=== PATIENT | female | born 1940 | race African-American/Black ===

== ENCOUNTER → 2019-02-26 | Outpatient (CLI) | payer MEDICARE, MEDICAID ==
[~2019-02-26] MED LIST: ACET250T3 PO; ADENOSINE 67 MG in GIVE UN-DILUTED 0 ML IV ONE; ADENOSINE 90 MG/30 ML INJ IV ONE; AMLO5TAB13 PO; ASP81EC PO; ATEN50TA PO; BENA20TA14 PO; DICL1GEL26 TD; ERGO2000 PO; ESOM40CA39 PO; FLUO0.05 EX; GLIM1TAB2 PO; IBUP600T27 PO; LOSA-49 PO; METF-370 PO; NATE60TA5 PO; TRIA75TA55 PO
[2019-02-26 16:28] LABS: Potassium 5.2 mmol/L (3.5-5.1); Urine Blood Negative /uL (Negative); Urine Specific Gravity 1.011 (1.001-1.035)
[2019-02-26 16:30] LABS: Basophils # (auto) 0.1 uL; Basophils % (auto) 0.7 % (0.0-2.0); Eosinophils # (auto) 0.2 uL; Eosinophils % (auto) 3.1 % (0.0-7.0); Hematocrit 36.7 % (36.0-46.0); Lymphocytes # (auto) 1.6 uL; Mean Corpuscular Hemoglobin 30.9 pg (28.0-32.0); Mean Corpuscular Hgb Conc. 32.7 g/dL (32.0-36.0); Mean Corpuscular Volume 94.6 fL (80.0-100.0); Monocytes # (auto) 0.6 uL; Monocytes % (auto) 8.6 % (0.0-12.0); Neutrophils # (auto) 4.6 uL; Neutrophils % (auto) 65.6 % (37.0-80.0); Nucleated Red Blood Cells % 0.5 %; Platelet Count (auto) 302 10^3/uL (140-450); Red Blood Cells 3.87 10^6/uL (4.0-5.20); Red Cell Distribution Width 13.9 % (11.8-14.3); White Blood Cell 7.1 10^3/uL (4.4-10.8)
[2019-02-26 16:39] LABS: Albumin 3.9 g/dL (3.4-5.0); BUN/Creatinine Ratio 31.5; Bilirubin, Total 0.2 mg/dL (0.2-1.0); Calcium 9.1 mg/dL (8.5-10.1); Total Protein 8.2 g/dL (6.4-8.2)
== END | disposition home or self-care (01) ==
LOC: Rad HDHVI 09:37
PROVIDERS: ATTEND Internal Medicine Cardiovascular Disease
DX: I99.8 Other disorder of circulatory system (principal); E11.21 Type 2 diabetes mellitus with diabetic nephropathy; E11.40 Type 2 diabetes mellitus with diabetic neuropathy, unspecified; D64.9 Anemia, unspecified; N39.0 Urinary tract infection, site not specified; E11.65 Type 2 diabetes mellitus with hyperglycemia; E11.59 Type 2 diabetes mellitus with other circulatory complications; I11.0 Hypertensive heart disease with heart failure; I50.9 Heart failure, unspecified
CPT/HCPCS: 36415; 78452; 80053; 81003; 85025; 87086; 87088; 87186; 93005; 96374; 96375; A9500; J0153

== ENCOUNTER → 2019-03-05 | Outpatient (CLI) | payer MEDICARE, MEDICAID ==
[~2019-03-05] VITALS: Ht 30.5 cm; Wt 0.5 kg
[~2019-03-05] MED LIST changes: -ADENOSINE 67 MG in GIVE UN-DILUTED 0 ML IV ONE; -ADENOSINE 90 MG/30 ML INJ IV ONE; +cefTRIAXone 1GM/50ML D5W 50 ML IV SCH; +cefTRIAXone SOD 1,000 MG VL ONE
[2019-03-05 10:10] VITALS: BP 169/59
[2019-03-05 10:45] VITALS: BP 166/59
--- NOTE | 2019-03-05 10:50 | NUR ---
IN TO CLINIC FOR IV ANTIBIOTICS. FIRST DAY OF 3 DAYS. PT REPORTS MANY SENSITIVITIES, BUT NO ALLERGIES. ADMINISTERED IV ROCEPHIN BY BUTTERFLY OVER 3 MINUTES SLOW IVP. TOLERATED WELL. MONITORED FOR 15 MINUTES POST IV PUSH. NO ADVERSE REACTION. PT REPORTS FEELING 'FINE" . Discharge Instructions See e-MAR for any mediations given with this visit. Patient education given on disease process. Patient verbalized understanding. Previous labs reviewed. Patient discharged in stable condition with after care instructions and follow up appointment. FOR 03/06/19. MEDICATION ADMINISTRATION ROCEPHIN 1 GRAM IVP AT 1033
== END | disposition home or self-care (01) ==
LOC: CHF HDHVI 10:06
PROVIDERS: ATTEND Internal Medicine Cardiovascular Disease
DX: N39.0 Urinary tract infection, site not specified (principal); I11.0 Hypertensive heart disease with heart failure; I50.9 Heart failure, unspecified; E11.21 Type 2 diabetes mellitus with diabetic nephropathy; E11.40 Type 2 diabetes mellitus with diabetic neuropathy, unspecified; E11.59 Type 2 diabetes mellitus with other circulatory complications; I99.8 Other disorder of circulatory system
CPT/HCPCS: 96374; G0463; J0696; 96375

== ENCOUNTER → 2019-03-06 | Outpatient (CLI) | payer MEDICARE, MEDICAID ==
[~2019-03-06] MED LIST changes: +LIDOCAINE 1% (LOCAL ANESTH.) PF 5ml SDV ONE; -cefTRIAXone 1GM/50ML D5W 50 ML IV SCH; +cefTRIAXone W LIDOCAINE 1 GM IM IM ONE
[2019-03-06 13:08] VITALS: BP 177/67
[2019-03-06 14:08] VITALS: BP 182/65
--- NOTE | 2019-03-06 14:11 | NUR ---
MULTIPLE ATTEMPTS WITH BUTTERFLY FOR IVP ROCEPHIN. 3 SUCCESSFUL ATTEMPTS WITH UNABLE TO ADMINISTER MEDICATION DUE TO IV BLOWING WITH VERY SLOW ADMINISTRATION. TOTAL 6 ATTEMPTS BY 3 RNS FOR BUTTERFLY INSERTION, UNSUCCESSFUL. CLINIC PROVIDER CONSULTED AND NEW ORDER FOR IM ADMINISTRATION RECIEVED. MEDICATED PER ORDER
--- NOTE | 2019-03-06 14:17 | NUR ---
CHF MEDICATION ADMINISTRATION ROCEPHIN WITH LIDOCAINE 1 GRAM IM TO RIGHT GLUT AT 1410
== END | disposition home or self-care (01) ==
LOC: CHF HDHVI 13:08
PROVIDERS: ATTEND Internal Medicine Cardiovascular Disease
DX: N39.0 Urinary tract infection, site not specified (principal); I11.0 Hypertensive heart disease with heart failure; I50.9 Heart failure, unspecified; E11.21 Type 2 diabetes mellitus with diabetic nephropathy; E11.40 Type 2 diabetes mellitus with diabetic neuropathy, unspecified; E11.59 Type 2 diabetes mellitus with other circulatory complications; I99.8 Other disorder of circulatory system
CPT/HCPCS: 96372; G0463; J0696

== ENCOUNTER → 2019-03-07 | Outpatient (CLI) | payer MEDICARE, MEDICAID ==
[~2019-03-07] MED LIST changes: -LIDOCAINE 1% (LOCAL ANESTH.) PF 5ml SDV ONE; +cefTRIAXone 1GM/50ML D5W 50 ML IV SCH; -cefTRIAXone W LIDOCAINE 1 GM IM IM ONE
[2019-03-07 13:20] VITALS: BP 161/74
--- NOTE | 2019-03-07 13:20 | NUR ---
CHF PT ARRIVED AT CHF CLINIC ALERT ORIENTED AND IN 0 DISTRESS. VITAL SIGNS OBTAINED. PT HERE FOR ANTIBIOTICS FOR CURRENT UTI
--- NOTE | 2019-03-07 13:30 | NUR ---
IV removal IV DC'd with sterile technique, catheter fully intact. Pressure dressing applied to site. Patient tolerated procedure well. Discharged with aftercare instructions per MD. NOTE:
[2019-03-07 13:40] VITALS: BP 166/76
--- NOTE | 2019-03-07 13:40 | NUR ---
Discharge Instructions See e-MAR for any mediations given with this visit. Patient education given on disease process. Patient verbalized understanding. Previous labs reviewed. Patient discharged in stable condition with after care instructions and follow up appointment. MEDICATIONS 1325 ROCEPHIN 1 GRAM IVPB X 1 Addendum: 03/07/19 at 1412 by RUTH CINTRON RN RN NC 1325 ROCEPHIN 1 GRAM IVP
--- NOTE | 2019-03-07 14:07 | NUR ---
IV insertion IV access obtained, via clean sterile technique by inserting A BUTTERFLY CATHETER after [1] attempt(s). IV secured properly. No trauma to site. Patient tolerated procedure well. Addendum: 03/07/19 at 1408 by RUTH CINTRON RN RN MT TIME ACTUALLY 1325
== END | disposition home or self-care (01) ==
LOC: CHF HDHVI 13:11
PROVIDERS: ATTEND Internal Medicine Cardiovascular Disease
DX: N81.10 Cystocele, unspecified (principal); N39.0 Urinary tract infection, site not specified; E11.40 Type 2 diabetes mellitus with diabetic neuropathy, unspecified; I11.0 Hypertensive heart disease with heart failure; I50.9 Heart failure, unspecified; E11.59 Type 2 diabetes mellitus with other circulatory complications; E11.21 Type 2 diabetes mellitus with diabetic nephropathy; I99.9 Unspecified disorder of circulatory system
CPT/HCPCS: 96374; G0463; J0696

== ENCOUNTER → 2019-04-11 | Outpatient (CLI) | payer MEDICARE, MEDICAID ==
[~2019-04-11] MED LIST changes: +GENTAMICIN SULF 80 MG/2 ML VIAL ONE; +GENTAMICIN SULFATE 160 MG in D5W 5% 100 ML IV ONE; -cefTRIAXone 1GM/50ML D5W 50 ML IV SCH; -cefTRIAXone SOD 1,000 MG VL ONE
[2019-04-11 15:43] VITALS: BP 187/77
--- NOTE | 2019-04-11 17:03 | NUR ---
CHF PT ARRIVED TO CHF CLINIC FROM [facility] OFFICE TREATMENT OF UTI. A/O X 3 0 DISTRESS V/S OBTAINED.
--- NOTE | 2019-04-11 17:09 | NUR ---
IV insertion IV access obtained, via clean sterile technique by inserting 24 gauge catheter at after attempt(s). IV secured properly. No trauma to site. Patient tolerated procedure well.
[2019-04-11 17:30] VITALS: BP 188/78
--- NOTE | 2019-04-11 17:30 | NUR ---
CHF CLINIC Discharge Instructions See e-MAR for any mediations given with this visit. Patient education given on disease process. Patient verbalized understanding. Previous labs reviewed. Patient discharged in stable condition with after care instructions and follow up appointment. NOTE GENT IV [id number] ADMIN BY SUSANNE INIGUEZ
--- NOTE | 2019-04-11 17:30 | NUR ---
IV removal IV DC'd with sterile technique, catheter fully intact. Pressure dressing applied to site. Patient tolerated procedure well.
[2019-04-12 11:58] LABS: Urine Blood Negative /uL (Negative); Urine Specific Gravity 1.012 (1.001-1.035)
== END | disposition home or self-care (01) ==
LOC: LAB 15:39
PROVIDERS: ATTEND Internal Medicine Cardiovascular Disease
DX: N39.0 Urinary tract infection, site not specified (principal)
CPT/HCPCS: 81003; 87086; 87088; 87186; 96365; G0463; J1580; J7060

== ENCOUNTER → 2019-04-23 | Outpatient (CLI) | payer MEDICARE, MEDICAID ==
[~2019-04-23] VITALS: Ht 30.5 cm; Wt 0.5 kg
[~2019-04-23] MED LIST changes: -GENTAMICIN SULF 80 MG/2 ML VIAL ONE; -GENTAMICIN SULFATE 160 MG in D5W 5% 100 ML IV ONE; +LIDOCAINE 1% (LOCAL ANESTH.) PF 5ml SDV ONE; +LIDOCAINE 1% HCL (LOCAL ANESTH.) INJ 20ML MDV ID ONE; +cefTRIAXone SOD 1,000 MG VL ONE; +cefTRIAXone W LIDOCAINE 1 GM IM IM ONE
[2019-04-23 12:00] VITALS: BP 184/67
[2019-04-23 12:30] VITALS: BP 175/66
--- NOTE | 2019-04-23 12:30 | NUR ---
IN TO CLINIC FOR FOLLOW UP REGARDING CHRONIC UTI. ORDERS IN PLACE FOR IM INJECTION. ORDERS CARRIED OUT AND TOLERATED WELL. Discharge Instructions See e-MAR for any mediations given with this visit. Patient education given on disease process. Patient verbalized understanding. Previous labs reviewed. Patient discharged in stable condition with after care instructions and follow up appointment FOR 04/24/19 MEDICATION ADMINIATRATION ROCEPHIN 1 GRAM IM WITH LIDOCAINE TO LEFT GLUT AT 1224
== END | disposition home or self-care (01) ==
LOC: CHF HDHVI 11:57
PROVIDERS: ATTEND Internal Medicine Cardiovascular Disease
DX: N39.0 Urinary tract infection, site not specified (principal)
CPT/HCPCS: 96372; G0463; J0696; J2001

== ENCOUNTER → 2019-04-24 | Outpatient (CLI) | payer MEDICARE, MEDICAID ==
[~2019-04-24] MED LIST changes: -AMLO5TAB13 PO; +AMLO5TAB15 PO; -LIDOCAINE 1% HCL (LOCAL ANESTH.) INJ 20ML MDV ID ONE; +LOSA-39 PO; -LOSA-49 PO
[2019-04-24 12:05] VITALS: BP 179/73
[2019-04-24 12:48] VITALS: BP 176/68
--- NOTE | 2019-04-24 12:50 | NUR ---
IN TO CLINIC FOR SECOND DOSE OF IM MEDICATION FOR SECOND UTI. MEDICATED PER ORDER. WITHOUT DISTRESS OR DISCOMFORT. Discharge Instructions See e-MAR for any mediations given with this visit. Patient education given on disease process. Patient verbalized understanding. Previous labs reviewed. Patient discharged in stable condition with after care instructions and follow up appointment FOR TOMORROW. MEDICATION ADMINISTRATION ROCEPHIN 1 GRAM IM WITH LIDOCAINE TO LEFT GLUT AT 1248
== END | disposition home or self-care (01) ==
LOC: CHF HDHVI 12:05
PROVIDERS: ATTEND Internal Medicine Cardiovascular Disease
DX: N39.0 Urinary tract infection, site not specified (principal)
CPT/HCPCS: 96372; G0463; J0696

== ENCOUNTER → 2019-04-25 | Outpatient (CLI) | payer MEDICARE, MEDICAID ==
[~2019-04-25] VITALS: Ht 30.5 cm; Wt 0.5 kg
[2019-04-25 12:00] VITALS: BP 180/82
[2019-04-25 12:20] VITALS: BP 176/69
--- NOTE | 2019-04-25 12:20 | NUR ---
CHF Clinic Discharge Instructions See e-MAR for any mediations given with this visit. Patient education given on disease process. Patient verbalized understanding. Previous labs reviewed. Patient discharged in stable condition with after care instructions and follow up appointment. Note Kely Guzman admin by Josefa CHONG.
== END | disposition home or self-care (01) ==
LOC: CHF HDHVI 12:00
PROVIDERS: ATTEND Internal Medicine Cardiovascular Disease
DX: N39.0 Urinary tract infection, site not specified (principal)
CPT/HCPCS: 96372; G0463; J0696

== ENCOUNTER → 2019-05-02 | Outpatient (CLI) | payer MEDICARE, MEDICAID ==
[~2019-05-02] MED LIST changes: +AMLO5TAB13 PO; -AMLO5TAB15 PO; -LIDOCAINE 1% (LOCAL ANESTH.) PF 5ml SDV ONE; -LOSA-39 PO; +LOSA-49 PO; -cefTRIAXone SOD 1,000 MG VL ONE; -cefTRIAXone W LIDOCAINE 1 GM IM IM ONE
[2019-05-03 12:35] LABS: Urine Blood Negative /uL (Negative); Urine Specific Gravity 1.014 (1.001-1.035)
== END | disposition home or self-care (01) ==
LOC: LAB 16:21
PROVIDERS: ATTEND Internal Medicine Cardiovascular Disease
DX: N39.0 Urinary tract infection, site not specified (principal)
CPT/HCPCS: 81003

== ENCOUNTER → 2019-06-20 | Outpatient (CLI) | payer MEDICARE, MEDICAID ==
[~2019-06-20] MED LIST changes: -AMLO5TAB13 PO; +AMLO5TAB15 PO; +LOSA-39 PO; -LOSA-49 PO
[2019-06-21 12:02] LABS: Urine Blood Negative /uL (Negative); Urine Specific Gravity 1.015 (1.001-1.035)
== END | disposition home or self-care (01) ==
LOC: LAB 15:37
PROVIDERS: ATTEND Internal Medicine Cardiovascular Disease
DX: N39.0 Urinary tract infection, site not specified (principal)
CPT/HCPCS: 81003; 87086

== ENCOUNTER → 2019-06-27 | Outpatient (CLI) | payer MEDICARE, MEDICAID ==
[2019-06-27 16:14] LABS: Urine Blood Negative /uL (Negative); Urine Specific Gravity 1.017 (1.001-1.035)
== END | disposition home or self-care (01) ==
LOC: LAB 13:15
PROVIDERS: ATTEND Internal Medicine Cardiovascular Disease
DX: N39.0 Urinary tract infection, site not specified (principal)
CPT/HCPCS: 81003; 87086

== ENCOUNTER → 2019-10-22 | Outpatient (CLI) | payer MEDICARE, MEDICAID ==
[2019-10-22 16:31] LABS: Urine Blood Negative /uL (Negative); Urine Specific Gravity 1.016 (1.001-1.035)
== END | disposition home or self-care (01) ==
LOC: LAB 12:23
PROVIDERS: ATTEND Internal Medicine Cardiovascular Disease
DX: N39.0 Urinary tract infection, site not specified (principal)
CPT/HCPCS: 81003; 87086

== ENCOUNTER → 2019-10-31 | Outpatient (CLI) | payer MEDICARE, MEDICAID ==
[~2019-10-31] MED LIST changes: -GLIM1TAB2 PO; +GLIM1TAB3 PO; +IOHEXOL 350 MG/ML 100ML IJ ONE; +READI-CAT 2 (BARIUM SULF)(VANILLA SMOOTHIE) 450ML ONE; +SODIUM CHLORIDE 0.9% 250 ML IV ONE
[2019-10-31 13:30] VITALS: BP 168/54
[2019-10-31 15:29] LABS: BUN/Creatinine Ratio 25.2; Calcium 8.4 mg/dL (8.5-10.1); Magnesium 1.7 mg/dL (1.6-2.6); Potassium 4.4 mmol/L (3.5-5.1)
[2019-10-31 16:30] VITALS: BP 166/64
== END | disposition home or self-care (01) ==
LOC: Rad HDHVI 13:04
PROVIDERS: ATTEND Internal Medicine Cardiovascular Disease
DX: R42 Dizziness and giddiness (principal); R06.02 Shortness of breath; R94.4 Abnormal results of kidney function studies; E83.40 Disorders of magnesium metabolism, unspecified; E11.22 Type 2 diabetes mellitus with diabetic chronic kidney disease; N18.9 Chronic kidney disease, unspecified; I10 Essential (primary) hypertension; N39.0 Urinary tract infection, site not specified
CPT/HCPCS: 36415; 74176; 80048; 83735; 96360; G0463; J7050; Q9967; 96365

== ENCOUNTER → 2020-01-02 | Outpatient (CLI) | payer MEDICARE, MEDICAID ==
[~2020-01-02] MED LIST changes: -IOHEXOL 350 MG/ML 100ML IJ ONE; -READI-CAT 2 (BARIUM SULF)(VANILLA SMOOTHIE) 450ML ONE; -SODIUM CHLORIDE 0.9% 250 ML IV ONE
[2020-01-02 16:04] LABS: Urine Blood Negative /uL (Negative); Urine Specific Gravity 1.014 (1.001-1.035)
== END | disposition home or self-care (01) ==
LOC: LAB 14:22
PROVIDERS: ATTEND Internal Medicine Cardiovascular Disease
DX: N39.0 Urinary tract infection, site not specified (principal)
CPT/HCPCS: 81003; 87086; 87088; 87186

== ENCOUNTER → 2020-01-11 | Outpatient (CLI) | payer MEDICARE, MEDICAID ==
[2020-01-11 15:31] LABS: Urine Blood Negative /uL (Negative); Urine Specific Gravity 1.016 (1.001-1.035)
== END | disposition home or self-care (01) ==
LOC: LAB 11:06
PROVIDERS: ATTEND Internal Medicine Cardiovascular Disease
DX: N39.0 Urinary tract infection, site not specified (principal)
CPT/HCPCS: 81003

== ENCOUNTER → 2020-01-31 | Outpatient (CLI) | payer MEDICARE, MEDICAID ==
[~2020-01-31] MED LIST changes: +DOXA2TAB PO
[2020-01-31 15:51] LABS: Urine Blood Negative /uL (Negative); Urine Specific Gravity 1.015 (1.001-1.035)
== END | disposition home or self-care (01) ==
LOC: LAB 13:29
PROVIDERS: ATTEND Internal Medicine Cardiovascular Disease
DX: N39.0 Urinary tract infection, site not specified (principal)
CPT/HCPCS: 81003; 87086

== ENCOUNTER 2020-02-03 17:40 | Inpatient (IN) | payer MEDICARE, MEDICAID ==
[~2020-02-03] VITALS: Ht 170.2 cm; Wt 86.3 kg
[~2020-02-03 17:40] MED LIST changes: -DOXA2TAB PO
[2020-02-03 18:52] LABS: Basophils # (auto) 0.1 10 ^3/uL (0-0.2); Basophils % (auto) 0.6 % (0.0-2.0); Eosinophils # (auto) 0.1 10 ^3/uL (0-0.8); Eosinophils % (auto) 1.3 % (0.0-7.0); Hematocrit 35.7 % (36.0-46.0); Hemoglobin 11.9 g/dL (12.2-16.2); Lymphocytes # (auto) 0.9 10 ^3/uL (0.4-5.4); Lymphocytes % (auto) 9.5 % (10.0-50.0); Mean Corpuscular Hemoglobin 32.3 pg (28.0-32.0); Mean Corpuscular Hgb Conc. 33.4 g/dL (32.0-36.0); Mean Corpuscular Volume 96.8 fL (80.0-100.0); Monocytes # (auto) 0.5 10 ^3/uL (0-1.3); Monocytes % (auto) 5.4 % (0.0-12.0); Neutrophils % (auto) 83.2 % (37.0-80.0); Platelet Count (auto) 220 10^3/uL (140-450); Red Blood Cells 3.69 10^6/uL (4.0-5.20); Red Cell Distribution Width 14.5 % (11.8-14.3); White Blood Cell 9.6 10^3/uL (4.4-10.8)
[2020-02-03 19:31] LABS: Albumin 3.9 g/dL (3.4-5.0); Calcium 8.5 mg/dL (8.5-10.1)
[2020-02-03 19:36] LABS: Bilirubin, Total 0.2 mg/dL (0.2-1.0)
[2020-02-03 19:47] LABS: INR 0.98 (0.9-1.15); Partial Thromboplastin Time 29.8 sec (23.64-32.05)
[2020-02-03 19:58] LABS: Potassium 6.1 mmol/L (3.5-5.1)
[2020-02-03] MEDS ORDERED: ASPirin-EC 81 mg tab PO ONE (20:15)
[2020-02-03] MEDS ORDERED: InsuLIN REG 1unit/0.01ml Soln (100units/ml) IV ONE (20:30)
[2020-02-03] MEDS ORDERED: SODIUM BICARBONATE 8.4% INJ 50ML SYRINGE IV ONE (20:30)
[2020-02-03] MEDS ORDERED: DEXTROSE (50%) 50ML SYRG IV ONE (20:30)
[2020-02-03] MEDS ORDERED: CALCIUM GLUC 4.65meq/50ml D5AE 50 ML IV ONE (20:30)
[2020-02-03] MEDS ORDERED: SODIUM CHLORIDE 0.9% 500 ML IV ONE (21:15)
[2020-02-03] MEDS ORDERED: SODIUM ZIRCONIUM CYCL 10 GM PAK PO ONE ×2 (21:15)
[2020-02-03] MEDS ORDERED: FUROSEMIDE 40 MG/4 ML VIAL IV ONE (21:15)
[2020-02-04 00:35] LABS: Calcium 7.8 mg/dL (8.5-10.1); Potassium 5.3 mmol/L (3.5-5.1)
[2020-02-04] MEDS ORDERED: MORPHINE SULF INJ 2 MG/ML SYRINGE 1ML IV PRN (01:30)
[2020-02-04] MEDS ORDERED: NITROGLYCERIN 0.4 MG SL TAB SL PRN (01:30)
[2020-02-04] MEDS ORDERED: DEXTROSE (50%) 50ML SYRG IV PRN (01:30)
[2020-02-04 02:38] LABS: Calcium 8.2 mg/dL (8.5-10.1); Potassium 5.3 mmol/L (3.5-5.1)
[2020-02-04 02:40] LABS: BUN/Creatinine Ratio 33.3
[2020-02-04] MEDS ORDERED: cloNIDine HCL 0.1 MG TAB PO ONE (02:45)
[2020-02-04 03:26] VITALS: BP 157/73
--- NOTE | 2020-02-04 03:26 | NUR ---
Telemetry admit from ER DASHA MENDOSARIA admitted to Telemetry unit after SBAR received. Patient oriented to AUDELIA JAMES RN primary RN, unit, room, bed, and unit policies regarding patient care and visiting hours. Patient now on continuous telemetry monitoring, tele box # 67 and telemetry reading on arrival to unit is sinus rhythm at 68bpm. Patient placed on bedside oxygen, weighed by bedscale and encouraged to call if they need something. All questions and concerns addressed, patient verbalized understanding. Note: Patient is alert and oriented, no distress noted and patient denies pain. Assisted patient to the toilet with limited assistance. Patient has mild weakness to bilateral lower extremities.
--- NOTE | 2020-02-04 04:26 | NUR ---
MED RECONCILIATION UNABLE TO OBTAIN MEDS. PATIENT STATES THAT SHE DOES NOT HAVE A LIST AND SHE DOES NOT REMEMBER DOSES.
[2020-02-04 05:14] VITALS: BP 157/73
[2020-02-04] MEDS: InsuLIN REG 1unit/0.01ml Soln (100units/ml) SC SCH ×4 (06:00→23:34)
[2020-02-04] MEDS: ACCU-CHEK COMFORT CURVE STRIP VI SCH ×4 (06:21→23:34)
--- NOTE | 2020-02-04 06:22 | NUR ---
PATIENT REFUSED INSULIN COVERAGE FOR BLOOD SUGAR OF 146. PATIENT STATES, "IF MY SUGAR GOES LOWER THAT THAT, IT DOES NOT FEEL GOOD".
[2020-02-04 08:00] VITALS: BP 157/67
[2020-02-04] MEDS: ASPirin-EC 81 mg tab PO SCH (09:45)
[2020-02-04] MEDS: amLODIPine BESYLATE 5 MG TAB PO SCH (09:45)
[2020-02-04] MEDS: ATENOLOL 25 MG TAB PO SCH (09:46)
[2020-02-04 12:00] VITALS: BP 151/79
[2020-02-04] MEDS: SODIUM CHLORIDE 0.9% 1,000 ML IV SCH ×2 (15:35→23:34)
[2020-02-04 17:00] VITALS: BP 153/60
--- NOTE | 2020-02-04 19:20 | NUR ---
Opening Shift Note Assumed care of patient, awake, alert and oriented x4, even and unlabored respirations, no S/S of distress/SOB or pain. Patient able to turn independently, bed in lowest locked position, side rails up x2, call light within reach. Instructed on POC and to call for assist PRN, will continue to monitor for changes Q1hr and PRN.
[2020-02-04 22:00] VITALS: BP 147/96
[2020-02-05] MEDS: cloNIDine HCL 0.1 MG TAB PO PRN ×4 (00:17→22:15)
[2020-02-05 05:00] VITALS: BP 147/69
[2020-02-05] MEDS: ACCU-CHEK COMFORT CURVE STRIP VI SCH ×3 (05:32→18:43)
[2020-02-05] MEDS: InsuLIN REG 1unit/0.01ml Soln (100units/ml) SC SCH ×3 (05:32→18:00)
[2020-02-05 06:37] LABS: Calcium 8.3 mg/dL (8.5-10.1); Potassium 4.8 mmol/L (3.5-5.1)
[2020-02-05 06:40] LABS: BUN/Creatinine Ratio 37.7
[2020-02-05 08:00] VITALS: BP 157/74
[2020-02-05] MEDS: SODIUM CHLORIDE 0.9% 1,000 ML IV SCH ×2 (09:08→19:30)
[2020-02-05] MEDS: ASPirin-EC 81 mg tab PO SCH (09:09)
[2020-02-05] MEDS: ATENOLOL 25 MG TAB PO SCH (09:09)
[2020-02-05] MEDS: amLODIPine BESYLATE 5 MG TAB PO SCH (09:09)
[2020-02-05 13:00] VITALS: BP 159/69
[2020-02-05] MEDS ORDERED: OMNIPAQUE ORAL SOLN 500ml 12mg/ml PO ONE (15:04)
[2020-02-05 17:00] VITALS: BP 145/70
--- NOTE | 2020-02-05 17:13 | NUR ---
IV INSERTION TO LFA#20, IV FLUSHES WELL, NO COMPLICATIONS. PT TOLERATED PROCEDURE WELL. PT TAKEN TO CT SCAN, TRANSPORTED VIA WHEELCHAIR. NO S/S OF DISTRESS.
[2020-02-05 17:46] LABS: Urine Bacteria FEW /hpf (None Seen); Urine Blood Negative /uL (Negative); Urine Specific Gravity 1.003 (1.001-1.035); Urine WBC 3 /hpf (0 - 5)
--- NOTE | 2020-02-05 19:20 | NUR ---
opening shift note Assumed care of patient who is A&O x4. Currently on RA with no s/s of distress. Denies pain at this time. PIV in right forearm leaking. Discontinued using clean technique. Catheter tip is fully intact. Pressure dressing applied. Patient tolerated well. Patient is ambulatory with the use of a walker at baseline. Walker is not present at the bedside. Observed patietn ambulate to the restroom without the use of an assistive device. Gait is steady. PIV in left forearm is intact and patent; IVF infusing as ordered. Bed is in low locked position with side rails up x2. Call light is within reach and patient encouraged to call for assistance when needed. Will continue to monitor for changes PRN.
[2020-02-05 20:00] VITALS: BP 151/78
[2020-02-05 22:00] VITALS: BP 151/78
[2020-02-06] MEDS: ACCU-CHEK COMFORT CURVE STRIP VI SCH ×4 (00:06→17:50)
--- NOTE | 2020-02-06 03:43 | NUR ---
Paged Paged Dr. Lopes to notify of UA results. Awaiting call back.
--- NOTE | 2020-02-06 04:19 | NUR ---
ORDERS RECEIVED Received call back from Dr. Lopes. New orders received; read back and verified. Will follow through.
[2020-02-06] MEDS ORDERED: levoFLOXacin 500MG 100 ML IV ONE (04:45)
[2020-02-06 05:00] VITALS: BP 153/71
[2020-02-06] MEDS: SODIUM CHLORIDE 0.9% 1,000 ML IV SCH ×2 (05:34→12:40)
[2020-02-06] MEDS: InsuLIN REG 1unit/0.01ml Soln (100units/ml) SC SCH ×4 (06:18→17:52)
[2020-02-06] MEDS: cloNIDine HCL 0.1 MG TAB PO PRN ×3 (06:21→18:48)
[2020-02-06 08:00] VITALS: BP 187/77
[2020-02-06 09:00] VITALS: BP 187/77
[2020-02-06] MEDS: ASPirin-EC 81 mg tab PO SCH (09:47)
[2020-02-06] MEDS: amLODIPine BESYLATE 5 MG TAB PO SCH (09:47)
[2020-02-06] MEDS: ATENOLOL 25 MG TAB PO SCH (09:48)
[2020-02-06 13:00] VITALS: BP 167/76
[2020-02-06] MEDS ORDERED: DOXA2TAB PO (15:36)
--- NOTE | 2020-02-06 16:45 | NUR ---
SPOKE TO PATIENTS DAUGHTER, SAHRA, AND RECONCILED MEDICATIONS
[2020-02-06 17:25] VITALS: BP 186/75
--- NOTE | 2020-02-06 19:30 | NUR ---
OPENING SHIFT NOTE Assumed care of patient who is A&Ox4. Currently on RA with no s/s of SOB or distress. Denies pain at this time. Patient is ambulatory with the use of a walker at baseline, no walker is present at the bedside. Patient is ambulating to the restroom independently without the use of assistive devices and gait is steady. PIV in left forearm is intact and patent. Currently infusing IVF as ordered. POC discussed with patient who verbalizes understanding. Bed is in low locked position with side rails up x2. Call light is within reach and patient encouraged to call for assistance when needed. Will continue to monitor for changes PRN.
[2020-02-06 22:00] VITALS: BP 151/71
--- NOTE | 2020-02-06 22:00 | NUR ---
ELEVATED BLOOD PRESSURE Blood pressure is 151/71. PRN Catapres 0.1mg not administered due to heart rate of 52. Will continue to monitor for changes in vital signs.
[2020-02-07] VITALS (7 sets, daily range): BP systolic 107–189; BP diastolic 56–82
[2020-02-07] MEDS: ACCU-CHEK COMFORT CURVE STRIP VI SCH ×4 (00:20→17:33)
[2020-02-07] MEDS: SODIUM CHLORIDE 0.9% 1,000 ML IV SCH ×3 (00:21→21:30)
--- NOTE | 2020-02-07 01:00 | NUR ---
Elevated Blood pressure Blood pressure is 157/59. PRN Catapres not administered due to heart rate of 47. Patient is asymptomatic. Will continue to monitor V/S for changes.
--- NOTE | 2020-02-07 05:00 | NUR ---
Blood pressure Blood pressure is 154/57. Catapres 0.1mg not administered due to heart rate of 53 and side effect of bradycardia. Will continue to monitor vital signs.
[2020-02-07] MEDS: InsuLIN REG 1unit/0.01ml Soln (100units/ml) SC SCH ×5 (05:35→22:39)
--- NOTE | 2020-02-07 09:01 | NUR ---
LEFT MESSAGE FOR DR DAVIDSON THAT PATIENTS BP IS 189/70, WITH HEART RATE IN THE LOW 50'S. PATIENT HAS SCHEDULED ATENOLOL AND PRN CATAPRES, BUT OF WHICH AFFECT HEART RATE. AWAITING ORDER FOR DIFFERENT BP MED
--- NOTE | 2020-02-07 09:27 | NUR ---
RECEIVED ORDER FROM DR DAVIDSON TO GIVE CATAPRES. CARRIED OUT ORDER
[2020-02-07] MEDS: levoFLOXacin 250MG 50 ML IV SCH (09:36)
[2020-02-07] MEDS: ASPirin-EC 81 mg tab PO SCH (09:36)
[2020-02-07] MEDS: ATENOLOL 25 MG TAB PO SCH (09:37)
[2020-02-07] MEDS: amLODIPine BESYLATE 5 MG TAB PO SCH (09:37)
[2020-02-07] MEDS: cloNIDine HCL 0.1 MG TAB PO PRN ×2 (09:38→18:08)
--- NOTE | 2020-02-07 12:09 | NUR ---
DR ADVIDSON BEDSIDE WITH PATIENT DISCUSSING PLAN OF CARE. ORDERS RECEIVED AND CARRIED OUT
[2020-02-07] MEDS ORDERED: cloNIDine 0.2 mg/24hr 7DAY PATCH TD SCH (12:15)
--- NOTE | 2020-02-07 13:56 | NUR ---
RECEIVED ORDERS FROM DR DAVIDSON. ORDERS CARRIED OUT.
[2020-02-07] MEDS: hydrALAZINE HCL 25 MG TAB PO SCH (22:26)
--- NOTE | 2020-02-07 22:41 | NUR ---
PT STATES SHE IS GOING TO BED SOON AND WANTS HER BLOOD SUGAR CHECKED.NOW. BLOOD SUGAR IS 202. PT STATES SHE DOES NOT WANT 6 UNITS OF INSULIN BECAUSE HER SUGAR DROPPED TO THIRTY ONE NIGHT.6 UNITS OF INSULIN IS WHAT HER SLIDING SCALE CALLS FOR.DENISE EWING PRIVY TO CONVERSATION.
[2020-02-08] VITALS (7 sets, daily range): BP systolic 153–189; BP diastolic 70–90
[2020-02-08] MEDS: ACCU-CHEK COMFORT CURVE STRIP VI SCH ×4 (06:00→18:11)
[2020-02-08] MEDS: InsuLIN REG 1unit/0.01ml Soln (100units/ml) SC SCH ×3 (06:00→18:12)
--- NOTE | 2020-02-08 06:37 | NUR ---
B/P TAKEN MANUALLY IS 140/72 WITH HEART RATE OF 57. NO DISTRESS;WILL CONTINUE TO MONITOR.
--- NOTE | 2020-02-08 07:00 | NUR ---
Opening Shift Note Received report on the patient. Awake lying in bed. Discussed the plan of care with the patient. Patient does not show any signs of distress at this time. Bed in lowest position, side rails up x2, and the call light is within reach. Will continue to monitor.
[2020-02-08] MEDS: SODIUM CHLORIDE 0.9% 1,000 ML IV SCH ×2 (10:40→18:11)
[2020-02-08] MEDS: levoFLOXacin 250MG 50 ML IV SCH (10:41)
[2020-02-08] MEDS: hydrALAZINE HCL 25 MG TAB PO SCH (10:41)
[2020-02-08] MEDS: ASPirin-EC 81 mg tab PO SCH (10:41)
[2020-02-08] MEDS: cloNIDine HCL 0.1 MG TAB PO PRN ×2 (12:15→18:15)
--- NOTE | 2020-02-08 15:56 | NUR ---
Nutrition Assessment Notes Please refer to link for full assessment notes. Est energy needs: 9251-7830 kcals (23-25 kcal/kgBW) Est protein needs: 68-74 gms/day (1.0-1.1 gm/kgBW) Will continue to monitor and reassess prn. Addendum: 02/08/20 at [address] Amended: Links added.
--- NOTE | 2020-02-08 19:12 | NUR ---
Home Health Faxed the order, face sheet, and H&P to [facility] for home health. Per Carina "she will call them in the morning and set up home health".
--- NOTE | 2020-02-08 19:15 | NUR ---
Opening Shift Note Assumed care of patient, awake and alert. No S/S of distress/SOB or pain. Safety measures in place bed in lowest position, call light within reach, side rails up x2. Instructed on POC and to call for assist PRN, will continue to monitor for changes Q1hr and PRN.
--- NOTE | 2020-02-08 19:58 | NUR ---
Patient discharged from unit. Patient provided discharge instruction pertaining to medication, follow up appointments, and health education. Patient verbalized understanding. IV discontinued, patient tolerated well. vehicle monitor technician removed and returned. Patient left unit via wheelchair escorted by staff.
== END 2020-02-08 19:58 | disposition home or self-care (01) | DRG 682 ==
LOC: EDBD 17:40 → ER 17:40 → TELE 17:41 → TELE-WESTW 02-04 03:26
PROVIDERS: ADMIT Internal Medicine Cardiovascular Disease; ATTEND Internal Medicine Cardiovascular Disease
DX: N17.9 Acute kidney failure, unspecified (principal); A41.9 Sepsis, unspecified organism; I47.2 Ventricular tachycardia; M31.8 Other specified necrotizing vasculopathies; N39.0 Urinary tract infection, site not specified; E87.1 Hypo-osmolality and hyponatremia; E87.5 Hyperkalemia; I10 Essential (primary) hypertension; R55 Syncope and collapse; D64.9 Anemia, unspecified; E11.40 Type 2 diabetes mellitus with diabetic neuropathy, unspecified; L80 Vitiligo; E03.9 Hypothyroidism, unspecified; E78.00 Pure hypercholesterolemia, unspecified; M19.90 Unspecified osteoarthritis, unspecified site; Z79.899 Other long term (current) drug therapy; Z83.3 Family history of diabetes mellitus; Z80.9 Family history of malignant neoplasm, unspecified; Z82.49 Family history of ischemic heart disease and other diseases of the circulatory system
CPT/HCPCS: 36415; 70450; 71045; 71260; 74177; 80048; 80053; 81001; 82962; 83735; 83880; 84484; 85025; 85610; 85730; 86141; 86225; 86235; 87205; 93005; 96361; 96374; G0378; J1815; J1956

== ENCOUNTER → 2020-02-18 | Outpatient (CLI) | payer MEDICARE, MEDICAID ==
[~2020-02-18] MED LIST changes: -ACET250T3 PO; -AMLO5TAB15 PO; +DOXA2TAB PO; -LOSA-39 PO
[2020-02-18 15:48] LABS: Basophils # (auto) 0 10 ^3/uL (0-0.2); Basophils % (auto) 0.6 % (0.0-2.0); Eosinophils # (auto) 0.2 10 ^3/uL (0-0.8); Eosinophils % (auto) 2.5 % (0.0-7.0); Hemoglobin 12.3 g/dL (12.2-16.2); Lymphocytes # (auto) 1.4 10 ^3/uL (0.4-5.4); Mean Corpuscular Hemoglobin 30.8 pg (28.0-32.0); Mean Corpuscular Hgb Conc. 31.7 g/dL (32.0-36.0); Mean Corpuscular Volume 97.3 fL (80.0-100.0); Monocytes # (auto) 0.6 10 ^3/uL (0-1.3); Monocytes % (auto) 8.9 % (0.0-12.0); Nucleated Red Blood Cells % 0.1 %; Platelet Count (auto) 285 10^3/uL (140-450); Red Cell Distribution Width 14.7 % (11.8-14.3); White Blood Cell 7.2 10^3/uL (4.4-10.8)
[2020-02-18 16:02] LABS: Urine Blood Negative /uL (Negative); Urine Specific Gravity 1.015 (1.001-1.035)
== END | disposition home or self-care (01) ==
LOC: LAB 11:56
PROVIDERS: ATTEND Internal Medicine Cardiovascular Disease
DX: N39.0 Urinary tract infection, site not specified (principal); D64.9 Anemia, unspecified
CPT/HCPCS: 36415; 81003; 85025

== ENCOUNTER → 2020-02-28 | Outpatient (CLI) | payer MEDICARE, MEDICAID ==
[~2020-02-28] VITALS: Ht 170.2 cm; Wt 81.2 kg
[~2020-02-28] MED LIST changes: +ADENOSINE 68 MG in GIVE UN-DILUTED 0 ML IV ONE; +ADENOSINE 90 MG/30 ML INJ IV ONE; +CYANOCOBALAMIN (B-12) 1000 MCG/1 ML VIAL IM ONE; +CYANOCOBALAMIN (B-12) 1000 MCG/1 ML VIAL ONE; +ONDANSETRON HCL 4 MG/2 ML VIAL IV ONE; +ONDANSETRON HCL 4 MG/2 ML VIAL ONE; +cloNIDine HCL 0.1 MG TAB ONE; +cloNIDine HCL 0.1 MG TAB PO ONE
[2020-02-28 15:52] LABS: Basophils # (auto) 0 10 ^3/uL (0-0.2); Basophils % (auto) 0.6 % (0.0-2.0); Eosinophils # (auto) 0.1 10 ^3/uL (0-0.8); Eosinophils % (auto) 2.1 % (0.0-7.0); Hematocrit 35.2 % (36.0-46.0); Hemoglobin 11.5 g/dL (12.2-16.2); Lymphocytes # (auto) 1.3 10 ^3/uL (0.4-5.4); Lymphocytes % (auto) 18.6 % (10.0-50.0); Mean Corpuscular Hemoglobin 31.7 pg (28.0-32.0); Mean Corpuscular Hgb Conc. 32.7 g/dL (32.0-36.0); Mean Corpuscular Volume 97.1 fL (80.0-100.0); Monocytes # (auto) 0.7 10 ^3/uL (0-1.3); Monocytes % (auto) 10.7 % (0.0-12.0); Neutrophils # (auto) 4.7 10 ^3/uL (1.6-8.6); Platelet Count (auto) 295 10^3/uL (140-450); Red Blood Cells 3.63 10^6/uL (4.0-5.20); Red Cell Distribution Width 14.9 % (11.8-14.3); White Blood Cell 6.9 10^3/uL (4.4-10.8)
[2020-02-28 16:10] LABS: BUN/Creatinine Ratio 21.1; Calcium 8.5 mg/dL (8.5-10.1); Magnesium 1.9 mg/dL (1.6-2.6)
[2020-02-28 16:16] VITALS: BP 151/58
[2020-02-28 16:26] LABS: Potassium 6.6 mmol/L (3.5-5.1)
[2020-02-28 17:04] VITALS: BP 126/40
[2020-02-29 11:42] LABS: Urine Blood Negative /uL (Negative); Urine Specific Gravity 1.014 (1.001-1.035)
== END | disposition home or self-care (01) ==
LOC: Rad HDHVI 12:53
PROVIDERS: ATTEND Internal Medicine Cardiovascular Disease
DX: R07.89 Other chest pain (principal); R53.83 Other fatigue; R06.02 Shortness of breath; D64.9 Anemia, unspecified; R00.2 Palpitations; N39.0 Urinary tract infection, site not specified; E87.5 Hyperkalemia; I10 Essential (primary) hypertension; E03.9 Hypothyroidism, unspecified; E78.00 Pure hypercholesterolemia, unspecified; E11.40 Type 2 diabetes mellitus with diabetic neuropathy, unspecified; M19.90 Unspecified osteoarthritis, unspecified site; Z79.899 Other long term (current) drug therapy
CPT/HCPCS: 36415; 78452; 80048; 81003; 83735; 85025; 87086; 93005; 96372; 96374; 96375; A9500; G0463; J0153; J2405; J3420

== ENCOUNTER → 2020-03-03 | Outpatient (CLI) | payer MEDICARE, MEDICAID ==
[~2020-03-03] VITALS: Ht 33 cm; Wt 81.6 kg
[~2020-03-03] MED LIST changes: -ADENOSINE 68 MG in GIVE UN-DILUTED 0 ML IV ONE; -ADENOSINE 90 MG/30 ML INJ IV ONE; -CYANOCOBALAMIN (B-12) 1000 MCG/1 ML VIAL IM ONE; -CYANOCOBALAMIN (B-12) 1000 MCG/1 ML VIAL ONE; +FUROSEMIDE 40 MG/4 ML VIAL IV ONE; +FUROSEMIDE 40 MG/4 ML VIAL ONE; -ONDANSETRON HCL 4 MG/2 ML VIAL IV ONE; -ONDANSETRON HCL 4 MG/2 ML VIAL ONE; +SODIUM CHLORIDE 0.9% 250 ML IV ONE; -cloNIDine HCL 0.1 MG TAB ONE; -cloNIDine HCL 0.1 MG TAB PO ONE
[2020-03-03 11:30] VITALS: BP 203/87
--- NOTE | 2020-03-03 11:30 | NUR ---
Patient came in for lab redraw sent stat, and IV hydration. Patient AAOx4, breathing even and unlabored, wearing face mask, ambulatory with walker. Patient has hypertension and has anxiety, will continue to monitor BP.
--- NOTE | 2020-03-03 11:31 | NUR ---
IV insertion IV access obtained, via clean sterile technique by inserting 24 gauge catheter at after 1 attempt(s). IV secured properly. No trauma to site. Patient tolerated procedure well.
--- NOTE | 2020-03-03 11:45 | NUR ---
Patient BP down to 182/80. IV fluid started, blood sent to lab.
[2020-03-03 12:17] LABS: Calcium 8.9 mg/dL (8.5-10.1)
[2020-03-03 12:20] LABS: BUN/Creatinine Ratio 21.3
--- NOTE | 2020-03-03 14:25 | NUR ---
Critical lab results called to clinic by [facility] lab, Dr Lopes notified of critical potassium, new orders received as entered. Patient given Veltassa 8.4GM and samples with instructions to take every other day, patient verbalized understanding.
[2020-03-03 15:45] VITALS: BP 189/72
--- NOTE | 2020-03-03 15:45 | NUR ---
CHF Clinic Discharge Instructions See e-MAR for any mediations given with this visit. Patient education given on disease process. Patient verbalized understanding. Previous labs reviewed. Patient discharged in stable condition with after care instructions and follow up appointment on 03/12/20. Note NS [id number] admin by Emilee INIGUEZ. NS bolus [id number] admin by Emilee INIGUEZ. Lasix IVP admin by Xavier INIGUEZ. Veltassa admin by Emilee INIGUEZ.
== END | disposition home or self-care (01) ==
LOC: CHF HDHVI 11:03
PROVIDERS: ATTEND Internal Medicine Cardiovascular Disease
DX: E87.6 Hypokalemia (principal)
CPT/HCPCS: 36415; 80048; 96361; 96374; G0463; J1940

== ENCOUNTER → 2020-03-07 | Outpatient (CLI) | payer MEDICARE, MEDICAID ==
[~2020-03-07] MED LIST changes: -FUROSEMIDE 40 MG/4 ML VIAL IV ONE; -FUROSEMIDE 40 MG/4 ML VIAL ONE; -SODIUM CHLORIDE 0.9% 250 ML IV ONE
[2020-03-07 16:09] LABS: BUN/Creatinine Ratio 25.9; Calcium 9.3 mg/dL (8.5-10.1); Potassium 5.1 mmol/L (3.5-5.1)
== END | disposition home or self-care (01) ==
LOC: CHF HDHVI 11:29
PROVIDERS: ATTEND Internal Medicine Cardiovascular Disease
DX: I10 Essential (primary) hypertension (principal)
CPT/HCPCS: 36415; 80048

== ENCOUNTER → 2020-03-12 | Outpatient (CLI) | payer MEDICARE, MEDICAID | END | disposition home or self-care (01) | LOC: Rad HDHVI 14:03 | PROVIDERS: ATTEND Internal Medicine Cardiovascular Disease | DX: I10 Essential (primary) hypertension (principal); R06.02 Shortness of breath; E78.5 Hyperlipidemia, unspecified | CPT/HCPCS: 93306 ==

== ENCOUNTER → 2020-04-01 | Outpatient (CLI) | payer MEDICARE, MEDICAID ==
[2020-04-01 15:55] LABS: Urine Blood Negative /uL (Negative); Urine Specific Gravity 1.015 (1.001-1.035)
[2020-04-01 16:09] LABS: BUN/Creatinine Ratio 27.2; Calcium 8.9 mg/dL (8.5-10.1)
== END | disposition home or self-care (01) ==
LOC: LAB 13:29
PROVIDERS: ATTEND Internal Medicine Cardiovascular Disease
DX: E87.5 Hyperkalemia (principal); N39.0 Urinary tract infection, site not specified
CPT/HCPCS: 36415; 80048; 81003; 87086; 87088; 87186

== ENCOUNTER → 2020-04-07 | Outpatient (CLI) | payer MEDICARE, MEDICAID ==
[~2020-04-07] MED LIST changes: +NIFEdipine ER 30 MG TAB PO ONE; +cefTRIAXone 1GM/50ML D5W 50 ML IV ONE; +cloNIDine HCL 0.1 MG TAB ONE; +cloNIDine HCL 0.1 MG TAB PO ONE
[2020-04-07 13:00] VITALS: BP 202/74
[2020-04-07 17:25] VITALS: BP 168/78
== END | disposition home or self-care (01) ==
LOC: CHF HDHVI 12:54
PROVIDERS: ATTEND Internal Medicine Cardiovascular Disease
DX: N39.0 Urinary tract infection, site not specified (principal); E78.5 Hyperlipidemia, unspecified; E03.9 Hypothyroidism, unspecified; E78.00 Pure hypercholesterolemia, unspecified; E11.40 Type 2 diabetes mellitus with diabetic neuropathy, unspecified; M19.90 Unspecified osteoarthritis, unspecified site; Z79.899 Other long term (current) drug therapy
CPT/HCPCS: 96365; G0463; J0696

== ENCOUNTER → 2020-04-08 | Outpatient (CLI) | payer MEDICARE, MEDICAID ==
[~2020-04-08] MED LIST changes: -NIFEdipine ER 30 MG TAB PO ONE; +cefTRIAXone 1GM/50ML D5W 100 ML IV ONE; -cefTRIAXone 1GM/50ML D5W 50 ML IV ONE; +cefTRIAXone SOD 1,000 MG VL ONE
[2020-04-08 13:14] VITALS: BP 201/75
--- NOTE | 2020-04-08 13:14 | NUR ---
CHF PT ARRIVED TO THE CHF CLINIC FOR IV ANTIBIOTIC TREATMENT DAY 2 OF 3 PER MD ORDERS. PT ARRIVED WITH A 24 G IV IN THE R HAND SECURED IN PLACE. IV WAS DIFFICULT TO FLUSH POSSIBLE DUE TO KINK. IV WAS REMOVED CATHETER TIP IN PLACE.
--- NOTE | 2020-04-08 13:30 | NUR ---
IV insertion IV access obtained, via clean sterile technique by inserting 22 gauge catheter at after 1 attempt(s). IV secured properly. No trauma to site. Patient tolerated procedure well. LABS DRAWN AND SENT NOTE INSERTED BY DEL INIGUEZ
--- NOTE | 2020-04-08 13:40 | NUR ---
ROCEPHIN IV STARTED @ 100ML/HR PER MD ORDERS.
--- NOTE | 2020-04-08 14:10 | NUR ---
NOTIFIED PT PB 194/64. NEW ORDERS RECEIVED AND CARRIED OUT SEE EMAR FOR ORDERS.
[2020-04-08 15:26] VITALS: BP 180/79
--- NOTE | 2020-04-08 15:26 | NUR ---
Discharge Instructions See e-MAR for any mediations given with this visit. Patient education given on disease process. Patient verbalized understanding. Previous labs reviewed. Patient discharged in stable condition with after care instructions and follow up appointment. PT WILL RETURN TO CLINIC TOMORROW FOR F/U AND EVAL WITH MD DAVIDSON. MED REC DONE BY GELA INIGUEZ. PUT WAS ADVISED TO HOLD METFORMIN DUE TO CREAT 1.69 ON 04/01. PT ALSO ADVISED TO TAKE HER CLONIDINE PO 0.1MG PRESCRIBED TONIGHT AND TO TAKE HER CARDURA 40MG IN AM PRESCRIBED. IV IS SECURED IN PLACE IN THE 22G WITH CURO CAP COVERING PORT. LABS ARE PENDING AND WILL REVIEW LABS WITH PT TOMORROW AT MD APPOINTMENT. PT VERBALIZED UNDERSTANDING AND DEPARTED IN STABLE CONDITION USING WALKER. NOTE ROCEPHIN IV [id number] ADMIN BY DEL INIGUEZ CLONIDINE PO ADMIN BY LACEY INIGUEZ
[2020-04-08 15:53] LABS: Basophils # (auto) 0 10 ^3/uL (0-0.2); Basophils % (auto) 0.5 % (0.0-2.0); Eosinophils # (auto) 0.2 10 ^3/uL (0-0.8); Eosinophils % (auto) 2.9 % (0.0-7.0); Hematocrit 38.4 % (36.0-46.0); Hemoglobin 12.6 g/dL (12.2-16.2); Lymphocytes # (auto) 1.2 10 ^3/uL (0.4-5.4); Lymphocytes % (auto) 16.2 % (10.0-50.0); Mean Corpuscular Hemoglobin 31.4 pg (28.0-32.0); Mean Corpuscular Hgb Conc. 32.8 g/dL (32.0-36.0); Mean Corpuscular Volume 95.7 fL (80.0-100.0); Monocytes # (auto) 0.5 10 ^3/uL (0-1.3); Monocytes % (auto) 6.9 % (0.0-12.0); Neutrophils # (auto) 5.5 10 ^3/uL (1.6-8.6); Neutrophils % (auto) 73.5 % (37.0-80.0); Platelet Count (auto) 272 10^3/uL (140-450); Red Blood Cells 4.01 10^6/uL (4.0-5.20); Red Cell Distribution Width 13.9 % (11.8-14.3); White Blood Cell 7.5 10^3/uL (4.4-10.8)
[2020-04-08 16:09] LABS: Potassium 3.9 mmol/L (3.5-5.1)
== END | disposition home or self-care (01) ==
LOC: CHF HDHVI 13:22
PROVIDERS: ATTEND Internal Medicine Cardiovascular Disease
DX: N39.0 Urinary tract infection, site not specified (principal); I10 Essential (primary) hypertension; K90.9 Intestinal malabsorption, unspecified; E87.6 Hypokalemia; E78.5 Hyperlipidemia, unspecified; E03.9 Hypothyroidism, unspecified; E78.00 Pure hypercholesterolemia, unspecified; E11.40 Type 2 diabetes mellitus with diabetic neuropathy, unspecified; M19.90 Unspecified osteoarthritis, unspecified site; Z79.899 Other long term (current) drug therapy
CPT/HCPCS: 36415; 82306; 82565; 83036; 84132; 84520; 85025; 96365; G0463; J0696

== ENCOUNTER → 2020-04-09 | Outpatient (CLI) | payer MEDICARE, MEDICAID ==
[~2020-04-09] VITALS: Ht 30.5 cm; Wt 0.5 kg
[~2020-04-09] MED LIST changes: -cloNIDine HCL 0.1 MG TAB ONE; -cloNIDine HCL 0.1 MG TAB PO ONE
[2020-04-09 12:57] VITALS: BP 187/76
--- NOTE | 2020-04-09 12:57 | NUR ---
CHF PT ARRIVED TO THE CHF CLINIC FOR DAY 3 OF 3 ROCEPHIN ANTIBIOTICS IV PER MD ORDERS. A/OX4. PT AMBULATORY WITH WALKER. 22 G IV SECURE AND IN PLACE DATED 04/08/20 FLUSHES EASILY, NO SIGNS ON INFILTRATION.
--- NOTE | 2020-04-09 13:09 | NUR ---
ROCEPHIN IV STARTED @ 100ML/HR PER MD ORDERS.
[2020-04-09 15:24] VITALS: BP 192/74
--- NOTE | 2020-04-09 15:24 | NUR ---
Discharge Instructions See e-MAR for any mediations given with this visit. Patient education given on disease process. Patient verbalized understanding. Previous labs reviewed. Patient discharged in stable condition with after care instructions. REPORT GIVEN TO DEL RN AND PT ESCORTED TO BACK OFFICE FOR MED REC F/U AND EVAL WITH MD DAVIDSON. NOTE ROCEPHIN IV [id number]
== END | disposition home or self-care (01) ==
LOC: CHF HDHVI 12:59
PROVIDERS: ATTEND Internal Medicine Cardiovascular Disease
DX: N39.0 Urinary tract infection, site not specified (principal); R53.83 Other fatigue; I10 Essential (primary) hypertension; E78.5 Hyperlipidemia, unspecified; E78.00 Pure hypercholesterolemia, unspecified; E03.9 Hypothyroidism, unspecified; E11.40 Type 2 diabetes mellitus with diabetic neuropathy, unspecified; M19.90 Unspecified osteoarthritis, unspecified site; Z79.899 Other long term (current) drug therapy
CPT/HCPCS: 96365; G0463; J0696

== ENCOUNTER → 2020-04-16 | Outpatient (CLI) | payer MEDICARE, MEDICAID ==
[~2020-04-16] MED LIST changes: -cefTRIAXone 1GM/50ML D5W 100 ML IV ONE; -cefTRIAXone SOD 1,000 MG VL ONE
[2020-04-16 16:02] LABS: Urine Blood Negative /uL (Negative); Urine Specific Gravity 1.012 (1.001-1.035)
== END | disposition home or self-care (01) ==
LOC: LAB 12:57
PROVIDERS: ATTEND Internal Medicine Cardiovascular Disease
DX: N39.0 Urinary tract infection, site not specified (principal)
CPT/HCPCS: 81003; 87086

== ENCOUNTER → 2020-04-18 | Outpatient (CLI) | payer MEDICARE, MEDICAID ==
[~2020-04-18] MED LIST changes: -ASP81EC PO; +ASPI-394 PO; +GLIM-5 PO; -GLIM1TAB3 PO
--- NOTE | 2020-04-18 11:20 | NUR ---
PATIENT IN CLINIC FOR MED REC, PATIENT STOPPED TAKING PROCARDIA XL 60MG DAILY BECAUSE SHE SAID SHE FELT FUZZY IN HER HEAD. PATIENT DIRECTED TO STOP CLONIDINE BY GEETHA MAGANA PATIENT WAS HAVING A TOPICAL REACTION TO THE MEDICATION. DR DAVIDSON INFORMED OF PATIENT MEDICATION ISSUES AND PATIENT DIRECTED TO TAKE 1/2 PROCARDIA TAB DAILY AND CONTINUE TO DISCONTINUE CLONIDINE PATCH. PATIENT EDUCATED ON MED CHANGES, PT VERBALIZED UNDERSTANDING.
== END | disposition home or self-care (01) ==
LOC: CHF HDHVI 11:09
PROVIDERS: ATTEND Internal Medicine Cardiovascular Disease
DX: I10 Essential (primary) hypertension (principal)
CPT/HCPCS: G0463

== ENCOUNTER → 2020-05-08 | Outpatient (CLI) | payer MEDICARE, MEDICAID ==
[~2020-05-08] MED LIST changes: +ASP81EC PO; -ASPI-394 PO; -GLIM-5 PO; +GLIM1TAB3 PO
[2020-05-08 15:09] LABS: Urine Bacteria FEW /hpf (None Seen); Urine Blood Negative /uL (Negative); Urine Hyaline Cast FEW /lpf (0 - 2); Urine Specific Gravity 1.013 (1.001-1.035); Urine WBC 1 /hpf (0 - 5)
== END | disposition home or self-care (01) ==
LOC: LAB 14:20
PROVIDERS: ATTEND Internal Medicine
DX: N39.0 Urinary tract infection, site not specified (principal)
CPT/HCPCS: 81001; 87086

== ENCOUNTER → 2020-06-16 | Outpatient (CLI) | payer MEDICARE ==
[~2020-06-16] MED LIST changes: -ASP81EC PO; +ASPI-394 PO
[2020-06-16 13:35] LABS: Urine Blood Negative /uL (Negative); Urine Specific Gravity 1.014 (1.001-1.035)
== END | disposition home or self-care (01) ==
LOC: LAB 13:11
PROVIDERS: ATTEND Internal Medicine Cardiovascular Disease
DX: N39.0 Urinary tract infection, site not specified (principal)
CPT/HCPCS: 81003

== ENCOUNTER → 2020-08-11 | Outpatient (CLI) | payer MEDICARE ==
[~2020-08-11] MED LIST changes: +GLIM-5 PO; -GLIM1TAB3 PO
[2020-08-11 16:33] LABS: Urine Blood Negative /uL (Negative); Urine Specific Gravity 1.012 (1.001-1.035)
== END | disposition home or self-care (01) ==
LOC: LAB 15:45
PROVIDERS: ATTEND Internal Medicine Cardiovascular Disease
DX: N39.0 Urinary tract infection, site not specified (principal)
CPT/HCPCS: 81003; 87086

== ENCOUNTER → 2020-10-24 | Outpatient (CLI) | payer MEDICARE, MEDICAID ==
[2020-10-24 12:07] LABS: Basophils # (auto) 0 10 ^3/uL (0-0.2); Basophils % (auto) 0.5 % (0.0-2.0); Eosinophils # (auto) 0.2 10 ^3/uL (0-0.8); Eosinophils % (auto) 3.2 % (0.0-7.0); Hematocrit 38.6 % (36.0-46.0); Hemoglobin 12.6 g/dL (12.2-16.2); Lymphocytes # (auto) 1.8 10 ^3/uL (0.4-5.4); Lymphocytes % (auto) 24.2 % (10.0-50.0); Mean Corpuscular Hemoglobin 31.4 pg (28.0-32.0); Mean Corpuscular Hgb Conc. 32.8 g/dL (32.0-36.0); Mean Corpuscular Volume 95.8 fL (80.0-100.0); Monocytes # (auto) 0.6 10 ^3/uL (0-1.3); Monocytes % (auto) 7.7 % (0.0-12.0); Neutrophils # (auto) 4.8 10 ^3/uL (1.6-8.6); Neutrophils % (auto) 64.4 % (37.0-80.0); Platelet Count (auto) 298 10^3/uL (140-450); Red Blood Cells 4.02 10^6/uL (4.0-5.20); Red Cell Distribution Width 14.3 % (11.8-14.3); White Blood Cell 7.4 10^3/uL (4.4-10.8)
[2020-10-24 12:10] LABS: Urine Blood TRACE /uL (Negative); Urine Specific Gravity 1.014 (1.001-1.035)
[2020-10-24 12:28] LABS: Chloride 111 mmol/L (98-107); Potassium 4.6 mmol/L (3.5-5.1); Sodium 139 mmol/L (136-145)
[2020-10-24 12:38] LABS: Free T4 (Free Thyroxine) 0.97 ng/dL (0.89-1.76)
[2020-10-24 12:51] LABS: Alanine Aminotransferase 27 U/L (13-56); Albumin 3.8 g/dL (3.4-5.0); Alkaline Phosphatase 77 U/L (45-117); Anion Gap 6 (5-15); Aspartate Aminotransferase 19 U/L (15-37); BUN/Creatinine Ratio 25.5; Bilirubin, Direct < 0.1 mg/dL (0-0.2); Bilirubin, Total 0.4 mg/dL (0.2-1.0); Blood Urea Nitrogen 41 mg/dL (7-18); Calcium 9.1 mg/dL (8.5-10.1); Carbon Dioxide 22 mmol/L (21-32); Cholesterol 213 mg/dL (< 200); GFR African American 40 mL/min; GFR Non-African American 33 mL/min; Glucose 142 mg/dL (74-106); HDL Cholesterol 84 mg/dL (40-59); LDL Cholesterol 110 mg/dL (< 100); Total Protein 8.1 g/dL (6.4-8.2); Triglycerides 119 mg/dL (< 150)
== END | disposition home or self-care (01) ==
LOC: LAB 10:12
PROVIDERS: ATTEND Internal Medicine Cardiovascular Disease
DX: D51.3 Other dietary vitamin B12 deficiency anemia (principal); D64.9 Anemia, unspecified; E55.9 Vitamin D deficiency, unspecified; I10 Essential (primary) hypertension; R30.0 Dysuria; R00.2 Palpitations; R53.1 Weakness; E11.9 Type 2 diabetes mellitus without complications
CPT/HCPCS: 36415; 80048; 80061; 80076; 81003; 82306; 82607; 83036; 84439; 84443; 85025; 87086; 87088; 87186

== ENCOUNTER → 2020-10-28 | Outpatient (CLI) | payer MEDICARE, MEDICAID ==
[~2020-10-28] MED LIST changes: +cefTRIAXone 1GM/50ML D5W 50 ML IV ONE; +cefTRIAXone SOD 1,000 MG VL ONE
[2020-10-28 11:26] VITALS: BP 236/92
[2020-10-28 12:15] VITALS: BP 231/87
== END | disposition home or self-care (01) ==
LOC: CHF HDHVI 11:36
PROVIDERS: ATTEND Internal Medicine Cardiovascular Disease
DX: N39.0 Urinary tract infection, site not specified (principal); R30.0 Dysuria; I10 Essential (primary) hypertension; E11.9 Type 2 diabetes mellitus without complications
CPT/HCPCS: 96374; G0463; J0696

== ENCOUNTER → 2020-10-29 | Outpatient (CLI) | payer MEDICARE, MEDICAID ==
[2020-10-29 11:28] VITALS: BP 193/93
--- NOTE | 2020-10-29 11:28 | NUR ---
CLINIC PT ARRIVED TO THE CHF CLINIC FOR DAY 2 OF 3 IV ANTIBIOTICS PER MD ORDERS, A/OX4, AMBULATORY, BREATHING IS EVEN AND UNLABORED.
[2020-10-29 11:50] VITALS: BP 215/97
--- NOTE | 2020-10-29 11:50 | NUR ---
Discharge Instructions See e-MAR for any mediations given with this visit. Patient education given on disease process. Patient verbalized understanding. Previous labs reviewed. Patient discharged in stable condition with after care instructions and follow up appointment TOMORROW. NOTE MELISSA MATTHEWS ADMIN BY LACEY INIGUEZ
== END | disposition home or self-care (01) ==
LOC: CHF HDHVI 11:36
PROVIDERS: ATTEND Internal Medicine Cardiovascular Disease
DX: N39.0 Urinary tract infection, site not specified (principal); R30.0 Dysuria; I10 Essential (primary) hypertension; E11.9 Type 2 diabetes mellitus without complications
CPT/HCPCS: 96374; G0463; J0696

== ENCOUNTER → 2020-10-30 | Outpatient (CLI) | payer MEDICARE, MEDICAID ==
[2020-10-30 11:30] VITALS: BP 224/96
--- NOTE | 2020-10-30 11:30 | NUR ---
CLINIC PT ARRIVED TO THE CLINIC FOR DAY 3 OF 3 IV ANTIBIOTICS PER MD ORDERS, A/OX4, AMBULATORY, BREATHING IS EVEN AND UNLABORED.
[2020-10-30 11:53] VITALS: BP 221/84
--- NOTE | 2020-10-30 11:53 | NUR ---
Discharge Instructions See e-MAR for any mediations given with this visit. Patient education given on disease process. Patient verbalized understanding. Previous labs reviewed. Patient discharged in stable condition with after care instructions and follow up appointment. NOTE MELISSA MATTHEWS ADMIN BY LACEY INIGUEZ
== END | disposition home or self-care (01) ==
LOC: CHF HDHVI 11:27
PROVIDERS: ATTEND Internal Medicine Cardiovascular Disease
DX: N39.0 Urinary tract infection, site not specified (principal); R30.0 Dysuria; I10 Essential (primary) hypertension; E11.9 Type 2 diabetes mellitus without complications
CPT/HCPCS: 96374; G0463; J0696

== ENCOUNTER → 2020-12-12 | Outpatient (CLI) | payer MEDICARE, MEDICAID ==
[~2020-12-12] MED LIST changes: -cefTRIAXone 1GM/50ML D5W 50 ML IV ONE; -cefTRIAXone SOD 1,000 MG VL ONE
== END | disposition home or self-care (01) ==
LOC: LAB 11:38
PROVIDERS: ATTEND Internal Medicine Cardiovascular Disease
DX: R94.4 Abnormal results of kidney function studies (principal)
CPT/HCPCS: 36415; 82565

== ENCOUNTER → 2020-12-15 | Outpatient (CLI) | payer MEDICARE, MEDICAID ==
[~2020-12-15] VITALS: Ht 30.5 cm; Wt 0.5 kg
[~2020-12-15] MED LIST changes: +IOHEXOL 350 MG/ML 100ML IJ ONE; +SODIUM CHLORIDE 0.9% 500 ML IV ONE; +SODIUM CHLORIDE 0.9% 500 ML IV SCH; +cloNIDine HCL 0.1 MG TAB ONE; +cloNIDine HCL 0.1 MG TAB PO ONE
[2020-12-15 10:05] VITALS: BP 229/108
[2020-12-15 11:39] LABS: Urine Blood TRACE /uL (Negative); Urine Specific Gravity 1.009 (1.001-1.035)
[2020-12-15 13:00] VITALS: BP 210/76
== END | disposition home or self-care (01) ==
LOC: Rad HDHVI 09:44
PROVIDERS: ATTEND Internal Medicine Cardiovascular Disease
DX: N39.0 Urinary tract infection, site not specified (principal); R53.83 Other fatigue; R06.02 Shortness of breath; I10 Essential (primary) hypertension; E11.9 Type 2 diabetes mellitus without complications
CPT/HCPCS: 81003; 87086; 96360; 96361; G0463; J7040; Q9967; 96366

== ENCOUNTER → 2020-12-22 | Outpatient (CLI) | payer MEDICARE, MEDICAID ==
[~2020-12-22] VITALS: Ht 30.5 cm; Wt 0.5 kg
[~2020-12-22] MED LIST changes: -IOHEXOL 350 MG/ML 100ML IJ ONE; -SODIUM CHLORIDE 0.9% 500 ML IV ONE; -SODIUM CHLORIDE 0.9% 500 ML IV SCH
[2020-12-22 14:40] VITALS: BP 239/106
[2020-12-22 15:23] VITALS: BP 236/106
[2020-12-22 15:30] VITALS: BP 233/94
[2020-12-22 15:41] LABS: Magnesium 1.7 mg/dL (1.6-2.6); Potassium 4.8 mmol/L (3.5-5.1)
[2020-12-22 15:55] VITALS: BP 217/79
[2020-12-22 16:00] VITALS: BP 217/79
== END | disposition home or self-care (01) ==
LOC: CHF HDHVI 15:03
PROVIDERS: ATTEND Internal Medicine Cardiovascular Disease
DX: I10 Essential (primary) hypertension (principal); E83.40 Disorders of magnesium metabolism, unspecified
CPT/HCPCS: 36415; 80048; 83735; G0463

== ENCOUNTER → 2020-12-26 | Outpatient (CLI) | payer MEDICARE, MEDICAID ==
[~2020-12-26] MED LIST changes: -cloNIDine HCL 0.1 MG TAB ONE; -cloNIDine HCL 0.1 MG TAB PO ONE
== END | disposition home or self-care (01) ==
LOC: CHF HDHVI 11:15
PROVIDERS: ATTEND Internal Medicine Cardiovascular Disease
DX: J98.11 Atelectasis (principal); I70.0 Atherosclerosis of aorta; M41.86 Other forms of scoliosis, lumbar region; R06.02 Shortness of breath
CPT/HCPCS: 71046

== ENCOUNTER → 2021-12-28 | Outpatient (CLI) | payer MEDICARE, MEDICAID ==
[2021-12-28 11:30] LABS: Basophils # (auto) 0 10 ^3/uL (0-0.2); Basophils % (auto) 0.6 % (0.0-2.0); Eosinophils # (auto) 0.2 10 ^3/uL (0-0.8); Eosinophils % (auto) 2.4 % (0.0-7.0); Hematocrit 35.1 % (36.0-46.0); Hemoglobin 11.6 g/dL (12.2-16.2); Lymphocytes # (auto) 1.2 10 ^3/uL (0.4-5.4); Lymphocytes % (auto) 16.6 % (10.0-50.0); Mean Corpuscular Hemoglobin 30.6 pg (28.0-32.0); Mean Corpuscular Hgb Conc. 33.2 g/dL (32.0-36.0); Mean Corpuscular Volume 92.2 fL (80.0-100.0); Monocytes # (auto) 0.5 10 ^3/uL (0-1.3); Monocytes % (auto) 6.8 % (0.0-12.0); Neutrophils # (auto) 5.5 10 ^3/uL (1.6-8.6); Neutrophils % (auto) 73.6 % (37.0-80.0); Nucleated Red Blood Cells % 0.1 %; Red Cell Distribution Width 14.1 % (11.8-14.3); White Blood Cell 7.5 10^3/uL (4.4-10.8)
[2021-12-28 11:45] LABS: Urine Blood Negative /uL (Negative); Urine Specific Gravity 1.012 (1.001-1.035)
[2021-12-28 12:18] LABS: Albumin 3.6 g/dL (3.4-5.0); Anion Gap 5 (5-15); Calcium 9.5 mg/dL (8.5-10.1); Carbon Dioxide 19 mmol/L (21-32); Chloride 114 mmol/L (98-107); Potassium 4.9 mmol/L (3.5-5.1); Sodium 138 mmol/L (136-145)
[2021-12-28 12:25] LABS: Alanine Aminotransferase 21 U/L (13-56); Alkaline Phosphatase 78 U/L (45-117); Aspartate Aminotransferase 14 U/L (15-37); BUN/Creatinine Ratio 29.3; Bilirubin, Direct < 0.1 mg/dL (0-0.2); Bilirubin, Total 0.2 mg/dL (0.2-1.0); Blood Urea Nitrogen 60 mg/dL (7-18); Cholesterol 200 mg/dL (< 200); GFR African American 30 mL/min; GFR Non-African American 25 mL/min; Glucose 144 mg/dL (74-106); HDL Cholesterol 90 mg/dL (40-59); LDL Cholesterol 88 mg/dL (< 100); Triglycerides 105 mg/dL (< 150)
== END | disposition home or self-care (01) ==
LOC: LAB 10:01
PROVIDERS: ATTEND Internal Medicine Cardiovascular Disease
DX: E11.9 Type 2 diabetes mellitus without complications (principal); D51.3 Other dietary vitamin B12 deficiency anemia; D64.9 Anemia, unspecified; E55.9 Vitamin D deficiency, unspecified; R00.2 Palpitations; R53.1 Weakness; R30.0 Dysuria; I10 Essential (primary) hypertension
CPT/HCPCS: 36415; 80048; 80061; 80076; 81003; 82306; 83036; 84443; 85025

== ENCOUNTER → 2022-06-07 | Outpatient (CLI) | payer MEDICARE, MEDICAID ==
[2022-06-07 10:21] VITALS: BP 171/77
[2022-06-07 10:58] VITALS: BP 165/74
[2022-06-07 12:16] LABS: Basophils # (auto) 0 10 ^3/uL (0-0.2); Basophils % (auto) 0.6 % (0.0-2.0); Eosinophils # (auto) 0.2 10 ^3/uL (0-0.8); Eosinophils % (auto) 2.6 % (0.0-7.0); Lymphocytes # (auto) 1.2 10 ^3/uL (0.4-5.4); Lymphocytes % (auto) 17.4 % (10.0-50.0); Mean Corpuscular Hgb Conc. 32.5 g/dL (32.0-36.0); Mean Corpuscular Volume 92.4 fL (80.0-100.0); Monocytes # (auto) 0.5 10 ^3/uL (0-1.3); Monocytes % (auto) 7.2 % (0.0-12.0); Neutrophils # (auto) 5.1 10 ^3/uL (1.6-8.6); Neutrophils % (auto) 72.2 % (37.0-80.0); Red Blood Cells 3.68 10^6/uL (4.0-5.20)
[2022-06-07 12:21] LABS: Potassium 4.2 mmol/L (3.5-5.1)
[2022-06-07 12:27] LABS: BUN/Creatinine Ratio 22.3; Calcium 8.9 mg/dL (8.5-10.1)
[2022-06-07 12:50] LABS: INR 0.97 (0.9-1.15); Partial Thromboplastin Time 34.4 sec (24.6-33.4)
== END | disposition home or self-care (01) ==
LOC: Rad HDHVI 10:07
PROVIDERS: ATTEND Internal Medicine Cardiovascular Disease
DX: Z01.818 Encounter for other preprocedural examination (principal); I10 Essential (primary) hypertension; R42 Dizziness and giddiness; R06.02 Shortness of breath
CPT/HCPCS: 36415; 71046; 80048; 85025; 85610; 85730; 93005; G0463

== ENCOUNTER → 2022-09-27 | Outpatient (CLI) | payer MEDICARE, MEDICAID ==
[2022-09-27 16:18] LABS: Urine Blood TRACE /uL (Negative); Urine Specific Gravity 1.011 (1.001-1.035)
== END | disposition home or self-care (01) ==
LOC: CHF HDHVI 12:29
PROVIDERS: ATTEND Internal Medicine Cardiovascular Disease
DX: N39.0 Urinary tract infection, site not specified (principal)
CPT/HCPCS: 81003; 87086

== ENCOUNTER → 2022-11-03 | Outpatient (CLI) | payer MEDICARE, MEDICAID | END | disposition home or self-care (01) | LOC: Rad HDHVI 08:13 | PROVIDERS: ATTEND Internal Medicine Cardiovascular Disease | DX: I65.23 Occlusion and stenosis of bilateral carotid arteries (principal); I10 Essential (primary) hypertension; E78.00 Pure hypercholesterolemia, unspecified | CPT/HCPCS: 93880 ==

== ENCOUNTER → 2022-11-09 | Outpatient (CLI) | payer MEDICARE, MEDICAID | END | disposition home or self-care (01) | LOC: Rad HDHVI 14:00 | PROVIDERS: ATTEND Internal Medicine Cardiovascular Disease | DX: I08.0 Rheumatic disorders of both mitral and aortic valves (principal); I10 Essential (primary) hypertension; R06.02 Shortness of breath | CPT/HCPCS: 93306 ==

== ENCOUNTER → 2022-12-06 | Outpatient (CLI) | payer MEDICARE, MEDICAID ==
[~2022-12-06] MED LIST changes: +ATOR20TA50 PO; +CHOL20007 PO; +CLON0.1T PO; +CLOP75TA28 PO; +LEVO50TA7 PO; +NATE120T5 PO; +NIFE90TA49 PO; +PATI1POW PO; +SACU1TAB4 PO
[2022-12-06 10:46] VITALS: BP 180/79
[2022-12-06 11:09] VITALS: BP 188/82
[2022-12-06 11:41] LABS: Basophils # (auto) 0 10 ^3/uL (0-0.2); Basophils % (auto) 0.2 % (0.0-2.0); Eosinophils # (auto) 0.2 10 ^3/uL (0-0.8); Eosinophils % (auto) 1.5 % (0.0-7.0); Hematocrit 35.1 % (36.0-46.0); Hemoglobin 11.5 g/dL (12.2-16.2); Lymphocytes # (auto) 0.9 10 ^3/uL (0.4-5.4); Lymphocytes % (auto) 8.8 % (10.0-50.0); Mean Corpuscular Hemoglobin 29.7 pg (28.0-32.0); Mean Corpuscular Hgb Conc. 32.8 g/dL (32.0-36.0); Mean Corpuscular Volume 90.6 fL (80.0-100.0); Monocytes # (auto) 0.5 10 ^3/uL (0-1.3); Monocytes % (auto) 4.6 % (0.0-12.0); Neutrophils # (auto) 8.6 10 ^3/uL (1.6-8.6); Neutrophils % (auto) 84.9 % (37.0-80.0); Nucleated Red Blood Cells % 0.1 %; Red Blood Cells 3.87 10^6/uL (4.0-5.20); Red Cell Distribution Width 14.1 % (11.8-14.3); White Blood Cell 10.1 10^3/uL (4.4-10.8)
[2022-12-06 11:46] LABS: Calcium 7.8 mg/dL (8.5-10.1); Potassium 3.4 mmol/L (3.5-5.1)
[2022-12-06 12:00] LABS: BUN/Creatinine Ratio 14.5
[2022-12-06 12:02] LABS: INR 1.01 (0.9-1.15); Partial Thromboplastin Time 32.3 sec (24.6-33.4)
== END | disposition home or self-care (01) ==
LOC: Rad HDHVI 10:21
PROVIDERS: ATTEND Internal Medicine Cardiovascular Disease
DX: R06.02 Shortness of breath (principal)
CPT/HCPCS: 36415; 71046; 80048; 85025; 85610; 85730; 93005; G0463

== ENCOUNTER → 2022-12-08 | Outpatient (CLI) | payer MEDICARE, MEDICAID ==
[~2022-12-08] VITALS: Ht 170.2 cm; Wt 70.8 kg
[~2022-12-08] MED LIST changes: +ASPI-543 PO; -ATEN50TA PO; -BENA20TA14 PO; -DOXA2TAB PO; -ERGO2000 PO; -METF-370 PO; -NATE60TA5 PO
== END | disposition home or self-care (01) ==
LOC: Rad HDHVI 13:37
PROVIDERS: ATTEND Internal Medicine Cardiovascular Disease
DX: I25.10 Atherosclerotic heart disease of native coronary artery without angina pectoris (principal); I10 Essential (primary) hypertension; E78.5 Hyperlipidemia, unspecified; E11.9 Type 2 diabetes mellitus without complications; I63.9 Cerebral infarction, unspecified; R06.02 Shortness of breath; R00.2 Palpitations; Z86.73 Personal history of transient ischemic attack (TIA), and cerebral infarction without residual deficits
CPT/HCPCS: 78472; 96374; 96375; A9505

== ENCOUNTER 2022-12-09 06:54 | Day surgery (SDC) | payer MEDICARE, MEDICAID ==
[~2022-12-09] VITALS: Ht 170.2 cm; Wt 70.8 kg
[~2022-12-09 06:54] MED LIST changes: -ASPI-543 PO
[2022-12-09] MEDS ORDERED: cloNIDine HCL 0.1 MG TAB PO ONE ×2 (08:45→11:00)
[2022-12-09] MEDS ORDERED: CLOP75TA28 PO (09:27)
[2022-12-09] MEDS ORDERED: ASPI-543 PO (09:27)
[2022-12-09] MEDS ORDERED: LIDOCAINE 2%HCL (LOCAL ANESTH.) INJ 20ML MDV ONE (10:25)
[2022-12-09] MEDS ORDERED: IODIXANOL 320MG/ML 100ML BTL IV ONE (10:25)
[2022-12-09] MEDS ORDERED: fentaNYL CITRATE 100 MCG/2 ML VL ONE (10:26)
[2022-12-09] MEDS ORDERED: MIDAZOLAM HCL 2MG/2ML 2ml VIAL (1mg/ml) ONE (10:27)
[2022-12-09] MEDS ORDERED: GLYCOPYRROLATE 0.2 MG/ML 1ML VIAL ONE ×2 (10:30→11:01)
[2022-12-09] MEDS ORDERED: ANGIOMAX 250 MG VIAL IV ONE (10:31)
[2022-12-09] MEDS ORDERED: SODIUM CHL 0.9% 0 ML ONE (10:32)
[2022-12-09] MEDS ORDERED: IOHEXOL 350 MG/ML 100ML IJ ONE (10:50)
[2022-12-09] MEDS ORDERED: ENALAPRILAT 1.25 MG/ML-1ML VIAL IV ONE (10:58)
== END 2022-12-09 13:40 | disposition home or self-care (01) ==
LOC: CATH 06:54
PROVIDERS: ATTEND Internal Medicine Cardiovascular Disease
DX: I70.1 Atherosclerosis of renal artery (principal); I65.23 Occlusion and stenosis of bilateral carotid arteries; I10 Essential (primary) hypertension; Z79.899 Other long term (current) drug therapy; Z20.822 Contact with and (suspected) exposure to COVID-19; E78.5 Hyperlipidemia, unspecified
CPT/HCPCS: 36223; 36224; 36252; C1760; C1894; C9803; J1644; J7030; Q9967; U0003; 99152; 99153; J2250

== ENCOUNTER 2022-12-18 11:42 | Inpatient (IN) | payer MEDICARE, MEDICAID ==
[~2022-12-18] VITALS: Ht 162.6 cm; Wt 74.6 kg
[2022-12-18 13:41] LABS: Basophils # (auto) 0 10 ^3/uL (0-0.2); Basophils % (auto) 0.5 % (0.0-2.0); Eosinophils # (auto) 0.1 10 ^3/uL (0-0.8); Eosinophils % (auto) 1.4 % (0.0-7.0); Hematocrit 33.3 % (36.0-46.0); Lymphocytes # (auto) 0.8 10 ^3/uL (0.4-5.4); Lymphocytes % (auto) 9.8 % (10.0-50.0); Mean Corpuscular Hemoglobin 30.1 pg (28.0-32.0); Mean Corpuscular Hgb Conc. 33.1 g/dL (32.0-36.0); Monocytes # (auto) 0.5 10 ^3/uL (0-1.3); Neutrophils # (auto) 6.3 10 ^3/uL (1.6-8.6); Neutrophils % (auto) 82.3 % (37.0-80.0); Nucleated Red Blood Cells % 0.1 %; Red Blood Cells 3.66 10^6/uL (4.0-5.20); Red Cell Distribution Width 14.3 % (11.8-14.3); White Blood Cell 7.6 10^3/uL (4.4-10.8)
[2022-12-18 13:56] LABS: Albumin 3.2 g/dL (3.4-5.0); BUN/Creatinine Ratio 12.4; Calcium 7.1 mg/dL (8.5-10.1); Magnesium 1.2 mg/dL (1.6-2.6); Potassium 3.2 mmol/L (3.5-5.1)
[2022-12-18 14:00] LABS: Bilirubin, Total 0.2 mg/dL (0.2-1.0); Total Protein 7.4 g/dL (6.4-8.2)
[2022-12-18] MEDS ORDERED: CALCIUM W/VIT D (600MG/400IU) TAB PO ONE (14:15)
[2022-12-18] MEDS ORDERED: MAGNESIUM SULFATE 1GM/100ML 100 ML IV ONE (14:15)
[2022-12-18] MEDS ORDERED: ASPirin 325 MG TAB PO ONE (14:15)
[2022-12-18] MEDS ORDERED: POTASSIUM EFFERVESENT TAB 25 MEQ PO ONE (14:15)
[2022-12-18] MEDS ORDERED: DOCUSATE SOD 100 MG CAP PO PRN (17:15)
[2022-12-18] MEDS ORDERED: HYDROcodone-ACET 5/325MG TAB PO PRN (17:15)
[2022-12-18] MEDS ORDERED: NITROGLYCERIN 0.4 MG SL TAB SL PRN (17:15)
[2022-12-18] MEDS ORDERED: MORPHINE SULFATE INJ 2 MG/ml SYRG IV PRN (17:15)
[2022-12-18 17:19] LABS: Urine Bacteria MANY /hpf (None Seen); Urine Blood TRACE /uL (Negative); Urine Hyaline Cast FEW /lpf (0 - 2); Urine Mucus FEW (None Seen); Urine Specific Gravity 1.009 (1.001-1.035); Urine WBC 9 /hpf (0 - 5)
[2022-12-18] MEDS ORDERED: DEXTROSE (50%) 50ML SYRG IV PRN (17:30)
[2022-12-18] MEDS: SODIUM CHLORIDE 0.9% 1,000 ML IV SCH (18:16)
[2022-12-18 21:16] LABS: BUN/Creatinine Ratio 12.5; Calcium 7.1 mg/dL (8.5-10.1); Potassium 3.7 mmol/L (3.5-5.1)
[2022-12-18] MEDS ORDERED: ACCU-CHEK COMFORT CURVE STRIP VI SCH (22:00)
[2022-12-18] MEDS ORDERED: InsuLIN REG 1unit/0.01ml Soln (100units/ml) SC SCH (22:00)
[2022-12-18] MEDS ORDERED: HEPARIN SODIUM (PORCINE) 5000 UNITS/ML 1ML VIAL SC ONE (22:45)
[2022-12-18] MEDS ORDERED: amLODIPine BESYLATE 5 MG TAB PO ONE (22:45)
[2022-12-18] MEDS: MAGNESIUM SULFATE 1GM/100ML 100 ML IV SCH (22:50)
[2022-12-18] MEDS: GLIMEPIRIDE 2 MG TAB PO SCH (22:51)
[2022-12-18] MEDS: ENTRESTO PO SCH (22:51)
[2022-12-18] MEDS: NIFEDIPINE 90 MG PO SCH (22:51)
[2022-12-19] MEDS: MAGNESIUM SULFATE 1GM/100ML 100 ML IV SCH ×3 (01:44→03:00)
[2022-12-19] MEDS: hydrALAZINE HCL 20 MG/ML VL IV PRN ×2 (01:53→19:53)
[2022-12-19] MEDS ORDERED: DEXTROSE (50%) 50ML SYRG IV PRN ×2 (04:00→04:15)
[2022-12-19] MEDS ORDERED: SODIUM BICARBONATE 8.4 % INJ 50ML VIAL IV ONE (04:00)
[2022-12-19] MEDS ORDERED: INSULIN LANTUS (GLARGINE) 1 /0.01ml (100units/ml) SC ONE (04:00)
[2022-12-19] MEDS ORDERED: InsuLIN R (HUMAN) 100 UNITS in SODIUM CHL 0.9% 99 ML IV SCH (04:00)
[2022-12-19] MEDS ORDERED: InsuLIN REG 1unit/0.01ml Soln (100units/ml) IV ONE (04:00)
[2022-12-19] MEDS ORDERED: ACCU-CHEK COMFORT CURVE STRIP VI SCH (04:30)
[2022-12-19 06:36] LABS: Basophils # (auto) 0.1 10 ^3/uL (0-0.2); Basophils % (auto) 0.8 % (0.0-2.0); Eosinophils # (auto) 0.2 10 ^3/uL (0-0.8); Eosinophils % (auto) 2.1 % (0.0-7.0); Hematocrit 32.5 % (36.0-46.0); Hemoglobin 10.9 g/dL (12.2-16.2); Lymphocytes % (auto) 13.7 % (10.0-50.0); Mean Corpuscular Hemoglobin 30.2 pg (28.0-32.0); Mean Corpuscular Hgb Conc. 33.4 g/dL (32.0-36.0); Mean Corpuscular Volume 90.3 fL (80.0-100.0); Monocytes # (auto) 0.5 10 ^3/uL (0-1.3); Monocytes % (auto) 6.7 % (0.0-12.0); Neutrophils # (auto) 5.9 10 ^3/uL (1.6-8.6); Neutrophils % (auto) 76.7 % (37.0-80.0); Red Cell Distribution Width 14.6 % (11.8-14.3); White Blood Cell 7.6 10^3/uL (4.4-10.8)
[2022-12-19] MEDS: ACCU-CHEK COMFORT CURVE STRIP VI SCH ×4 (06:43→21:44)
[2022-12-19] MEDS: LEVOTHYROXINE SODIUM 50 MCG TAB PO SCH (06:52)
[2022-12-19 06:54] LABS: Potassium 3.5 mmol/L (3.5-5.1)
[2022-12-19] MEDS: cloNIDine HCL 0.1 MG TAB PO PRN ×2 (06:54→22:04)
[2022-12-19] MEDS: InsuLIN REG 1unit/0.01ml Soln (100units/ml) SC SCH ×4 (06:55→21:53)
[2022-12-19 07:00] LABS: Albumin 3.2 g/dL (3.4-5.0); BUN/Creatinine Ratio 13.1; Bilirubin, Total 0.3 mg/dL (0.2-1.0); Calcium 7.5 mg/dL (8.5-10.1); Total Protein 6.7 g/dL (6.4-8.2)
[2022-12-19] MEDS ORDERED: InsuLIN REG 1unit/0.01ml Soln (100units/ml) SC SCH (07:00)
[2022-12-19] MEDS: GLIMEPIRIDE 2 MG TAB PO SCH ×3 (10:00→21:37)
[2022-12-19] MEDS: CLOPIDOGREL BISULFATE 75 MG TAB PO SCH (10:00)
[2022-12-19] MEDS: ENTRESTO PO SCH ×3 (10:00→21:35)
[2022-12-19] MEDS: NIFEDIPINE 90 MG PO SCH ×3 (10:00→21:35)
[2022-12-19] MEDS: PANTOPRAZOLE 40 MG/10 ML VIAL INJ IV SCH (10:04)
[2022-12-19] MEDS: SODIUM CHLORIDE 0.9% 1,000 ML IV SCH ×3 (10:05→22:35)
[2022-12-19] MEDS: ATORVASTATIN 20 MG TAB PO SCH (10:05)
[2022-12-19] MEDS: HEPARIN SODIUM (PORCINE) 5000 UNITS/ML 1ML VIAL SC SCH ×2 (10:05→21:58)
[2022-12-19] MEDS: amLODIPine BESYLATE 5 MG TAB PO SCH (10:06)
[2022-12-19] MEDS: ASPirin-EC 81 mg tab PO SCH (10:08)
[2022-12-19 17:59] LABS: Creatinine, Urine 56.2 mg/dL (30.0-125.0)
[2022-12-19 18:00] LABS: Protein, Urine 405.8 mg/dL (0.0-11.9)
[2022-12-19] MEDS: ONDANSETRON HCL 4 MG/2 ML VIAL IV PRN (19:52)
[2022-12-20] MEDS: SODIUM CHLORIDE 0.9% 1,000 ML IV SCH ×3 (03:42→21:15)
[2022-12-20] MEDS: hydrALAZINE HCL 20 MG/ML VL IV PRN (03:43)
[2022-12-20] MEDS: ACCU-CHEK COMFORT CURVE STRIP VI SCH ×4 (06:36→22:00)
[2022-12-20] MEDS: LEVOTHYROXINE SODIUM 50 MCG TAB PO SCH (06:41)
[2022-12-20] MEDS: InsuLIN REG 1unit/0.01ml Soln (100units/ml) SC SCH ×4 (06:47→22:00)
[2022-12-20 06:57] LABS: BUN/Creatinine Ratio 11.8; Calcium 8.2 mg/dL (8.5-10.1); Potassium 3.8 mmol/L (3.5-5.1)
[2022-12-20] MEDS: cloNIDine HCL 0.1 MG TAB PO PRN (07:10)
[2022-12-20] MEDS ORDERED: LACTULOSE 20Gm/30ML SOLN PO PRN (07:30)
[2022-12-20] MEDS: ASPirin-EC 81 mg tab PO SCH (07:57)
[2022-12-20] MEDS: CLOPIDOGREL BISULFATE 75 MG TAB PO SCH (07:58)
[2022-12-20] MEDS: amLODIPine BESYLATE 5 MG TAB PO SCH (07:58)
[2022-12-20] MEDS: PANTOPRAZOLE 40 MG/10 ML VIAL INJ IV SCH (07:59)
[2022-12-20] MEDS: HEPARIN SODIUM (PORCINE) 5000 UNITS/ML 1ML VIAL SC SCH ×2 (07:59→22:27)
[2022-12-20] MEDS: ATORVASTATIN 20 MG TAB PO SCH (08:01)
[2022-12-20] MEDS: ENTRESTO PO SCH (08:43)
[2022-12-20] MEDS: NIFEDIPINE 90 MG PO SCH ×2 (08:44→22:00)
[2022-12-20] MEDS: GLIMEPIRIDE 2 MG TAB PO SCH ×2 (08:46→22:00)
[2022-12-20] MEDS ORDERED: cefTRIAXone 1GM/50ML D5W 50 ML IV ONE (09:15)
[2022-12-20] MEDS ORDERED: INSULIN LANTUS (GLARGINE) 1 /0.01ml (100units/ml) SC SCH (10:00)
[2022-12-20] MEDS ORDERED: LACTULOSE 20Gm/30ML SOLN PO ONE (10:30)
[2022-12-20] MEDS ORDERED: FLEET ENEMA(ADULT) 135 ML PR ONE (18:15)
[2022-12-20] MEDS: DOXAZOSIN MESYL 2 MG TAB PO SCH (22:00)
[2022-12-21] MEDS: SODIUM CHLORIDE 0.9% 1,000 ML IV SCH ×3 (04:26→21:15)
[2022-12-21 06:10] LABS: BUN/Creatinine Ratio 11.4; Calcium 8.6 mg/dL (8.5-10.1); Potassium 3.6 mmol/L (3.5-5.1)
[2022-12-21] MEDS: LEVOTHYROXINE SODIUM 50 MCG TAB PO SCH (06:40)
[2022-12-21] MEDS: InsuLIN REG 1unit/0.01ml Soln (100units/ml) SC SCH ×4 (06:40→22:14)
[2022-12-21] MEDS: ACCU-CHEK COMFORT CURVE STRIP VI SCH ×4 (06:41→22:15)
[2022-12-21 08:00] VITALS: BP_SYST 163; BP_SYST 168; BP_DIAS 70; BP_DIAS 72
[2022-12-21] MEDS: PANTOPRAZOLE 40 MG/10 ML VIAL INJ IV SCH (09:39)
[2022-12-21] MEDS: ASPirin-EC 81 mg tab PO SCH (09:39)
[2022-12-21] MEDS: DOXAZOSIN MESYL 2 MG TAB PO SCH ×2 (09:40→22:12)
[2022-12-21] MEDS: amLODIPine BESYLATE 5 MG TAB PO SCH (09:41)
[2022-12-21] MEDS: CLOPIDOGREL BISULFATE 75 MG TAB PO SCH (09:41)
[2022-12-21] MEDS: ATORVASTATIN 20 MG TAB PO SCH (09:42)
[2022-12-21] MEDS: HEPARIN SODIUM (PORCINE) 5000 UNITS/ML 1ML VIAL SC SCH ×2 (09:44→22:13)
[2022-12-21] MEDS: GLIMEPIRIDE 2 MG TAB PO SCH ×2 (09:47→22:11)
[2022-12-21] MEDS: cefTRIAXone 1GM/50ML D5W 50 ML IV SCH (09:55)
[2022-12-21] MEDS: NIFEDIPINE 90 MG PO SCH ×2 (10:00→22:11)
[2022-12-21] MEDS: cloNIDine HCL 0.1 MG TAB PO PRN (12:11)
[2022-12-21 13:00] VITALS: BP 169/62
[2022-12-21 17:00] VITALS: BP 150/88
[2022-12-21 20:00] VITALS: BP 168/70
[2022-12-21 22:00] VITALS: BP 168/68
[2022-12-21] MEDS: LACTULOSE 20Gm/30ML SOLN PO SCH (22:11)
[2022-12-22] VITALS (7 sets, daily range): BP systolic 148–163; BP diastolic 54–73
[2022-12-22] MEDS: SODIUM CHLORIDE 0.9% 1,000 ML IV SCH (06:20)
[2022-12-22] MEDS: LEVOTHYROXINE SODIUM 50 MCG TAB PO SCH (06:25)
[2022-12-22] MEDS: InsuLIN REG 1unit/0.01ml Soln (100units/ml) SC SCH ×4 (06:25→22:28)
[2022-12-22] MEDS: ACCU-CHEK COMFORT CURVE STRIP VI SCH ×4 (06:26→22:29)
[2022-12-22 06:48] LABS: Basophils # (auto) 0 10 ^3/uL (0-0.2); Basophils % (auto) 0.5 % (0.0-2.0); Eosinophils # (auto) 0.2 10 ^3/uL (0-0.8); Eosinophils % (auto) 2.3 % (0.0-7.0); Hematocrit 25.6 % (36.0-46.0); Hemoglobin 8.6 g/dL (12.2-16.2); Lymphocytes # (auto) 0.8 10 ^3/uL (0.4-5.4); Mean Corpuscular Hemoglobin 30.8 pg (28.0-32.0); Mean Corpuscular Hgb Conc. 33.4 g/dL (32.0-36.0); Mean Corpuscular Volume 92.2 fL (80.0-100.0); Monocytes # (auto) 0.6 10 ^3/uL (0-1.3); Monocytes % (auto) 6.3 % (0.0-12.0); Neutrophils % (auto) 82.9 % (37.0-80.0); Red Blood Cells 2.78 10^6/uL (4.0-5.20); Red Cell Distribution Width 14.6 % (11.8-14.3); White Blood Cell 9.6 10^3/uL (4.4-10.8)
[2022-12-22 06:50] LABS: Albumin 2.6 g/dL (3.4-5.0); BUN/Creatinine Ratio 11.7; Bilirubin, Total 0.4 mg/dL (0.2-1.0); Calcium 7.5 mg/dL (8.5-10.1); Total Protein 5.6 g/dL (6.4-8.2)
[2022-12-22] MEDS: ATORVASTATIN 20 MG TAB PO SCH (08:56)
[2022-12-22] MEDS: amLODIPine BESYLATE 5 MG TAB PO SCH (08:57)
[2022-12-22] MEDS: CLOPIDOGREL BISULFATE 75 MG TAB PO SCH (08:57)
[2022-12-22] MEDS: ASPirin-EC 81 mg tab PO SCH (08:58)
[2022-12-22] MEDS: DOXAZOSIN MESYL 2 MG TAB PO SCH ×2 (08:58→21:51)
[2022-12-22] MEDS: PANTOPRAZOLE 40 MG/10 ML VIAL INJ IV SCH (08:58)
[2022-12-22] MEDS: LACTULOSE 20Gm/30ML SOLN PO SCH ×2 (08:58→21:49)
[2022-12-22] MEDS: HEPARIN SODIUM (PORCINE) 5000 UNITS/ML 1ML VIAL SC SCH ×2 (09:02→22:15)
[2022-12-22] MEDS: GLIMEPIRIDE 2 MG TAB PO SCH ×2 (09:03→21:50)
[2022-12-22] MEDS: cefTRIAXone 1GM/50ML D5W 50 ML IV SCH (09:11)
[2022-12-22] MEDS: NIFEDIPINE 90 MG PO SCH (12:13)
[2022-12-22] MEDS: NIFEdipine ER 30 MG TAB PO SCH (13:22)
[2022-12-22] MEDS: hydrALAZINE HCL 25 MG TAB PO SCH ×2 (15:34→21:50)
[2022-12-22] MEDS: hydrALAZINE HCL 20 MG/ML VL IV PRN (16:48)
[2022-12-22] MEDS: cloNIDine HCL 0.1 MG TAB PO PRN (21:49)
[2022-12-22] MEDS: ACETAMINOPHEN 325 MG TAB PO PRN (21:50)
[2022-12-23 05:00] VITALS: BP 113/51
[2022-12-23] MEDS: hydrALAZINE HCL 25 MG TAB PO SCH ×3 (05:24→22:00)
[2022-12-23] MEDS: LEVOTHYROXINE SODIUM 50 MCG TAB PO SCH (05:47)
[2022-12-23] MEDS: InsuLIN REG 1unit/0.01ml Soln (100units/ml) SC SCH ×3 (05:48→22:08)
[2022-12-23] MEDS: ACCU-CHEK COMFORT CURVE STRIP VI SCH ×3 (05:48→22:01)
[2022-12-23 06:33] LABS: Calcium 7.8 mg/dL (8.5-10.1); Potassium 3.8 mmol/L (3.5-5.1)
[2022-12-23 06:35] LABS: BUN/Creatinine Ratio 11.4
[2022-12-23] MEDS: cefTRIAXone 1GM/50ML D5W 50 ML IV SCH (08:44)
[2022-12-23 09:00] VITALS: BP 129/45
[2022-12-23] MEDS: PANTOPRAZOLE 40 MG/10 ML VIAL INJ IV SCH (10:51)
[2022-12-23] MEDS: LACTULOSE 20Gm/30ML SOLN PO SCH ×2 (10:51→21:59)
[2022-12-23] MEDS: GLIMEPIRIDE 2 MG TAB PO SCH ×2 (10:52→21:59)
[2022-12-23] MEDS: DOXAZOSIN MESYL 2 MG TAB PO SCH ×2 (10:52→22:01)
[2022-12-23] MEDS: ATORVASTATIN 20 MG TAB PO SCH (10:53)
[2022-12-23] MEDS: amLODIPine BESYLATE 5 MG TAB PO SCH (10:53)
[2022-12-23] MEDS: CLOPIDOGREL BISULFATE 75 MG TAB PO SCH (10:53)
[2022-12-23] MEDS: ASPirin-EC 81 mg tab PO SCH (10:53)
[2022-12-23] MEDS: HEPARIN SODIUM (PORCINE) 5000 UNITS/ML 1ML VIAL SC SCH ×2 (10:54→22:04)
[2022-12-23 13:00] VITALS: BP 160/52
[2022-12-23] MEDS ORDERED: PATIENTS OWN MEDICATION (EPOGEN 10,000 UNITS) SUBCUT ONE (13:00)
[2022-12-23] MEDS ORDERED: ENALAPRIL MALEATE 2.5 MG TAB PO ONE (13:45)
[2022-12-23] MEDS ORDERED: EPOETIN ALFA-EPBX 10,000 UNIT/1ML VIAL SC ONE ×2 (13:45→15:15)
[2022-12-23 17:00] VITALS: BP 147/64
[2022-12-23] MEDS: NIFEdipine ER 30 MG TAB PO SCH (18:12)
[2022-12-23 22:00] VITALS: BP 158/60
[2022-12-23] MEDS: ACETAMINOPHEN 325 MG TAB PO PRN (22:23)
[2022-12-24 05:00] VITALS: BP 112/58
[2022-12-24] MEDS: LEVOTHYROXINE SODIUM 50 MCG TAB PO SCH (05:23)
[2022-12-24] MEDS: hydrALAZINE HCL 25 MG TAB PO SCH ×3 (05:23→22:05)
[2022-12-24] MEDS: InsuLIN REG 1unit/0.01ml Soln (100units/ml) SC SCH ×4 (05:23→22:20)
[2022-12-24] MEDS: ACCU-CHEK COMFORT CURVE STRIP VI SCH ×4 (05:24→22:07)
[2022-12-24 05:41] LABS: Calcium 7.9 mg/dL (8.5-10.1)
[2022-12-24] MEDS: cefTRIAXone 1GM/50ML D5W 50 ML IV SCH (08:09)
[2022-12-24 09:00] VITALS: BP 158/48
[2022-12-24] MEDS: LACTULOSE 20Gm/30ML SOLN PO SCH ×2 (10:10→22:02)
[2022-12-24] MEDS: DOXAZOSIN MESYL 2 MG TAB PO SCH ×2 (10:10→22:07)
[2022-12-24] MEDS: PANTOPRAZOLE 40 MG/10 ML VIAL INJ IV SCH (10:10)
[2022-12-24] MEDS: GLIMEPIRIDE 2 MG TAB PO SCH ×2 (10:10→22:04)
[2022-12-24] MEDS: ATORVASTATIN 20 MG TAB PO SCH (10:11)
[2022-12-24] MEDS: amLODIPine BESYLATE 5 MG TAB PO SCH (10:11)
[2022-12-24] MEDS: ASPirin-EC 81 mg tab PO SCH (10:11)
[2022-12-24] MEDS: ENALAPRIL MALEATE 2.5 MG TAB PO SCH (10:11)
[2022-12-24] MEDS: HEPARIN SODIUM (PORCINE) 5000 UNITS/ML 1ML VIAL SC SCH ×2 (10:12→22:19)
[2022-12-24 13:00] VITALS: BP 113/56
[2022-12-24] MEDS: SODIUM FERR GLUC 62.5MG/5ML 125 MG in SODIUM CHL 0.9% 100 ML IV SCH (13:00)
[2022-12-24] MEDS ORDERED: FLEET ENEMA(ADULT) 135 ML PR ONE (15:45)
[2022-12-24 16:41] VITALS: BP 153/57
[2022-12-24] MEDS ORDERED: EPOETIN ALFA-EPBX 10,000 UNIT/1ML VIAL SC ONE (17:00)
[2022-12-24 17:16] LABS: Basophils # (auto) 0 10 ^3/uL (0-0.2); Basophils % (auto) 0.2 % (0.0-2.0); Eosinophils # (auto) 0 10 ^3/uL (0-0.8); Hemoglobin 8.2 g/dL (12.2-16.2); Lymphocytes # (auto) 0.5 10 ^3/uL (0.4-5.4); Lymphocytes % (auto) 5.4 % (10.0-50.0); Monocytes # (auto) 0.5 10 ^3/uL (0-1.3); Neutrophils # (auto) 7.9 10 ^3/uL (1.6-8.6); White Blood Cell 8.9 10^3/uL (4.4-10.8)
[2022-12-24 17:17] LABS: Eosinophils % (auto) 0.4 % (0.0-7.0); Hematocrit 25.3 % (36.0-46.0); Mean Corpuscular Hemoglobin 30.4 pg (28.0-32.0); Mean Corpuscular Hgb Conc. 32.5 g/dL (32.0-36.0); Mean Corpuscular Volume 93.7 fL (80.0-100.0); Monocytes % (auto) 5.1 % (0.0-12.0); Neutrophils % (auto) 88.9 % (37.0-80.0); Nucleated Red Blood Cells % 0.1 %
[2022-12-24] MEDS: NIFEdipine ER 30 MG TAB PO SCH (18:41)
[2022-12-24 22:00] VITALS: BP 159/60
[2022-12-24] MEDS: ACETAMINOPHEN 325 MG TAB PO PRN (22:04)
[2022-12-25 05:00] VITALS: BP 159/50
[2022-12-25] MEDS: hydrALAZINE HCL 25 MG TAB PO SCH ×3 (05:33→22:40)
[2022-12-25] MEDS: LEVOTHYROXINE SODIUM 50 MCG TAB PO SCH (05:33)
[2022-12-25] MEDS: cloNIDine HCL 0.1 MG TAB PO PRN (05:34)
[2022-12-25 06:32] LABS: Potassium 4.1 mmol/L (3.5-5.1)
[2022-12-25] MEDS: InsuLIN REG 1unit/0.01ml Soln (100units/ml) SC SCH ×4 (06:35→22:00)
[2022-12-25] MEDS: ACCU-CHEK COMFORT CURVE STRIP VI SCH ×4 (06:36→22:42)
[2022-12-25 06:37] LABS: BUN/Creatinine Ratio 14.1
[2022-12-25 09:15] VITALS: BP 129/43
[2022-12-25] MEDS: LACTULOSE 20Gm/30ML SOLN PO SCH ×2 (09:29→22:34)
[2022-12-25] MEDS: cefTRIAXone 1GM/50ML D5W 50 ML IV SCH (09:29)
[2022-12-25] MEDS: GLIMEPIRIDE 2 MG TAB PO SCH ×2 (09:30→22:39)
[2022-12-25] MEDS: ATORVASTATIN 20 MG TAB PO SCH (09:31)
[2022-12-25] MEDS: ASPirin-EC 81 mg tab PO SCH (09:31)
[2022-12-25] MEDS: DOXAZOSIN MESYL 2 MG TAB PO SCH ×2 (09:31→22:40)
[2022-12-25] MEDS: ENALAPRIL MALEATE 2.5 MG TAB PO SCH (09:31)
[2022-12-25] MEDS: PANTOPRAZOLE 40 MG/10 ML VIAL INJ IV SCH (09:32)
[2022-12-25 09:42] VITALS: BP 134/46
[2022-12-25] MEDS: HEPARIN SODIUM (PORCINE) 5000 UNITS/ML 1ML VIAL SC SCH ×2 (10:47→22:42)
[2022-12-25] MEDS: amLODIPine BESYLATE 5 MG TAB PO SCH (10:49)
[2022-12-25] MEDS: ONDANSETRON HCL 4 MG/2 ML VIAL IV PRN ×2 (10:55→10:57)
[2022-12-25 13:00] VITALS: BP 146/49
[2022-12-25] MEDS: SODIUM FERR GLUC 62.5MG/5ML 125 MG in SODIUM CHL 0.9% 100 ML IV SCH (13:00)
[2022-12-25 17:00] VITALS: BP 132/47
[2022-12-25] MEDS: NIFEdipine ER 30 MG TAB PO SCH (17:38)
[2022-12-25 22:00] VITALS: BP 138/47
[2022-12-25] MEDS: OSELTAMIVIR 30 MG CAP PO SCH (23:29)
[2022-12-26 05:00] VITALS: BP 156/53
[2022-12-26] MEDS: LEVOTHYROXINE SODIUM 50 MCG TAB PO SCH (06:01)
[2022-12-26] MEDS: hydrALAZINE HCL 25 MG TAB PO SCH ×3 (06:01→22:18)
[2022-12-26] MEDS: ACCU-CHEK COMFORT CURVE STRIP VI SCH ×4 (06:01→22:08)
[2022-12-26] MEDS: InsuLIN REG 1unit/0.01ml Soln (100units/ml) SC SCH ×4 (06:16→22:00)
[2022-12-26 06:36] LABS: BUN/Creatinine Ratio 13.3; Calcium 8.2 mg/dL (8.5-10.1); Potassium 4.5 mmol/L (3.5-5.1)
[2022-12-26] MEDS: cefTRIAXone 1GM/50ML D5W 50 ML IV SCH (08:14)
[2022-12-26] MEDS: ASPirin-EC 81 mg tab PO SCH (08:15)
[2022-12-26] MEDS: ENALAPRIL MALEATE 2.5 MG TAB PO SCH (08:15)
[2022-12-26] MEDS: PANTOPRAZOLE 40 MG/10 ML VIAL INJ IV SCH (08:15)
[2022-12-26] MEDS: DOXAZOSIN MESYL 2 MG TAB PO SCH ×2 (08:16→22:18)
[2022-12-26] MEDS: LACTULOSE 20Gm/30ML SOLN PO SCH ×2 (08:16→22:18)
[2022-12-26] MEDS: ATORVASTATIN 20 MG TAB PO SCH (08:16)
[2022-12-26] MEDS: amLODIPine BESYLATE 5 MG TAB PO SCH (08:16)
[2022-12-26] MEDS: GLIMEPIRIDE 2 MG TAB PO SCH ×2 (08:17→22:00)
[2022-12-26] MEDS: HEPARIN SODIUM (PORCINE) 5000 UNITS/ML 1ML VIAL SC SCH ×2 (08:27→22:20)
[2022-12-26 09:00] VITALS: BP 141/47
[2022-12-26] MEDS: SODIUM FERR GLUC 62.5MG/5ML 125 MG in SODIUM CHL 0.9% 100 ML IV SCH (12:19)
[2022-12-26] MEDS ORDERED: LACTULOSE 20Gm/30ML SOLN PO ONE (12:30)
[2022-12-26 13:00] VITALS: BP 163/56
[2022-12-26 17:00] VITALS: BP 150/54
[2022-12-26] MEDS: NIFEdipine ER 30 MG TAB PO SCH (17:31)
[2022-12-26 21:49] VITALS: BP 147/59
[2022-12-26] MEDS: OSELTAMIVIR 30 MG CAP PO SCH (22:58)
[2022-12-27 04:49] VITALS: BP 161/59
[2022-12-27] MEDS: hydrALAZINE HCL 25 MG TAB PO SCH ×3 (06:01→22:43)
[2022-12-27] MEDS: InsuLIN REG 1unit/0.01ml Soln (100units/ml) SC SCH ×4 (06:17→22:00)
[2022-12-27] MEDS: ACCU-CHEK COMFORT CURVE STRIP VI SCH ×4 (06:17→22:51)
[2022-12-27] MEDS: LEVOTHYROXINE SODIUM 50 MCG TAB PO SCH (06:17)
[2022-12-27 09:00] VITALS: BP 158/48
[2022-12-27] MEDS: GLIMEPIRIDE 2 MG TAB PO SCH ×2 (09:47→22:00)
[2022-12-27] MEDS: amLODIPine BESYLATE 5 MG TAB PO SCH (09:49)
[2022-12-27] MEDS: ATORVASTATIN 20 MG TAB PO SCH (09:49)
[2022-12-27] MEDS: PANTOPRAZOLE 40 MG/10 ML VIAL INJ IV SCH (09:50)
[2022-12-27] MEDS: ASPirin-EC 81 mg tab PO SCH (09:50)
[2022-12-27] MEDS: cefTRIAXone 1GM/50ML D5W 50 ML IV SCH (09:50)
[2022-12-27] MEDS: DOXAZOSIN MESYL 2 MG TAB PO SCH ×2 (09:50→22:43)
[2022-12-27] MEDS: LACTULOSE 20Gm/30ML SOLN PO SCH ×2 (09:51→22:43)
[2022-12-27] MEDS: HEPARIN SODIUM (PORCINE) 5000 UNITS/ML 1ML VIAL SC SCH ×2 (10:07→22:50)
[2022-12-27] MEDS: SODIUM FERR GLUC 62.5MG/5ML 125 MG in SODIUM CHL 0.9% 100 ML IV SCH (12:32)
[2022-12-27 13:00] VITALS: BP 127/61
[2022-12-27 16:52] VITALS: BP 165/62
[2022-12-27] MEDS: NIFEdipine ER 30 MG TAB PO SCH (17:36)
[2022-12-27 18:36] LABS: Basophils # (auto) 0.1 10 ^3/uL (0-0.2); Basophils % (auto) 0.8 % (0.0-2.0); Calcium 8.3 mg/dL (8.5-10.1); Eosinophils # (auto) 0.2 10 ^3/uL (0-0.8); Eosinophils % (auto) 1.6 % (0.0-7.0); Hematocrit 26.3 % (36.0-46.0); Hemoglobin 8.3 g/dL (12.2-16.2); Lymphocytes # (auto) 1.1 10 ^3/uL (0.4-5.4); Lymphocytes % (auto) 10.5 % (10.0-50.0); Mean Corpuscular Hemoglobin 30.8 pg (28.0-32.0); Mean Corpuscular Hgb Conc. 31.6 g/dL (32.0-36.0); Mean Corpuscular Volume 97.6 fL (80.0-100.0); Monocytes # (auto) 0.8 10 ^3/uL (0-1.3); Monocytes % (auto) 8.2 % (0.0-12.0); Neutrophils # (auto) 7.9 10 ^3/uL (1.6-8.6); Neutrophils % (auto) 78.9 % (37.0-80.0); Nucleated Red Blood Cells % 0.4 %; Potassium 4.4 mmol/L (3.5-5.1); Red Cell Distribution Width 15.5 % (11.8-14.3); White Blood Cell 10.1 10^3/uL (4.4-10.8)
[2022-12-27 18:39] LABS: BUN/Creatinine Ratio 14.1
[2022-12-27 22:00] VITALS: BP 165/66
[2022-12-27] MEDS: OSELTAMIVIR 30 MG CAP PO SCH (22:00)
[2022-12-28 05:00] VITALS: BP 120/60
[2022-12-28] MEDS: hydrALAZINE HCL 25 MG TAB PO SCH ×3 (05:39→22:56)
[2022-12-28] MEDS: LEVOTHYROXINE SODIUM 50 MCG TAB PO SCH (05:39)
[2022-12-28] MEDS: InsuLIN REG 1unit/0.01ml Soln (100units/ml) SC SCH ×4 (05:40→22:00)
[2022-12-28] MEDS: ACCU-CHEK COMFORT CURVE STRIP VI SCH ×4 (05:40→22:57)
[2022-12-28 08:54] LABS: INR 0.98 (0.9-1.15); Partial Thromboplastin Time 34.5 sec (24.6-33.4)
[2022-12-28 09:06] VITALS: BP 146/61
[2022-12-28] MEDS: GLIMEPIRIDE 2 MG TAB PO SCH ×2 (09:40→22:00)
[2022-12-28] MEDS: cefTRIAXone 1GM/50ML D5W 50 ML IV SCH (09:41)
[2022-12-28] MEDS: PANTOPRAZOLE 40 MG/10 ML VIAL INJ IV SCH (09:41)
[2022-12-28] MEDS: LACTULOSE 20Gm/30ML SOLN PO SCH ×2 (09:41→22:54)
[2022-12-28] MEDS: ATORVASTATIN 20 MG TAB PO SCH (09:42)
[2022-12-28] MEDS: amLODIPine BESYLATE 5 MG TAB PO SCH (09:42)
[2022-12-28] MEDS: ASPirin-EC 81 mg tab PO SCH (09:42)
[2022-12-28] MEDS: DOXAZOSIN MESYL 2 MG TAB PO SCH ×2 (09:43→22:55)
[2022-12-28] MEDS: HEPARIN SODIUM (PORCINE) 5000 UNITS/ML 1ML VIAL SC SCH ×2 (10:16→23:06)
[2022-12-28] MEDS: SODIUM FERR GLUC 62.5MG/5ML 125 MG in SODIUM CHL 0.9% 100 ML IV SCH (12:35)
[2022-12-28 12:51] VITALS: BP 152/65
[2022-12-28 16:59] VITALS: BP 153/52
[2022-12-28] MEDS: NIFEdipine ER 30 MG TAB PO SCH (18:25)
[2022-12-28 22:00] VITALS: BP 173/60
[2022-12-28] MEDS: OSELTAMIVIR 30 MG CAP PO SCH (22:00)
[2022-12-29] VITALS (10 sets, daily range): BP systolic 141–160; BP diastolic 51–65
[2022-12-29] MEDS: ACCU-CHEK COMFORT CURVE STRIP VI SCH ×4 (05:37→22:23)
[2022-12-29] MEDS: InsuLIN REG 1unit/0.01ml Soln (100units/ml) SC SCH ×4 (05:38→22:00)
[2022-12-29] MEDS: hydrALAZINE HCL 25 MG TAB PO SCH ×3 (05:38→22:22)
[2022-12-29] MEDS: LEVOTHYROXINE SODIUM 50 MCG TAB PO SCH (05:39)
[2022-12-29 06:41] LABS: Basophils # (auto) 0 10 ^3/uL (0-0.2); Basophils % (auto) 0.4 % (0.0-2.0); Eosinophils # (auto) 0.2 10 ^3/uL (0-0.8); Hemoglobin 7.9 g/dL (12.2-16.2); Monocytes # (auto) 0.9 10 ^3/uL (0-1.3); White Blood Cell 9.2 10^3/uL (4.4-10.8)
[2022-12-29 06:45] LABS: Eosinophils % (auto) 2.2 % (0.0-7.0); Hematocrit 23.7 % (36.0-46.0); Lymphocytes # (auto) 0.9 10 ^3/uL (0.4-5.4); Lymphocytes % (auto) 9.3 % (10.0-50.0); Mean Corpuscular Hgb Conc. 33.4 g/dL (32.0-36.0); Mean Corpuscular Volume 92.9 fL (80.0-100.0); Monocytes % (auto) 10.2 % (0.0-12.0); Neutrophils # (auto) 7.2 10 ^3/uL (1.6-8.6); Neutrophils % (auto) 77.9 % (37.0-80.0); Nucleated Red Blood Cells % 0.3 %; Red Blood Cells 2.55 10^6/uL (4.0-5.20); Red Cell Distribution Width 14.6 % (11.8-14.3)
[2022-12-29 06:58] LABS: BUN/Creatinine Ratio 14.9; Calcium 8.3 mg/dL (8.5-10.1); Potassium 4.4 mmol/L (3.5-5.1)
[2022-12-29] MEDS: Glucerna Carbsteady SHAKE Vanilla 8oz PO SCH ×3 (08:00→18:00)
[2022-12-29] MEDS: GLIMEPIRIDE 2 MG TAB PO SCH ×2 (08:48→22:00)
[2022-12-29] MEDS: ATORVASTATIN 20 MG TAB PO SCH (08:49)
[2022-12-29] MEDS: DOXAZOSIN MESYL 2 MG TAB PO SCH ×2 (08:49→22:22)
[2022-12-29] MEDS: ASPirin-EC 81 mg tab PO SCH (08:49)
[2022-12-29] MEDS: LACTULOSE 20Gm/30ML SOLN PO SCH ×2 (08:50→22:21)
[2022-12-29] MEDS: PANTOPRAZOLE 40 MG/10 ML VIAL INJ IV SCH (08:50)
[2022-12-29] MEDS: amLODIPine BESYLATE 5 MG TAB PO SCH (08:50)
[2022-12-29] MEDS: HEPARIN SODIUM (PORCINE) 5000 UNITS/ML 1ML VIAL SC SCH ×2 (09:45→22:23)
[2022-12-29] MEDS: SODIUM FERR GLUC 62.5MG/5ML 125 MG in SODIUM CHL 0.9% 100 ML IV SCH (12:40)
[2022-12-29] MEDS ORDERED: LACT10PA2 PO ×3 (13:32→13:36)
[2022-12-29] MEDS ORDERED: PANT40T PO ×3 (13:32→13:36)
[2022-12-29] MEDS ORDERED: FERR-7 PO ×3 (13:32→13:36)
[2022-12-29] MEDS ORDERED: ONDA-144 PO ×3 (13:32→13:36)
[2022-12-29] MEDS: NIFEdipine ER 30 MG TAB PO SCH (18:00)
[2022-12-29] MEDS: OSELTAMIVIR 30 MG CAP PO SCH (22:23)
[2022-12-30 05:00] VITALS: BP 171/59
[2022-12-30] MEDS: InsuLIN REG 1unit/0.01ml Soln (100units/ml) SC SCH ×2 (06:09→12:07)
[2022-12-30] MEDS: hydrALAZINE HCL 25 MG TAB PO SCH ×2 (06:09→14:00)
[2022-12-30] MEDS: ACCU-CHEK COMFORT CURVE STRIP VI SCH ×2 (06:09→12:07)
[2022-12-30] MEDS: LEVOTHYROXINE SODIUM 50 MCG TAB PO SCH (06:10)
[2022-12-30] MEDS: Glucerna Carbsteady SHAKE Vanilla 8oz PO SCH ×2 (08:00→12:08)
[2022-12-30] MEDS: GLIMEPIRIDE 2 MG TAB PO SCH (10:00)
[2022-12-30] MEDS: PANTOPRAZOLE 40 MG/10 ML VIAL INJ IV SCH (10:21)
[2022-12-30] MEDS: LACTULOSE 20Gm/30ML SOLN PO SCH (10:21)
[2022-12-30] MEDS: ATORVASTATIN 20 MG TAB PO SCH (10:22)
[2022-12-30] MEDS: ASPirin-EC 81 mg tab PO SCH (10:22)
[2022-12-30] MEDS: DOXAZOSIN MESYL 2 MG TAB PO SCH (10:22)
[2022-12-30] MEDS: amLODIPine BESYLATE 5 MG TAB PO SCH (10:23)
[2022-12-30] MEDS: HEPARIN SODIUM (PORCINE) 5000 UNITS/ML 1ML VIAL SC SCH (10:24)
[2022-12-30] MEDS: SODIUM FERR GLUC 62.5MG/5ML 125 MG in SODIUM CHL 0.9% 100 ML IV SCH (12:00)
[2022-12-30 13:03] LABS: Hematocrit 29.1 % (36.0-46.0); Hemoglobin 9.8 g/dL (12.2-16.2); Mean Corpuscular Hemoglobin 31.2 pg (28.0-32.0); Mean Corpuscular Hgb Conc. 33.5 g/dL (32.0-36.0); Red Blood Cells 3.13 10^6/uL (4.0-5.20); Red Cell Distribution Width 14.5 % (11.8-14.3); White Blood Cell 9.6 10^3/uL (4.4-10.8)
[2022-12-30 13:08] LABS: Basophils % (manual) 0 (0.0-2.0); Blast Cells 0; Metamyelocytes % 0; Promyelocytes % 0; Reactive Lymphocytes 0
[2022-12-30 16:57] LABS: Band Neutrophils % (manual) 2; Eosinophils % (manual) 3 (0-7); Lymphocytes % (manual) 12 (10.0-50.0); Monocytes % (manual) 7 (0-12)
[2022-12-30 16:58] LABS: Myelocytes % 1
== END 2022-12-30 14:20 | disposition home health service (06) | DRG 682 ==
LOC: EDBD 11:42 → ER 11:42 → TELE 17:11 → TELE-WESTW 12-20 21:47
PROVIDERS: ADMIT Nurse Practitioner Family; ATTEND Family Medicine
PROC: 30233N1 Transfusion of Nonautologous Red Blood Cells into Peripheral Vein, Percutaneous Approach (ICD-10-PCS; principal; 2022-12-29)
DX: N17.9 Acute kidney failure, unspecified (principal); I21.4 Non-ST elevation (NSTEMI) myocardial infarction; E44.0 Moderate protein-calorie malnutrition; J44.1 Chronic obstructive pulmonary disease with (acute) exacerbation; N39.0 Urinary tract infection, site not specified; N18.4 Chronic kidney disease, stage 4 (severe); E03.9 Hypothyroidism, unspecified; E11.22 Type 2 diabetes mellitus with diabetic chronic kidney disease; Z20.822 Contact with and (suspected) exposure to COVID-19; E11.65 Type 2 diabetes mellitus with hyperglycemia; E78.5 Hyperlipidemia, unspecified; E83.42 Hypomagnesemia; E83.51 Hypocalcemia; E86.0 Dehydration; E87.6 Hypokalemia; I12.9 Hypertensive chronic kidney disease with stage 1 through stage 4 chronic kidney disease, or unspecified chronic kidney disease; K59.00 Constipation, unspecified; D64.9 Anemia, unspecified; N14.11 Contrast-induced nephropathy; E78.00 Pure hypercholesterolemia, unspecified; T50.8X5A Adverse effect of diagnostic agents, initial encounter; Z82.49 Family history of ischemic heart disease and other diseases of the circulatory system; Z83.3 Family history of diabetes mellitus; Z86.73 Personal history of transient ischemic attack (TIA), and cerebral infarction without residual deficits; Y92.89 Other specified places as the place of occurrence of the external cause
CPT/HCPCS: 36415; 70450; 71045; 74018; 76775; 80048; 80053; 81001; 82570; 82962; 83735; 84156; 84300; 84443; 84484; 85007; 85018; 85025; 85027; 85045; 85610; 85730; 86850; 86900; 86901; 86920; 87040; 87086; 87426; 87804; 93005; 96365; 96372; 99291; C9113; G0378; G9035; J0696; J1815; J2405

== ENCOUNTER → 2023-01-13 | Outpatient (CLI) | payer MEDICARE, MEDICAID ==
[~2023-01-13] MED LIST changes: +FERR-7 PO; +LACT10PA2 PO; +ONDA-144 PO; +PANT40T PO
[2023-01-13 15:42] LABS: % Iron Saturation 76.8 % (15-50)
== END | disposition home or self-care (01) ==
LOC: LAB 14:33
PROVIDERS: ATTEND Internal Medicine Cardiovascular Disease
DX: E11.9 Type 2 diabetes mellitus without complications (principal); D64.9 Anemia, unspecified
CPT/HCPCS: 36415; 83540; 83550; 85045

== ENCOUNTER → 2023-01-13 | Outpatient (CLI) | payer MEDICARE, MEDICAID ==
[~2023-01-13] VITALS: Ht 30.5 cm; Wt 0.5 kg
[~2023-01-13] MED LIST changes: +SODIUM FERR GLUC 62.5MG/5ML 125 MG in SODIUM CHL 0.9% 100 ML IV ONE; +SODIUM FERRIC GLUC CPLEX 62.5MG/5ML VIAL IV ONE
[2023-01-13 11:45] VITALS: BP 174/58
[2023-01-13 13:59] VITALS: BP 168/62
== END | disposition home or self-care (01) ==
LOC: CHF HDHVI 11:38
PROVIDERS: ATTEND Internal Medicine Cardiovascular Disease
DX: I12.9 Hypertensive chronic kidney disease with stage 1 through stage 4 chronic kidney disease, or unspecified chronic kidney disease (principal); E11.22 Type 2 diabetes mellitus with diabetic chronic kidney disease; N18.4 Chronic kidney disease, stage 4 (severe); D63.1 Anemia in chronic kidney disease; I25.10 Atherosclerotic heart disease of native coronary artery without angina pectoris; J44.9 Chronic obstructive pulmonary disease, unspecified; E03.9 Hypothyroidism, unspecified; I25.2 Old myocardial infarction; E78.00 Pure hypercholesterolemia, unspecified; Z79.899 Other long term (current) drug therapy; Z86.73 Personal history of transient ischemic attack (TIA), and cerebral infarction without residual deficits; Z20.822 Contact with and (suspected) exposure to COVID-19
CPT/HCPCS: 96365; G0463; J2916

== ENCOUNTER 2023-02-15 17:25 | Inpatient (IN) | payer MEDICARE, MEDICAID ==
[~2023-02-15] VITALS: Ht 170.2 cm; Wt 69.7 kg
[~2023-02-15 17:25] MED LIST changes: -SODIUM FERR GLUC 62.5MG/5ML 125 MG in SODIUM CHL 0.9% 100 ML IV ONE; -SODIUM FERRIC GLUC CPLEX 62.5MG/5ML VIAL IV ONE
[2023-02-15] MEDS ORDERED: MORPHINE SULFATE INJ 2 MG/ml SYRG IV PRN (18:45)
[2023-02-15] MEDS ORDERED: NITROGLYCERIN 0.4 MG SL TAB SL PRN (18:45)
[2023-02-15] MEDS ORDERED: CLON0.2T PO (19:14)
[2023-02-15] MEDS ORDERED: TRIA75TA55 PO (19:18)
[2023-02-15] MEDS ORDERED: GLIM4TAB42 PO (19:18)
[2023-02-15] MEDS ORDERED: NIF10C PO (19:20)
[2023-02-15 20:15] LABS: Basophils # (auto) 0 10 ^3/uL (0-0.2); Basophils % (auto) 0.3 % (0.0-2.0); Eosinophils # (auto) 0.3 10 ^3/uL (0-0.8); Eosinophils % (auto) 3.6 % (0.0-7.0); Hematocrit 32.2 % (36.0-46.0); Hemoglobin 10.4 g/dL (12.2-16.2); Lymphocytes # (auto) 1.1 10 ^3/uL (0.4-5.4); Lymphocytes % (auto) 16.4 % (10.0-50.0); Mean Corpuscular Hemoglobin 29.9 pg (28.0-32.0); Mean Corpuscular Hgb Conc. 32.4 g/dL (32.0-36.0); Mean Corpuscular Volume 92.1 fL (80.0-100.0); Monocytes # (auto) 0.6 10 ^3/uL (0-1.3); Monocytes % (auto) 8.3 % (0.0-12.0); Neutrophils # (auto) 4.9 10 ^3/uL (1.6-8.6); Neutrophils % (auto) 71.4 % (37.0-80.0); Nucleated Red Blood Cells % 0.1 %; Red Blood Cells 3.49 10^6/uL (4.0-5.20); Red Cell Distribution Width 16.4 % (11.8-14.3); White Blood Cell 6.9 10^3/uL (4.4-10.8)
[2023-02-15 20:31] LABS: Albumin 2.9 g/dL (3.4-5.0); BUN/Creatinine Ratio 16.9 (10.0-20.0); Calcium 8.4 mg/dL (8.5-10.1); Potassium 3.7 mmol/L (3.5-5.1)
[2023-02-15 20:34] LABS: Bilirubin, Total 0.3 mg/dL (0.2-1.0); Total Protein 7.5 g/dL (6.4-8.2)
[2023-02-15] MEDS: SACUBITRIL-VALSARTAN 24mg/26mg TAB PO SCH (21:38)
[2023-02-15] MEDS: ALPRAZolam 0.25 MG TAB PO SCH (21:38)
[2023-02-15] MEDS: NIFEdipine ER 30 MG TAB PO SCH (21:38)
[2023-02-15] MEDS: cloNIDine HCL 0.1 MG TAB PO SCH (21:38)
[2023-02-15 22:06] VITALS: BP 171/68
[2023-02-16 04:42] VITALS: BP 149/60
[2023-02-16] MEDS: cloNIDine HCL 0.1 MG TAB PO SCH ×3 (05:58→21:13)
[2023-02-16 09:00] VITALS: BP 155/59
[2023-02-16] MEDS: SACUBITRIL-VALSARTAN 24mg/26mg TAB PO SCH ×2 (09:42→21:13)
[2023-02-16] MEDS: NIFEdipine ER 30 MG TAB PO SCH ×2 (09:46→21:14)
[2023-02-16] MEDS: ALPRAZolam 0.25 MG TAB PO SCH ×2 (09:46→21:14)
[2023-02-16 13:00] VITALS: BP 150/59
[2023-02-16 16:31] VITALS: BP 166/68
[2023-02-16] MEDS: D5W/SOD CHL 0.45%/KCL 20MEQ 1,000 ML IV SCH (18:51)
[2023-02-16 22:00] VITALS: BP 192/76
[2023-02-16 23:30] VITALS: BP 168/70
[2023-02-17 05:00] VITALS: BP 157/63
[2023-02-17] MEDS: cloNIDine HCL 0.1 MG TAB PO SCH ×3 (06:42→21:52)
[2023-02-17 09:00] VITALS: BP 165/62
[2023-02-17] MEDS: NIFEdipine ER 30 MG TAB PO SCH ×2 (09:55→21:51)
[2023-02-17] MEDS: SACUBITRIL-VALSARTAN 24mg/26mg TAB PO SCH ×2 (09:55→21:52)
[2023-02-17] MEDS: ALPRAZolam 0.25 MG TAB PO SCH ×2 (09:55→21:51)
[2023-02-17] MEDS: D5W/SOD CHL 0.45%/KCL 20MEQ 1,000 ML IV SCH ×2 (10:00)
[2023-02-17] MEDS ORDERED: SACUBITRIL-VALSARTAN 24mg/26mg TAB PO ONE (12:00)
[2023-02-17 12:47] VITALS: BP 172/66
[2023-02-17] MEDS ORDERED: OMEP-263 PO (13:55)
[2023-02-17 16:58] VITALS: BP 163/73
[2023-02-17 22:00] VITALS: BP 198/76
[2023-02-18 05:00] VITALS: BP 158/64
[2023-02-18] MEDS: cloNIDine HCL 0.1 MG TAB PO SCH ×3 (05:36→21:22)
[2023-02-18 08:32] VITALS: BP 155/50
[2023-02-18 09:16] LABS: Urine Bacteria FEW /hpf (None Seen); Urine Blood Negative /uL (Negative); Urine Hyaline Cast FEW /lpf (0 - 2); Urine Specific Gravity 1.013 (1.001-1.035); Urine WBC 14 /hpf (0 - 5)
[2023-02-18] MEDS: ALPRAZolam 0.25 MG TAB PO SCH ×2 (09:34→21:21)
[2023-02-18] MEDS: NIFEdipine ER 30 MG TAB PO SCH ×2 (09:34→21:21)
[2023-02-18] MEDS: SACUBITRIL-VALSARTAN 24mg/26mg TAB PO SCH ×2 (09:34→21:20)
[2023-02-18 13:00] VITALS: BP 149/58
[2023-02-18 16:48] VITALS: BP 129/58
[2023-02-18 22:00] VITALS: BP 152/69
[2023-02-19 05:00] VITALS: BP 138/59
[2023-02-19] MEDS: cloNIDine HCL 0.1 MG TAB PO SCH ×3 (05:07→21:45)
[2023-02-19 08:00] VITALS: BP 148/59
[2023-02-19] MEDS: SACUBITRIL-VALSARTAN 24mg/26mg TAB PO SCH ×2 (09:17→21:44)
[2023-02-19] MEDS: NIFEdipine ER 30 MG TAB PO SCH (09:18)
[2023-02-19] MEDS: ALPRAZolam 0.25 MG TAB PO SCH ×2 (09:18→21:44)
[2023-02-19] MEDS: LACTULOSE 20Gm/30ML SOLN PO PRN (11:19)
[2023-02-19 12:00] VITALS: BP 145/62
[2023-02-19 13:13] LABS: Basophils # (auto) 0.1 10 ^3/uL (0-0.2); Basophils % (auto) 0.7 % (0.0-2.0); Eosinophils # (auto) 0.3 10 ^3/uL (0-0.8); Eosinophils % (auto) 3.3 % (0.0-7.0); Hematocrit 33.5 % (36.0-46.0); Hemoglobin 11.1 g/dL (12.2-16.2); Lymphocytes # (auto) 1.3 10 ^3/uL (0.4-5.4); Lymphocytes % (auto) 13.4 % (10.0-50.0); Mean Corpuscular Volume 90.7 fL (80.0-100.0); Monocytes # (auto) 0.4 10 ^3/uL (0-1.3); Monocytes % (auto) 4.7 % (0.0-12.0); Neutrophils # (auto) 7.3 10 ^3/uL (1.6-8.6); Neutrophils % (auto) 77.9 % (37.0-80.0); Nucleated Red Blood Cells % 0.1 %; Red Cell Distribution Width 16.2 % (11.8-14.3); White Blood Cell 9.4 10^3/uL (4.4-10.8)
[2023-02-19 13:33] LABS: Albumin 2.7 g/dL (3.4-5.0); Calcium 8.3 mg/dL (8.5-10.1); Potassium 3.9 mmol/L (3.5-5.1)
[2023-02-19 13:36] LABS: BUN/Creatinine Ratio 16.7 (10.0-20.0); Bilirubin, Total 0.2 mg/dL (0.2-1.0); Total Protein 7.5 g/dL (6.4-8.2)
[2023-02-19 16:00] VITALS: BP 153/67
[2023-02-19 22:50] VITALS: BP 168/75
[2023-02-20 05:00] VITALS: BP 167/68
[2023-02-20] MEDS: cloNIDine HCL 0.1 MG TAB PO SCH ×3 (05:56→22:44)
[2023-02-20] MEDS: LEVOTHYROXINE SODIUM 50 MCG TAB PO SCH (05:58)
[2023-02-20 08:00] VITALS: BP 171/68
[2023-02-20] MEDS: SACUBITRIL-VALSARTAN 24mg/26mg TAB PO SCH ×2 (09:02→22:44)
[2023-02-20] MEDS: ALPRAZolam 0.25 MG TAB PO SCH ×2 (09:05→22:45)
[2023-02-20 12:00] VITALS: BP 157/75
[2023-02-20 16:00] VITALS: BP 153/71
[2023-02-20] MEDS: D5W/SOD CHL 0.45%/KCL 20MEQ 1,000 ML IV SCH (18:00)
[2023-02-20 22:00] VITALS: BP 179/68
[2023-02-20] MEDS ORDERED: NITROFURANTOIN 100 mg CAP PO SCH (22:00)
[2023-02-20] MEDS: LACTULOSE 20Gm/30ML SOLN PO PRN (23:34)
[2023-02-21] MEDS: D5W/SOD CHL 0.45%/KCL 20MEQ 1,000 ML IV SCH ×3 (04:00→23:51)
[2023-02-21 05:00] VITALS: BP 149/56
[2023-02-21] MEDS: cloNIDine HCL 0.1 MG TAB PO SCH ×3 (05:52→21:41)
[2023-02-21] MEDS: LEVOTHYROXINE SODIUM 50 MCG TAB PO SCH (05:53)
[2023-02-21 08:56] VITALS: BP 140/63
[2023-02-21] MEDS: cefTRIAXone 1GM/50ML D5W 50 ML IV SCH (08:57)
[2023-02-21] MEDS: ALPRAZolam 0.25 MG TAB PO SCH ×2 (08:57→21:42)
[2023-02-21] MEDS: SACUBITRIL-VALSARTAN 24mg/26mg TAB PO SCH (08:57)
[2023-02-21 13:00] VITALS: BP 141/72
[2023-02-21 16:33] VITALS: BP 224/78
[2023-02-21 16:35] VITALS: BP 206/61
[2023-02-21] MEDS ORDERED: SACUBITRIL-VALSARTAN 24mg/26mg TAB PO SCH (17:02)
[2023-02-21] MEDS: NIFEdipine ER 30 MG TAB PO SCH ×2 (17:33→23:14)
[2023-02-21 22:00] VITALS: BP 170/47
[2023-02-21] MEDS ORDERED: SACUBITRIL-VALSARTAN 24mg/26mg TAB PO ONE ×2 (23:00)
[2023-02-22] MEDS ORDERED: ONDANSETRON HCL 4 MG/2 ML VIAL IV PRN (00:15)
[2023-02-22 05:00] VITALS: BP 107/34
[2023-02-22] MEDS: LEVOTHYROXINE SODIUM 50 MCG TAB PO SCH (06:46)
[2023-02-22] MEDS: cloNIDine HCL 0.1 MG TAB PO SCH ×3 (06:46→22:15)
[2023-02-22 06:49] VITALS: BP 111/45
[2023-02-22 09:00] VITALS: BP_SYST 136; BP_SYST 94; BP_DIAS 22; BP_DIAS 30
[2023-02-22] MEDS: cefTRIAXone 1GM/50ML D5W 50 ML IV SCH (09:06)
[2023-02-22] MEDS: ALPRAZolam 0.25 MG TAB PO SCH ×2 (09:14→22:16)
[2023-02-22] MEDS: SACUBITRIL-VALSARTAN 24mg/26mg TAB PO SCH ×3 (09:31→22:16)
[2023-02-22] MEDS: NIFEdipine ER 30 MG TAB PO SCH ×2 (09:50→22:00)
[2023-02-22] MEDS: D5W/SOD CHL 0.45%/KCL 20MEQ 1,000 ML IV SCH ×2 (10:00→20:00)
[2023-02-22 12:32] VITALS: BP 124/53
[2023-02-22 17:17] VITALS: BP 128/54
[2023-02-22 22:00] VITALS: BP 153/61
[2023-02-23 05:00] VITALS: BP 149/56
[2023-02-23] MEDS: cloNIDine HCL 0.1 MG TAB PO SCH ×3 (05:16→22:52)
[2023-02-23] MEDS: D5W/SOD CHL 0.45%/KCL 20MEQ 1,000 ML IV SCH ×2 (06:13→16:00)
[2023-02-23] MEDS: LEVOTHYROXINE SODIUM 50 MCG TAB PO SCH (06:32)
[2023-02-23 09:00] VITALS: BP 139/60
[2023-02-23] MEDS: NIFEdipine ER 30 MG TAB PO SCH ×2 (10:00→22:53)
[2023-02-23] MEDS: SACUBITRIL-VALSARTAN 24mg/26mg TAB PO SCH ×2 (10:00→22:41)
[2023-02-23] MEDS: cefTRIAXone 1GM/50ML D5W 50 ML IV SCH (10:19)
[2023-02-23] MEDS: ALPRAZolam 0.25 MG TAB PO SCH ×2 (12:00→22:41)
[2023-02-23 13:00] VITALS: BP 155/71
[2023-02-23 16:42] VITALS: BP 153/63
[2023-02-23 22:00] VITALS: BP 131/71
[2023-02-24] MEDS: D5W/SOD CHL 0.45%/KCL 20MEQ 1,000 ML IV SCH (02:00)
[2023-02-24 05:00] VITALS: BP 147/56
[2023-02-24] MEDS: cloNIDine HCL 0.1 MG TAB PO SCH (05:11)
[2023-02-24] MEDS: LEVOTHYROXINE SODIUM 50 MCG TAB PO SCH (06:15)
[2023-02-24 09:00] VITALS: BP 129/51
[2023-02-24] MEDS: SACUBITRIL-VALSARTAN 24mg/26mg TAB PO SCH ×2 (09:55→10:00)
[2023-02-24] MEDS: NIFEdipine ER 30 MG TAB PO SCH (09:57)
[2023-02-24] MEDS: cefTRIAXone 1GM/50ML D5W 50 ML IV SCH (09:59)
[2023-02-24] MEDS: ALPRAZolam 0.25 MG TAB PO SCH (10:00)
== END 2023-02-24 10:25 | disposition home or self-care (01) | DRG 305 ==
LOC: TELE-WESTW 17:25
PROVIDERS: ADMIT Internal Medicine Cardiovascular Disease; ATTEND Internal Medicine Cardiovascular Disease
PROC: 05H933Z Insertion of Infusion Device into Right Brachial Vein, Percutaneous Approach (ICD-10-PCS; principal; 2023-02-15)
PROC: B54MZZA Ultrasonography of Right Upper Extremity Veins, Guidance (ICD-10-PCS; 2023-02-15)
DX: I16.9 Hypertensive crisis, unspecified (principal); N39.0 Urinary tract infection, site not specified; I50.22 Chronic systolic (congestive) heart failure; N19 Unspecified kidney failure; E03.9 Hypothyroidism, unspecified; J44.9 Chronic obstructive pulmonary disease, unspecified; E86.1 Hypovolemia; E78.5 Hyperlipidemia, unspecified; I11.0 Hypertensive heart disease with heart failure; I27.21 Secondary pulmonary arterial hypertension; E87.6 Hypokalemia; Z83.3 Family history of diabetes mellitus; Z86.73 Personal history of transient ischemic attack (TIA), and cerebral infarction without residual deficits; Z82.49 Family history of ischemic heart disease and other diseases of the circulatory system; Z91.041 Radiographic dye allergy status
CPT/HCPCS: 36415; 80053; 81001; 85025; 97110; 97116; 97163; 97530; G0378; G0463; J0696; J2405

== ENCOUNTER → 2023-03-09 | Outpatient (CLI) | payer MEDICARE, MEDICAID ==
[~2023-03-09] MED LIST changes: -ASPI-394 PO; -CLON0.1T PO; +CLON0.2T PO; -CLOP75TA28 PO; -DICL1GEL26 TD; -FERR-7 PO; -FLUO0.05 EX; -GLIM-5 PO; +GLIM4TAB42 PO; -IBUP600T27 PO; -LACT10PA2 PO; +NIF10C PO; -NIFE90TA49 PO; +OMEP-263 PO; -ONDA-144 PO; -PANT40T PO; +READI-CAT 2 (BARIUM SULF)(VANILLA SMOOTHIE) 450ML ONE; -SACU1TAB4 PO
== END | disposition home or self-care (01) ==
LOC: Rad HDHVI 11:30
PROVIDERS: ATTEND Internal Medicine Cardiovascular Disease
DX: K80.20 Calculus of gallbladder without cholecystitis without obstruction (principal); I31.39 Other pericardial effusion (noninflammatory); K42.9 Umbilical hernia without obstruction or gangrene; D25.1 Intramural leiomyoma of uterus; K56.41 Fecal impaction; K58.9 Irritable bowel syndrome, unspecified
CPT/HCPCS: 74176

== ENCOUNTER 2023-09-20 03:37 | Inpatient (IN) | payer MEDICARE, MEDICAID ==
[~2023-09-20] VITALS: Ht 172.7 cm; Wt 75.3 kg
[2023-09-20] VITALS (10 sets, daily range): BP systolic 139–166; BP diastolic 61–93; PULSE 67–107; RESP 14–28; TEMP 97.9; O2SAT 10–100
[~2023-09-20 03:37] MED LIST changes: -OMEP-263 PO; +OMEP-448 PO; -READI-CAT 2 (BARIUM SULF)(VANILLA SMOOTHIE) 450ML ONE
[2023-09-20] MEDS ORDERED: IPRATROPIUM BROM 0.5 MG/2.5ML INH SOL NEB ONE ×2 (04:15→08:45)
[2023-09-20] MEDS ORDERED: LABETALOL HCL 5 MG/ML 4ML SYRINGE IV ONE (04:15)
[2023-09-20] MEDS ORDERED: ALBUTEROL SULF 2.5 MG/0.5ML(0.5%) NEB SOLN NEB ONE ×2 (04:15→08:45)
[2023-09-20 04:28] LABS: Basophils # (auto) 0 10 ^3/uL (0-0.2); Basophils % (auto) 0.1 % (0.0-2.0); Eosinophils # (auto) 0 10 ^3/uL (0-0.8); Hematocrit 25.2 % (36.0-46.0); Lymphocytes # (auto) 0.2 10 ^3/uL (0.4-5.4); Monocytes # (auto) 0.2 10 ^3/uL (0-1.3); Neutrophils # (auto) 12.2 10 ^3/uL (1.6-8.6); Red Cell Distribution Width 16.4 % (11.8-14.3); White Blood Cell 12.7 10^3/uL (4.4-10.8)
[2023-09-20 04:30] LABS: Hemoglobin 8.1 g/dL (12.2-16.2); Lymphocytes % (auto) 1.9 % (10.0-50.0); Mean Corpuscular Hemoglobin 29.7 pg (28.0-32.0); Mean Corpuscular Hgb Conc. 32.2 g/dL (32.0-36.0); Mean Corpuscular Volume 92.2 fL (80.0-100.0); Red Blood Cells 2.74 10^6/uL (4.0-5.20)
[2023-09-20 04:42] LABS: Alanine Aminotransferase 30 U/L (7-40); Albumin 4.6 g/dL (3.2-4.8); Alkaline Phosphatase 74 U/L (46-116); Anion Gap 13 (5-15); Aspartate Aminotransferase 25 U/L (13-40); BUN/Creatinine Ratio 10.6 (10.0-20.0); Bilirubin, Total 0.3 mg/dL (0.2-1.0); Blood Urea Nitrogen 59 mg/dL (9-23); Calcium 8.2 mg/dL (8.7-10.4); Carbon Dioxide 18 mmol/L (20-30); Chloride 111 mmol/L (98-107); Glucose 209 mg/dL (74-106); Lipase 72 U/L (12-53); Potassium 3.6 mmol/L (3.5-5.1); Sodium 142 mmol/L (136-145); Total Protein 7.9 g/dL (5.7-8.2)
[2023-09-20] MEDS ORDERED: PIPERACILLIN-TAZOB 3.375GM 100 ML IV ONE (06:45)
[2023-09-20] MEDS ORDERED: ENOXAPARIN SOD 80 MG/0.8ML SYRINGE SC ONE (06:45)
[2023-09-20] MEDS ORDERED: FUROSEMIDE 40 MG/4 ML VIAL IV ONE ×2 (06:45→12:30)
[2023-09-20] MEDS ORDERED: ALBUTEROL MEDNEB 2.5 mg/3ml NEB ONE (08:26)
[2023-09-20] MEDS ORDERED: IPRATROPIUM BROM 0.5 MG/2.5ML INH SOL ONE (08:37)
[2023-09-20] MEDS ORDERED: MIDAZOLAM DRIP 50 mg/50mL 50 ML IV ONE (11:52)
[2023-09-20] MEDS ORDERED: SUCCINYLCHOLINE CHLORIDE 20 MG/ML 10ML VIAL IV ONE ×2 (11:53→12:15)
[2023-09-20] MEDS ORDERED: ETOMIDATE (2MG/ML) 20ML VIAL IV ONE (12:15)
[2023-09-20] MEDS ORDERED: fentaNYL Drip 2500mCg/250mlNS 250 ML IV ONE (12:22)
[2023-09-20] MEDS: fentaNYL Drip 2500mCg/250mlNS 250 ML IV SCH (12:34)
[2023-09-20] MEDS: MIDAZOLAM DRIP 50 mg/50mL 50 ML IV SCH ×4 (12:36→19:09)
[2023-09-20] MEDS ORDERED: NITROGLYCERIN 0.4 MG SL TAB SL PRN (13:00)
[2023-09-20] MEDS ORDERED: MORPHINE SULFATE INJ 2 MG/ml SYRG IV PRN (13:00)
[2023-09-20] MEDS ORDERED: PANTOPRAZOLE 40 MG/10 ML VIAL INJ IV ONE (13:00)
[2023-09-20] MEDS ORDERED: DEXTROSE (50%) 50ML SYRG IV PRN ×2 (13:00→18:45)
[2023-09-20] MEDS ORDERED: methylPREDNISolone SOD SUCC 125 MG/2 ML VL IV ONE (13:00)
[2023-09-20 13:01] LABS: Base Excess -10.4 mmol/L (-2.0-2.0)
[2023-09-20] MEDS ORDERED: cefTRIAXone 1GM/50ML D5W 50 ML IV ONE (13:15)
[2023-09-20] MEDS ORDERED: AZITHROMYCIN 500MG/ 250ML 250 ML IV ONE (13:15)
[2023-09-20 13:26] LABS: Triglycerides 48 mg/dL (< 150)
[2023-09-20 13:27] LABS: LDL Cholesterol 46 mg/dL (< 100)
[2023-09-20 13:28] LABS: HDL Cholesterol 101 mg/dL (40-59)
[2023-09-20 13:29] LABS: Cholesterol 173 mg/dL (< 200)
[2023-09-20] MEDS: ALBUTEROL MEDNEB 2.5 mg/3ml NEB NEB SCH ×3 (14:00→23:09)
[2023-09-20] MEDS: IPRATROPIUM BROM 0.5 MG/2.5ML INH SOL NEB SCH ×3 (14:00→23:09)
[2023-09-20] MEDS: HEPARIN SODIUM (PORCINE) 5000 UNITS/ML 1ML VIAL SC SCH ×2 (15:31→22:53)
[2023-09-20 15:40] LABS: INR 1.15 (0.9-1.15)
[2023-09-20 15:42] LABS: Magnesium 1.4 mg/dL (1.6-2.6)
[2023-09-20 15:44] LABS: Phosphorus 6.9 mg/dL (2.4-5.1)
[2023-09-20] MEDS: FUROSEMIDE INJECTION 100 MG in D5W 5% 100 ML IV SCH (15:45)
[2023-09-20 15:47] LABS: Triglycerides 42 mg/dL (< 150)
[2023-09-20 15:48] LABS: LDL Cholesterol 37 mg/dL (< 100)
[2023-09-20 15:49] LABS: Cholesterol 155 mg/dL (< 200); HDL Cholesterol 92 mg/dL (40-59)
[2023-09-20] MEDS: DOPamine 1600MCG/ML D5W 250 ML IV SCH (15:57)
[2023-09-20] MEDS ORDERED: InsuLIN REG 1unit/0.01ml Soln (100units/ml) SC SCH (17:00)
[2023-09-20] MEDS ORDERED: ACCU-CHEK COMFORT CURVE STRIP VI SCH (17:00)
[2023-09-20 19:13] LABS: Base Excess -10.2 mmol/L (-2.0-2.0)
[2023-09-20] MEDS: methylPREDNISolone SOD SUCC 40 MG/ML VL IV SCH (22:53)
[2023-09-21] VITALS (21 sets, daily range): BP systolic 120–150; BP diastolic 54–68; PULSE 87–121; RESP 18; TEMP 98.1–98.2; O2SAT 96–100
[2023-09-21] MEDS: ACCU-CHEK COMFORT CURVE STRIP VI SCH ×5 (00:48→18:17)
[2023-09-21] MEDS: InsuLIN REG 1unit/0.01ml Soln (100units/ml) SC SCH ×3 (00:55→13:17)
[2023-09-21] MEDS: MIDAZOLAM DRIP 50 mg/50mL 50 ML IV SCH ×6 (01:50→18:18)
[2023-09-21] MEDS: IPRATROPIUM BROM 0.5 MG/2.5ML INH SOL NEB SCH ×6 (02:00→22:23)
[2023-09-21] MEDS: ALBUTEROL MEDNEB 2.5 mg/3ml NEB NEB SCH ×3 (02:00→11:50)
[2023-09-21 05:22] LABS: Basophils # (auto) 0 10 ^3/uL (0-0.2); Eosinophils # (auto) 0 10 ^3/uL (0-0.8); Hematocrit 21.9 % (36.0-46.0); Hemoglobin 7.3 g/dL (12.2-16.2); Lymphocytes # (auto) 0.1 10 ^3/uL (0.4-5.4); Lymphocytes % (auto) 1.3 % (10.0-50.0); Mean Corpuscular Hemoglobin 29.9 pg (28.0-32.0); Mean Corpuscular Hgb Conc. 33.2 g/dL (32.0-36.0); Mean Corpuscular Volume 90.1 fL (80.0-100.0); Monocytes # (auto) 0.2 10 ^3/uL (0-1.3); Monocytes % (auto) 2.4 % (0.0-12.0); Neutrophils # (auto) 8.1 10 ^3/uL (1.6-8.6); Neutrophils % (auto) 96.3 % (37.0-80.0); Red Blood Cells 2.44 10^6/uL (4.0-5.20); Red Cell Distribution Width 16.4 % (11.8-14.3); White Blood Cell 8.4 10^3/uL (4.4-10.8)
[2023-09-21 05:38] LABS: Alanine Aminotransferase 28 U/L (7-40); Albumin 3.8 g/dL (3.2-4.8); Alkaline Phosphatase 61 U/L (46-116); Anion Gap 14 (5-15); Aspartate Aminotransferase 16 U/L (13-40); BUN/Creatinine Ratio 11.8 (10.0-20.0); Calcium 7.9 mg/dL (8.7-10.4); Carbon Dioxide 19 mmol/L (20-30); Chloride 111 mmol/L (98-107); Glucose 158 mg/dL (74-106); Potassium 3.4 mmol/L (3.5-5.1); Sodium 144 mmol/L (136-145)
[2023-09-21 05:39] LABS: Bilirubin, Total 0.3 mg/dL (0.2-1.0); Total Protein 6.7 g/dL (5.7-8.2)
[2023-09-21 06:22] LABS: Blood Urea Nitrogen 69 mg/dL (9-23)
[2023-09-21] MEDS: HEPARIN SODIUM (PORCINE) 5000 UNITS/ML 1ML VIAL SC SCH ×3 (06:31→22:00)
[2023-09-21 06:45] LABS: Base Excess -7.3 mmol/L (-2.0-2.0)
[2023-09-21 08:56] LABS: Urine Bacteria NONE SEEN /hpf (None Seen); Urine Blood 1+ /uL (Negative); Urine Clarity HAZY (Clear); Urine Color Colorless (Yellow); Urine Mucus FEW (None Seen); Urine Protein, UAD 2+ (Negative); Urine Specific Gravity 1.011 (1.001-1.035); Urine Urobilinogen Normal (Negative); Urine WBC 18 /hpf (0 - 5); Urine pH 5.5 (5.0-8.0)
[2023-09-21 09:01] LABS: Protein, Urine 196.8 mg/dL (0.0-11.9)
[2023-09-21 09:04] LABS: Creatinine, Urine 62.77 mg/dL (30.0-125.0); Urine Protein/Creatinine Ratio 3.14
[2023-09-21] MEDS: cefTRIAXone 1GM/50ML D5W 50 ML IV SCH (09:48)
[2023-09-21] MEDS ORDERED: FUROSEMIDE 40 MG/4 ML VIAL IV SCH (10:00)
[2023-09-21] MEDS ORDERED: AZITHROMYCIN 500MG/ 250ML 250 ML IV SCH (10:00)
[2023-09-21] MEDS ORDERED: POTASSIUM CHL 20MEQ/100ML 100 ML IV ONE (10:45)
[2023-09-21] MEDS: PANTOPRAZOLE 40 MG/10 ML VIAL INJ IV SCH (10:58)
[2023-09-21] MEDS: methylPREDNISolone SOD SUCC 40 MG/ML VL IV SCH (10:58)
[2023-09-21] MEDS ORDERED: POTASSIUM EFFERVESENT TAB 25 MEQ GT ONE (11:15)
[2023-09-21] MEDS: fentaNYL Drip 2500mCg/250mlNS 250 ML IV SCH (12:56)
[2023-09-21] MEDS: FUROSEMIDE INJECTION 100 MG in D5W 5% 100 ML IV SCH (13:06)
[2023-09-21] MEDS ORDERED: SODIUM BICARBONATE 50ML VIAL 50 ML in D5W 5% 1,000 ML IV ONE (13:30)
[2023-09-21] MEDS ORDERED: DEXTROSE (50%) 50ML SYRG IV PRN (14:15)
[2023-09-21] MEDS ORDERED: ALBUTEROL MEDNEB 2.5 mg/3ml NEB ONE (14:18)
[2023-09-21] MEDS ORDERED: PROPOFOL 100 ML IV ONE (14:31)
[2023-09-21] MEDS: DOPamine 1600MCG/ML D5W 250 ML IV SCH (15:50)
[2023-09-21] MEDS: CALCIUM ACETATE 667 MG CAP NG SCH ×2 (16:27→22:00)
[2023-09-21 17:12] LABS: Basophils # (auto) 0 10 ^3/uL (0-0.2); Eosinophils # (auto) 0 10 ^3/uL (0-0.8); Lymphocytes # (auto) 0.1 10 ^3/uL (0.4-5.4); Mean Corpuscular Hgb Conc. 33.3 g/dL (32.0-36.0); Monocytes # (auto) 0.2 10 ^3/uL (0-1.3); Neutrophils % (auto) 96.8 % (37.0-80.0)
[2023-09-21 17:14] LABS: Basophils % (auto) 0.1 % (0.0-2.0); Hematocrit 20.5 % (36.0-46.0); Mean Corpuscular Hemoglobin 30.4 pg (28.0-32.0); Mean Corpuscular Volume 91.1 fL (80.0-100.0); Monocytes % (auto) 2.1 % (0.0-12.0); Neutrophils # (auto) 10.5 10 ^3/uL (1.6-8.6); Red Blood Cells 2.25 10^6/uL (4.0-5.20); Red Cell Distribution Width 15.9 % (11.8-14.3); White Blood Cell 10.9 10^3/uL (4.4-10.8)
[2023-09-21 17:18] LABS: Hemoglobin 6.8 g/dL (12.2-16.2)
[2023-09-21] MEDS: ALBUTEROL MEDNEB 2.5 mg/3ml NEB NEB PRN ×2 (19:29→22:23)
[2023-09-21 22:35] LABS: Hematocrit 23.5 % (36.0-46.0); Hemoglobin 7.9 g/dL (12.2-16.2)
[2023-09-22] VITALS (45 sets, daily range): BP systolic 137–166; BP diastolic 50–71; PULSE 63–98; RESP 13–18; TEMP 94.5–97.9; O2SAT 64–100
[2023-09-22] MEDS: InsuLIN REG 1unit/0.01ml Soln (100units/ml) SC SCH ×5 (00:48→23:51)
[2023-09-22] MEDS: IPRATROPIUM BROM 0.5 MG/2.5ML INH SOL NEB SCH ×6 (02:22→22:31)
[2023-09-22] MEDS: ALBUTEROL MEDNEB 2.5 mg/3ml NEB NEB PRN ×6 (02:22→22:30)
[2023-09-22] MEDS: MIDAZOLAM DRIP 50 mg/50mL 50 ML IV SCH ×8 (04:15→21:30)
[2023-09-22] MEDS: DOPamine 1600MCG/ML D5W 250 ML IV SCH (05:04)
[2023-09-22 05:12] LABS: Basophils # (auto) 0 10 ^3/uL (0-0.2); Eosinophils # (auto) 0 10 ^3/uL (0-0.8); Hemoglobin 7.7 g/dL (12.2-16.2); Lymphocytes # (auto) 0.5 10 ^3/uL (0.4-5.4); Monocytes # (auto) 0.6 10 ^3/uL (0-1.3); Nucleated Red Blood Cells % 0.1 %
[2023-09-22 05:13] LABS: Basophils % (auto) 0.1 % (0.0-2.0); Eosinophils % (auto) 0.1 % (0.0-7.0); Hematocrit 23.3 % (36.0-46.0); Lymphocytes % (auto) 4.4 % (10.0-50.0); Mean Corpuscular Hemoglobin 29.2 pg (28.0-32.0); Mean Corpuscular Hgb Conc. 33.1 g/dL (32.0-36.0); Mean Corpuscular Volume 88.1 fL (80.0-100.0); Monocytes % (auto) 5.3 % (0.0-12.0); Neutrophils # (auto) 10.1 10 ^3/uL (1.6-8.6); Neutrophils % (auto) 90.1 % (37.0-80.0); Red Blood Cells 2.64 10^6/uL (4.0-5.20); White Blood Cell 11.2 10^3/uL (4.4-10.8)
[2023-09-22 05:32] LABS: Alanine Aminotransferase 22 U/L (7-40); Albumin 3.5 g/dL (3.2-4.8); Alkaline Phosphatase 51 U/L (46-116); Calcium 7.5 mg/dL (8.7-10.4); Chloride 107 mmol/L (98-107)
[2023-09-22 05:33] LABS: Anion Gap 12 (5-15); Aspartate Aminotransferase 8 U/L (13-40); BUN/Creatinine Ratio 11.6 (10.0-20.0); Bilirubin, Total 0.2 mg/dL (0.2-1.0); Blood Urea Nitrogen 67 mg/dL (9-23); Carbon Dioxide 21 mmol/L (20-30); Glucose 136 mg/dL (74-106); Magnesium 1.3 mg/dL (1.6-2.6); Potassium 3.3 mmol/L (3.5-5.1); Sodium 140 mmol/L (136-145)
[2023-09-22] MEDS: HEPARIN SODIUM (PORCINE) 5000 UNITS/ML 1ML VIAL SC SCH ×3 (05:38→21:56)
[2023-09-22] MEDS: ACCU-CHEK COMFORT CURVE STRIP VI SCH ×7 (05:39→23:51)
[2023-09-22] MEDS: CALCIUM ACETATE 667 MG CAP NG SCH ×3 (06:00→21:55)
[2023-09-22 07:17] LABS: Base Excess -3.8 mmol/L (-2.0-2.0)
[2023-09-22] MEDS ORDERED: POTASSIUM EFFERVESENT TAB 25 MEQ NG ONE (09:00)
[2023-09-22 09:13] LABS: Hepatitis B Surface Antigen Negative (Negative)
[2023-09-22 09:35] LABS: Hepatitis C Antibody Negative (Negative)
[2023-09-22] MEDS: PANTOPRAZOLE 40 MG/10 ML VIAL INJ IV SCH (10:48)
[2023-09-22] MEDS: cefTRIAXone 1GM/50ML D5W 50 ML IV SCH (10:48)
[2023-09-22] MEDS ORDERED: cloNIDine HCL 0.1 MG TAB PO ONE (12:15)
[2023-09-22] MEDS: fentaNYL Drip 2500mCg/250mlNS 250 ML IV SCH ×2 (12:30→20:04)
[2023-09-22] MEDS: cloNIDine HCL 0.1 MG TAB PO SCH ×2 (14:10→21:55)
[2023-09-22] MEDS ORDERED: DOPamine 1600MCG/ML D5W 250 ML IV SCH (15:00)
[2023-09-22] MEDS ORDERED: VANCOMYCIN 1GM/250ML 250 ML IV SCH (15:00)
[2023-09-22] MEDS: BUMETANIDE INJECTION 12.5 MG in GIVE UN-DILUTED 0 ML IV SCH (16:26)
[2023-09-23] VITALS (114 sets, daily range): BP systolic 113–193; BP diastolic 48–119; PULSE 63–111; RESP 13–22; TEMP 96.4–99; O2SAT 92–99
[2023-09-23] MEDS: MIDAZOLAM DRIP 50 mg/50mL 50 ML IV SCH ×7 (00:04→23:35)
[2023-09-23] MEDS: LABETALOL HCL 5 MG/ML 4ML SYRINGE IV PRN ×2 (00:35→04:47)
[2023-09-23] MEDS: ALBUTEROL MEDNEB 2.5 mg/3ml NEB NEB PRN ×4 (02:16→18:37)
[2023-09-23] MEDS: IPRATROPIUM BROM 0.5 MG/2.5ML INH SOL NEB SCH ×6 (02:16→22:15)
[2023-09-23 04:11] LABS: Basophils # (auto) 0 10 ^3/uL (0-0.2); Basophils % (auto) 0.1 % (0.0-2.0); Eosinophils # (auto) 0.1 10 ^3/uL (0-0.8); Eosinophils % (auto) 0.9 % (0.0-7.0); Hematocrit 25.8 % (36.0-46.0); Hemoglobin 8.6 g/dL (12.2-16.2); Lymphocytes # (auto) 0.7 10 ^3/uL (0.4-5.4); Lymphocytes % (auto) 6.6 % (10.0-50.0); Mean Corpuscular Hgb Conc. 33.6 g/dL (32.0-36.0); Mean Corpuscular Volume 89.3 fL (80.0-100.0); Monocytes # (auto) 0.7 10 ^3/uL (0-1.3); Monocytes % (auto) 6.4 % (0.0-12.0); Red Blood Cells 2.88 10^6/uL (4.0-5.20); White Blood Cell 10.4 10^3/uL (4.4-10.8)
[2023-09-23 04:37] LABS: Alanine Aminotransferase 20 U/L (7-40); Albumin 3.6 g/dL (3.2-4.8); Alkaline Phosphatase 58 U/L (46-116); Anion Gap 11 (5-15); Aspartate Aminotransferase < 8 U/L (13-40); BUN/Creatinine Ratio 11.9 (10.0-20.0); Bilirubin, Total 0.3 mg/dL (0.2-1.0); Blood Urea Nitrogen 69 mg/dL (9-23); Calcium 7.7 mg/dL (8.7-10.4); Carbon Dioxide 23 mmol/L (20-30); Chloride 107 mmol/L (98-107); Glucose 107 mg/dL (74-106); Potassium 3.8 mmol/L (3.5-5.1); Sodium 141 mmol/L (136-145); Total Protein 6.3 g/dL (5.7-8.2)
[2023-09-23] MEDS: ACCU-CHEK COMFORT CURVE STRIP VI SCH ×3 (05:55→17:56)
[2023-09-23] MEDS: InsuLIN REG 1unit/0.01ml Soln (100units/ml) SC SCH ×3 (05:57→18:05)
[2023-09-23] MEDS: CALCIUM ACETATE 667 MG CAP NG SCH ×3 (06:17→21:09)
[2023-09-23] MEDS: cloNIDine HCL 0.1 MG TAB PO SCH (06:18)
[2023-09-23] MEDS: HEPARIN SODIUM (PORCINE) 5000 UNITS/ML 1ML VIAL SC SCH ×3 (06:18→21:09)
[2023-09-23] MEDS: BUMETANIDE INJECTION 12.5 MG in GIVE UN-DILUTED 0 ML IV SCH (06:34)
[2023-09-23] MEDS ORDERED: LABETALOL HCL 5 MG/ML 4ML SYRINGE IV ONE (09:15)
[2023-09-23] MEDS: PANTOPRAZOLE 40 MG/10 ML VIAL INJ IV SCH (09:36)
[2023-09-23] MEDS: cefTRIAXone 1GM/50ML D5W 50 ML IV SCH (09:37)
[2023-09-23] MEDS ORDERED: MAGNESIUM SULFATE 1GM/100ML 100 ML IV ONE (10:15)
[2023-09-23] MEDS: NITROGLYCERIN 50MG/250ML 250 ML IV SCH (12:30)
[2023-09-23] MEDS: cloNIDine 0.3 mg/24hr 7DAY PATCH TD SCH (14:48)
[2023-09-23] MEDS: Nepro With Carb Steady 1 Liter Bottle GT SCH (16:45)
[2023-09-23] MEDS ORDERED: LACTULOSE 20Gm/30ML SOLN PO SCH (18:00)
[2023-09-23] MEDS: HYDROmorphone HCL 2 MG/ML VL/or syr IV PRN (18:15)
[2023-09-23] MEDS ORDERED: LACTULOSE 20Gm/30ML SOLN PO PRN (19:30)
[2023-09-23] MEDS ORDERED: PIPERACILLIN-TAZOB 3.375GM 100 ML IV SCH (22:00)
[2023-09-24] VITALS (110 sets, daily range): BP systolic 138–194; BP diastolic 47–92; PULSE 75–106; RESP 12–25; TEMP 97–99.1; O2SAT 92–98
[2023-09-24] MEDS: ACCU-CHEK COMFORT CURVE STRIP VI SCH ×5 (00:04→23:57)
[2023-09-24] MEDS: LABETALOL HCL 5 MG/ML 4ML SYRINGE IV PRN ×3 (00:06→13:09)
[2023-09-24] MEDS: InsuLIN REG 1unit/0.01ml Soln (100units/ml) SC SCH ×4 (00:06→18:29)
[2023-09-24] MEDS: IPRATROPIUM BROM 0.5 MG/2.5ML INH SOL NEB SCH ×6 (02:47→22:18)
[2023-09-24] MEDS: MIDAZOLAM DRIP 50 mg/50mL 50 ML IV SCH ×7 (02:55→22:45)
[2023-09-24] MEDS: BUMETANIDE INJECTION 12.5 MG in GIVE UN-DILUTED 0 ML IV SCH (03:24)
[2023-09-24 04:03] LABS: Alanine Aminotransferase 18 U/L (7-40); Albumin 3.7 g/dL (3.2-4.8); Alkaline Phosphatase 54 U/L (46-116); Anion Gap 13 (5-15); Aspartate Aminotransferase 11 U/L (13-40); BUN/Creatinine Ratio 11.8 (10.0-20.0); Blood Urea Nitrogen 69 mg/dL (9-23); Calcium 7.8 mg/dL (8.5-10.1); Carbon Dioxide 22 mmol/L (20-30); Chloride 106 mmol/L (98-107); Glucose 148 mg/dL (74-106); Sodium 141 mmol/L (136-145)
[2023-09-24 04:04] LABS: Bilirubin, Total 0.3 mg/dL (0.2-1.0); Total Protein 6.3 g/dL (5.7-8.2)
[2023-09-24 04:32] LABS: Basophils # (auto) 0 10 ^3/uL (0-0.2); Eosinophils # (auto) 0 10 ^3/uL (0-0.8); Eosinophils % (auto) 0.2 % (0.0-7.0); Hemoglobin 8.4 g/dL (12.2-16.2); Lymphocytes # (auto) 0.4 10 ^3/uL (0.4-5.4); Monocytes # (auto) 0.8 10 ^3/uL (0-1.3); Neutrophils # (auto) 9.9 10 ^3/uL (1.6-8.6); Neutrophils % (auto) 89.3 % (37.0-80.0); White Blood Cell 11.1 10^3/uL (4.4-10.8)
[2023-09-24 04:34] LABS: Hematocrit 25.2 % (36.0-46.0); Lymphocytes % (auto) 3.6 % (10.0-50.0); Mean Corpuscular Hemoglobin 29.9 pg (28.0-32.0); Mean Corpuscular Hgb Conc. 33.4 g/dL (32.0-36.0); Mean Corpuscular Volume 89.5 fL (80.0-100.0); Monocytes % (auto) 6.9 % (0.0-12.0); Red Blood Cells 2.82 10^6/uL (4.0-5.20); Red Cell Distribution Width 15.7 % (11.8-14.3)
[2023-09-24] MEDS: CALCIUM ACETATE 667 MG CAP NG SCH ×3 (05:14→22:06)
[2023-09-24] MEDS: HEPARIN SODIUM (PORCINE) 5000 UNITS/ML 1ML VIAL SC SCH ×3 (05:25→22:06)
[2023-09-24] MEDS: ALBUTEROL MEDNEB 2.5 mg/3ml NEB NEB PRN ×5 (05:58→22:18)
[2023-09-24] MEDS: NITROGLYCERIN 50MG/250ML 250 ML IV SCH (06:50)
[2023-09-24 07:09] LABS: Base Excess -3.9 mmol/L (-2.0-2.0)
[2023-09-24] MEDS: cefTRIAXone 1GM/50ML D5W 50 ML IV SCH (08:53)
[2023-09-24] MEDS: HYDROmorphone HCL 2 MG/ML VL/or syr IV PRN (08:55)
[2023-09-24] MEDS: PANTOPRAZOLE 40 MG/10 ML VIAL INJ IV SCH (10:07)
[2023-09-24] MEDS: fentaNYL Drip 2500mCg/250mlNS 250 ML IV SCH (12:30)
[2023-09-24] MEDS: niCARdipine 50 MG in SODIUM CHL 0.9% 230 ML IV SCH ×2 (17:25→22:51)
[2023-09-25] VITALS (108 sets, daily range): BP systolic 110–156; BP diastolic 4–87; PULSE 68–100; RESP 11–23; TEMP 97.8–99.3; O2SAT 93–100
[2023-09-25] MEDS: InsuLIN REG 1unit/0.01ml Soln (100units/ml) SC SCH ×5 (00:02→23:30)
[2023-09-25] MEDS: LABETALOL HCL 5 MG/ML 4ML SYRINGE IV PRN (00:24)
[2023-09-25] MEDS: niCARdipine 50 MG in SODIUM CHL 0.9% 230 ML IV SCH ×6 (01:20→23:31)
[2023-09-25] MEDS: MIDAZOLAM DRIP 50 mg/50mL 50 ML IV SCH ×7 (02:15→22:15)
[2023-09-25] MEDS: IPRATROPIUM BROM 0.5 MG/2.5ML INH SOL NEB SCH ×6 (02:35→22:19)
[2023-09-25] MEDS: ALBUTEROL MEDNEB 2.5 mg/3ml NEB NEB PRN ×6 (02:35→22:19)
[2023-09-25] MEDS: BUMETANIDE INJECTION 12.5 MG in GIVE UN-DILUTED 0 ML IV SCH ×2 (04:05→14:58)
[2023-09-25 04:22] LABS: Basophils # (auto) 0 10 ^3/uL (0-0.2); Basophils % (auto) 0.1 % (0.0-2.0); Eosinophils # (auto) 0.1 10 ^3/uL (0-0.8); Eosinophils % (auto) 0.5 % (0.0-7.0); Hematocrit 27.3 % (36.0-46.0); Hemoglobin 8.9 g/dL (12.2-16.2); Lymphocytes # (auto) 0.5 10 ^3/uL (0.4-5.4); Lymphocytes % (auto) 3.3 % (10.0-50.0); Mean Corpuscular Hemoglobin 28.7 pg (28.0-32.0); Mean Corpuscular Hgb Conc. 32.4 g/dL (32.0-36.0); Mean Corpuscular Volume 88.5 fL (80.0-100.0); Monocytes % (auto) 6.4 % (0.0-12.0); Neutrophils # (auto) 13.3 10 ^3/uL (1.6-8.6); Neutrophils % (auto) 89.7 % (37.0-80.0); Nucleated Red Blood Cells % 0.1 %; Red Blood Cells 3.09 10^6/uL (4.0-5.20); Red Cell Distribution Width 15.5 % (11.8-14.3); White Blood Cell 14.8 10^3/uL (4.4-10.8)
[2023-09-25 04:33] LABS: Alanine Aminotransferase 17 U/L (7-40); Alkaline Phosphatase 61 U/L (46-116); Anion Gap 15 (5-15); Aspartate Aminotransferase 13 U/L (13-40); BUN/Creatinine Ratio 13.2 (10.0-20.0); Blood Urea Nitrogen 78 mg/dL (9-23); Calcium 8.2 mg/dL (8.7-10.4); Carbon Dioxide 22 mmol/L (20-30); Chloride 103 mmol/L (98-107); Glucose 117 mg/dL (74-106); Potassium 3.7 mmol/L (3.5-5.1); Sodium 140 mmol/L (136-145)
[2023-09-25 04:34] LABS: Bilirubin, Total 0.3 mg/dL (0.2-1.0); Total Protein 6.9 g/dL (5.7-8.2)
[2023-09-25] MEDS: ACCU-CHEK COMFORT CURVE STRIP VI SCH ×4 (05:36→23:30)
[2023-09-25] MEDS: CALCIUM ACETATE 667 MG CAP NG SCH ×3 (05:36→21:52)
[2023-09-25] MEDS: HEPARIN SODIUM (PORCINE) 5000 UNITS/ML 1ML VIAL SC SCH ×3 (05:38→21:53)
[2023-09-25] MEDS: cefTRIAXone 1GM/50ML D5W 50 ML IV SCH (09:02)
[2023-09-25] MEDS: PANTOPRAZOLE 40 MG/10 ML VIAL INJ IV SCH (09:55)
[2023-09-25 11:04] LABS: Base Excess -4.7 mmol/L (-2.0-2.0)
[2023-09-25] MEDS: fentaNYL Drip 2500mCg/250mlNS 250 ML IV SCH (12:30)
[2023-09-25] MEDS: Nepro With Carb Steady 1 Liter Bottle GT SCH (18:07)
[2023-09-26] VITALS (108 sets, daily range): BP systolic 114–157; BP diastolic 39–67; PULSE 68–107; RESP 11–22; TEMP 96.6–99; O2SAT 95–100
[2023-09-26] MEDS: HYDROcodone-ACET 5/325MG TAB PO PRN ×2 (00:46→22:12)
[2023-09-26] MEDS: MIDAZOLAM DRIP 50 mg/50mL 50 ML IV SCH ×7 (01:35→21:35)
[2023-09-26] MEDS: IPRATROPIUM BROM 0.5 MG/2.5ML INH SOL NEB SCH ×6 (02:19→22:23)
[2023-09-26] MEDS: ALBUTEROL MEDNEB 2.5 mg/3ml NEB NEB PRN ×6 (02:19→22:23)
[2023-09-26] MEDS: HEPARIN SODIUM (PORCINE) 5000 UNITS/ML 1ML VIAL SC SCH ×3 (05:31→22:16)
[2023-09-26] MEDS: CALCIUM ACETATE 667 MG CAP NG SCH ×3 (05:31→22:12)
[2023-09-26] MEDS: InsuLIN REG 1unit/0.01ml Soln (100units/ml) SC SCH ×3 (05:31→18:00)
[2023-09-26] MEDS: ACCU-CHEK COMFORT CURVE STRIP VI SCH ×3 (05:32→18:28)
[2023-09-26] MEDS: niCARdipine 50 MG in SODIUM CHL 0.9% 230 ML IV SCH (07:02)
[2023-09-26 07:59] LABS: Basophils # (auto) 0 10 ^3/uL (0-0.2); Lymphocytes # (auto) 0.5 10 ^3/uL (0.4-5.4); Red Cell Distribution Width 15.4 % (11.8-14.3)
[2023-09-26 08:00] LABS: Eosinophils # (auto) 0.1 10 ^3/uL (0-0.8); Hematocrit 24.4 % (36.0-46.0); Lymphocytes % (auto) 3.9 % (10.0-50.0); Mean Corpuscular Hemoglobin 29.4 pg (28.0-32.0); Mean Corpuscular Hgb Conc. 32.8 g/dL (32.0-36.0); Mean Corpuscular Volume 89.8 fL (80.0-100.0); Monocytes # (auto) 0.9 10 ^3/uL (0-1.3); Monocytes % (auto) 6.7 % (0.0-12.0); Neutrophils # (auto) 11.3 10 ^3/uL (1.6-8.6); Neutrophils % (auto) 88.4 % (37.0-80.0); Red Blood Cells 2.71 10^6/uL (4.0-5.20); White Blood Cell 12.8 10^3/uL (4.4-10.8)
[2023-09-26 08:08] LABS: Chloride 106 mmol/L (98-107); Potassium 3.8 mmol/L (3.5-5.1); Sodium 142 mmol/L (136-145)
[2023-09-26 08:09] LABS: Anion Gap 12 (5-15); Carbon Dioxide 24 mmol/L (20-30)
[2023-09-26 08:10] LABS: Calcium 8.1 mg/dL (8.5-10.1)
[2023-09-26 08:14] LABS: BUN/Creatinine Ratio 13.8 (10.0-20.0); Glucose 122 mg/dL (74-106)
[2023-09-26 08:23] LABS: Blood Urea Nitrogen 81 mg/dL (9-23)
[2023-09-26 08:52] LABS: Base Excess -3.2 mmol/L (-2.0-2.0)
[2023-09-26] MEDS: cefTRIAXone 1GM/50ML D5W 50 ML IV SCH (09:12)
[2023-09-26] MEDS: PANTOPRAZOLE 40 MG/10 ML VIAL INJ IV SCH (09:33)
[2023-09-26] MEDS: fentaNYL Drip 2500mCg/250mlNS 250 ML IV SCH (12:30)
[2023-09-26] MEDS ORDERED: amLODIPine BESYLATE 5 MG TAB PO ONE (12:30)
[2023-09-26] MEDS: BUMETANIDE INJECTION 12.5 MG in GIVE UN-DILUTED 0 ML IV SCH (14:45)
[2023-09-26] MEDS: metOLazone 5 MG TAB PO SCH (15:26)
[2023-09-26] MEDS: METOPROLOL TARTRATE 50 MG TAB PO SCH ×2 (16:26→22:12)
[2023-09-26] MEDS: Nepro With Carb Steady 1 Liter Bottle GT SCH (17:03)
[2023-09-27] VITALS (107 sets, daily range): BP systolic 123–177; BP diastolic 37–86; PULSE 68–97; RESP 13–31; TEMP 94.8–99.3; O2SAT 98–100
[2023-09-27] MEDS: ACCU-CHEK COMFORT CURVE STRIP VI SCH ×5 (00:13→23:31)
[2023-09-27] MEDS: InsuLIN REG 1unit/0.01ml Soln (100units/ml) SC SCH ×5 (00:13→23:33)
[2023-09-27] MEDS: MIDAZOLAM DRIP 50 mg/50mL 50 ML IV SCH ×7 (00:55→22:13)
[2023-09-27] MEDS: IPRATROPIUM BROM 0.5 MG/2.5ML INH SOL NEB SCH ×6 (02:12→22:20)
[2023-09-27] MEDS: ALBUTEROL MEDNEB 2.5 mg/3ml NEB NEB PRN ×4 (02:12→14:34)
[2023-09-27] MEDS: BUMETANIDE INJECTION 12.5 MG in GIVE UN-DILUTED 0 ML IV SCH (03:50)
[2023-09-27 04:15] LABS: Basophils # (auto) 0 10 ^3/uL (0-0.2); Eosinophils # (auto) 0.2 10 ^3/uL (0-0.8); Neutrophils # (auto) 9.3 10 ^3/uL (1.6-8.6)
[2023-09-27 04:19] LABS: Basophils % (auto) 0.1 % (0.0-2.0); Hematocrit 23.4 % (36.0-46.0); Hemoglobin 7.6 g/dL (12.2-16.2); Lymphocytes # (auto) 0.6 10 ^3/uL (0.4-5.4); Lymphocytes % (auto) 5.9 % (10.0-50.0); Mean Corpuscular Hemoglobin 29.1 pg (28.0-32.0); Mean Corpuscular Hgb Conc. 32.4 g/dL (32.0-36.0); Mean Corpuscular Volume 89.7 fL (80.0-100.0); Monocytes # (auto) 0.8 10 ^3/uL (0-1.3); Monocytes % (auto) 7.4 % (0.0-12.0); Neutrophils % (auto) 84.6 % (37.0-80.0); Red Blood Cells 2.61 10^6/uL (4.0-5.20); Red Cell Distribution Width 15.5 % (11.8-14.3)
[2023-09-27 04:26] LABS: Anion Gap 12 (5-15); Carbon Dioxide 26 mmol/L (20-30); Chloride 105 mmol/L (98-107); Potassium 4.1 mmol/L (3.5-5.1); Sodium 143 mmol/L (136-145)
[2023-09-27 04:32] LABS: Glucose 59 mg/dL (74-106)
[2023-09-27 04:42] LABS: Blood Urea Nitrogen 92 mg/dL (9-23)
[2023-09-27] MEDS: HEPARIN SODIUM (PORCINE) 5000 UNITS/ML 1ML VIAL SC SCH ×3 (06:27→22:12)
[2023-09-27] MEDS: CALCIUM ACETATE 667 MG CAP NG SCH ×3 (06:27→22:11)
[2023-09-27 08:14] LABS: Base Excess -4.8 mmol/L (-2.0-2.0)
[2023-09-27] MEDS: cefTRIAXone 1GM/50ML D5W 50 ML IV SCH (08:54)
[2023-09-27] MEDS: PANTOPRAZOLE 40 MG/10 ML VIAL INJ IV SCH (10:23)
[2023-09-27] MEDS: amLODIPine BESYLATE 5 MG TAB PO SCH (10:23)
[2023-09-27] MEDS: METOPROLOL TARTRATE 50 MG TAB PO SCH ×2 (10:24→22:12)
[2023-09-27] MEDS: metOLazone 5 MG TAB PO SCH (10:24)
[2023-09-27] MEDS: HYDROcodone-ACET 5/325MG TAB PO PRN (10:55)
[2023-09-27] MEDS: fentaNYL Drip 2500mCg/250mlNS 250 ML IV SCH (12:30)
[2023-09-27] MEDS: hydrALAZINE HCL 25 MG TAB PO SCH ×2 (16:46→22:11)
[2023-09-28] VITALS (96 sets, daily range): BP systolic 98–178; BP diastolic 41–115; PULSE 64–98; RESP 13–33; TEMP 96.4–99.3; O2SAT 94–100
[2023-09-28] MEDS: hydrALAZINE HCL 20 MG/ML VL IV PRN ×2 (00:11→05:54)
[2023-09-28] MEDS: MIDAZOLAM DRIP 50 mg/50mL 50 ML IV SCH ×6 (00:15→13:52)
[2023-09-28] MEDS: IPRATROPIUM BROM 0.5 MG/2.5ML INH SOL NEB SCH ×6 (02:15→22:04)
[2023-09-28 04:19] LABS: Basophils # (auto) 0 10 ^3/uL (0-0.2); Basophils % (auto) 0.2 % (0.0-2.0); Eosinophils # (auto) 0.3 10 ^3/uL (0-0.8); Eosinophils % (auto) 1.9 % (0.0-7.0); Hematocrit 27.1 % (36.0-46.0); Hemoglobin 8.9 g/dL (12.2-16.2); Lymphocytes # (auto) 0.5 10 ^3/uL (0.4-5.4); Lymphocytes % (auto) 3.8 % (10.0-50.0); Mean Corpuscular Hemoglobin 29.8 pg (28.0-32.0); Mean Corpuscular Hgb Conc. 33.1 g/dL (32.0-36.0); Monocytes % (auto) 7.3 % (0.0-12.0); Neutrophils # (auto) 12.1 10 ^3/uL (1.6-8.6); Neutrophils % (auto) 86.8 % (37.0-80.0); Red Blood Cells 3.01 10^6/uL (4.0-5.20); Red Cell Distribution Width 15.2 % (11.8-14.3); White Blood Cell 13.9 10^3/uL (4.4-10.8)
[2023-09-28 04:30] LABS: Alanine Aminotransferase 13 U/L (7-40); Albumin 3.9 g/dL (3.2-4.8); Alkaline Phosphatase 63 U/L (46-116); Anion Gap 12 (5-15); Aspartate Aminotransferase 11 U/L (13-40); BUN/Creatinine Ratio 15.2 (10.0-20.0); Bilirubin, Total 0.2 mg/dL (0.2-1.0); Calcium 8.3 mg/dL (8.7-10.4); Carbon Dioxide 26 mmol/L (20-30); Chloride 102 mmol/L (98-107); Glucose 103 mg/dL (74-106); Magnesium 1.8 mg/dL (1.6-2.6); Sodium 140 mmol/L (136-145)
[2023-09-28 04:48] LABS: Blood Urea Nitrogen 94 mg/dL (9-23)
[2023-09-28] MEDS: CALCIUM ACETATE 667 MG CAP NG SCH ×3 (05:53→22:47)
[2023-09-28] MEDS: hydrALAZINE HCL 25 MG TAB PO SCH ×3 (05:54→22:00)
[2023-09-28] MEDS: InsuLIN REG 1unit/0.01ml Soln (100units/ml) SC SCH ×3 (06:00→16:43)
[2023-09-28] MEDS: HEPARIN SODIUM (PORCINE) 5000 UNITS/ML 1ML VIAL SC SCH ×3 (06:03→22:37)
[2023-09-28] MEDS: ACCU-CHEK COMFORT CURVE STRIP VI SCH ×3 (06:03→16:43)
[2023-09-28] MEDS: BUMETANIDE INJECTION 12.5 MG in GIVE UN-DILUTED 0 ML IV SCH (06:13)
[2023-09-28] MEDS: ALBUTEROL MEDNEB 2.5 mg/3ml NEB NEB PRN ×5 (06:16→22:04)
[2023-09-28 09:16] LABS: Base Excess -0.4 mmol/L (-2.0-2.0)
[2023-09-28] MEDS: cefTRIAXone 1GM/50ML D5W 50 ML IV SCH (09:45)
[2023-09-28] MEDS: PANTOPRAZOLE 40 MG/10 ML VIAL INJ IV SCH (09:46)
[2023-09-28] MEDS: metOLazone 5 MG TAB PO SCH (09:46)
[2023-09-28] MEDS: METOPROLOL TARTRATE 50 MG TAB PO SCH ×2 (09:47→22:43)
[2023-09-28] MEDS: amLODIPine BESYLATE 5 MG TAB PO SCH (09:47)
[2023-09-28] MEDS: fentaNYL Drip 2500mCg/250mlNS 250 ML IV SCH (09:48)
[2023-09-28] MEDS ORDERED: BUMETANIDE 2.5mg/10ml (0.25 mg/ml) INJ IV SCH (10:00)
[2023-09-28 15:08] LABS: Base Excess 0.3 mmol/L (-2.0-2.0)
[2023-09-28 17:17] LABS: Chloride 102 mmol/L (98-107); Potassium 3.8 mmol/L (3.5-5.1); Sodium 140 mmol/L (136-145)
[2023-09-28 17:18] LABS: Anion Gap 11 (5-15); Carbon Dioxide 27 mmol/L (20-30)
[2023-09-28 17:19] LABS: Calcium 8.5 mg/dL (8.7-10.4)
[2023-09-28 17:23] LABS: BUN/Creatinine Ratio 14.8 (10.0-20.0); Glucose 127 mg/dL (74-106)
[2023-09-28 17:33] LABS: Blood Urea Nitrogen 93 mg/dL (9-23)
[2023-09-29] VITALS (38 sets, daily range): BP systolic 109–164; BP diastolic 25–79; PULSE 60–89; RESP 12–20; TEMP 97.6–98.8; O2SAT 90–100
[2023-09-29] MEDS: ACCU-CHEK COMFORT CURVE STRIP VI SCH ×4 (00:32→17:25)
[2023-09-29] MEDS: InsuLIN REG 1unit/0.01ml Soln (100units/ml) SC SCH ×4 (00:32→17:25)
[2023-09-29] MEDS: ALBUTEROL MEDNEB 2.5 mg/3ml NEB NEB PRN ×4 (02:15→14:12)
[2023-09-29] MEDS: IPRATROPIUM BROM 0.5 MG/2.5ML INH SOL NEB SCH ×5 (02:15→18:18)
[2023-09-29] MEDS: hydrALAZINE HCL 20 MG/ML VL IV PRN (02:25)
[2023-09-29 05:19] LABS: Calcium 8.1 mg/dL (8.7-10.4)
[2023-09-29 05:24] LABS: Hematocrit 27.1 % (36.0-46.0); Hemoglobin 8.9 g/dL (12.2-16.2); Mean Corpuscular Hemoglobin 29.7 pg (28.0-32.0); Mean Corpuscular Hgb Conc. 32.8 g/dL (32.0-36.0); Mean Corpuscular Volume 90.7 fL (80.0-100.0); Red Blood Cells 2.99 10^6/uL (4.0-5.20); Red Cell Distribution Width 15.1 % (11.8-14.3); White Blood Cell 9.6 10^3/uL (4.4-10.8)
[2023-09-29 05:25] LABS: BUN/Creatinine Ratio 15.8 (10.0-20.0); Glucose 109 mg/dL (74-106)
[2023-09-29] MEDS: hydrALAZINE HCL 25 MG TAB PO SCH ×3 (05:29→20:47)
[2023-09-29] MEDS: CALCIUM ACETATE 667 MG CAP NG SCH ×3 (05:29→20:47)
[2023-09-29] MEDS: HEPARIN SODIUM (PORCINE) 5000 UNITS/ML 1ML VIAL SC SCH ×3 (05:34→20:48)
[2023-09-29 05:43] LABS: Chloride 103 mmol/L (98-107); Potassium 3.6 mmol/L (3.5-5.1); Sodium 141 mmol/L (136-145)
[2023-09-29 05:44] LABS: Blood Urea Nitrogen 99 mg/dL (9-23)
[2023-09-29 05:52] LABS: Band Neutrophils % (manual) 0; Basophils % (manual) 0 (0.0-2.0); Blast Cells 0; Metamyelocytes % 0; Promyelocytes % 0; Reactive Lymphocytes 0
[2023-09-29 06:23] LABS: Anion Gap 12 (5-15); Carbon Dioxide 26 mmol/L (20-30)
[2023-09-29] MEDS: metOLazone 5 MG TAB PO SCH (10:00)
[2023-09-29] MEDS: amLODIPine BESYLATE 5 MG TAB PO SCH (10:06)
[2023-09-29] MEDS: METOPROLOL TARTRATE 50 MG TAB PO SCH ×2 (10:06→20:47)
[2023-09-29] MEDS: PANTOPRAZOLE 40 MG/10 ML VIAL INJ IV SCH (10:06)
[2023-09-29] MEDS: cefTRIAXone 1GM/50ML D5W 50 ML IV SCH (10:07)
[2023-09-29 10:13] LABS: Eosinophils % (manual) 2 (0-7); Lymphocytes % (manual) 8 (10.0-50.0); Monocytes % (manual) 3 (0-12); Myelocytes % 1; Platelet Estimate Adequate
[2023-09-29 11:07] LABS: Base Excess -0.1 mmol/L (-2.0-2.0)
[2023-09-29] MEDS: ALBUTEROL MEDNEB 2.5 mg/3ml NEB NEB SCH (18:18)
[2023-09-30] VITALS (25 sets, daily range): BP systolic 124–164; BP diastolic 44–103; PULSE 62–73; RESP 14–21; TEMP 97.5–98.3; O2SAT 89–100
[2023-09-30] MEDS: ACCU-CHEK COMFORT CURVE STRIP VI SCH ×5 (00:03→23:31)
[2023-09-30] MEDS: CALCIUM ACETATE 667 MG CAP NG SCH ×3 (04:35→21:50)
[2023-09-30] MEDS: hydrALAZINE HCL 25 MG TAB PO SCH ×3 (04:35→21:49)
[2023-09-30] MEDS: InsuLIN REG 1unit/0.01ml Soln (100units/ml) SC SCH ×5 (04:42→23:30)
[2023-09-30] MEDS: HEPARIN SODIUM (PORCINE) 5000 UNITS/ML 1ML VIAL SC SCH ×3 (04:42→22:03)
[2023-09-30 05:47] LABS: Anion Gap 14 (5-15); Carbon Dioxide 24 mmol/L (20-30); Chloride 101 mmol/L (98-107); Potassium 3.7 mmol/L (3.5-5.1); Sodium 139 mmol/L (136-145)
[2023-09-30 05:49] LABS: Calcium 8.7 mg/dL (8.5-10.1)
[2023-09-30 05:53] LABS: BUN/Creatinine Ratio 14.2 (10.0-20.0); Glucose 89 mg/dL (74-106)
[2023-09-30 06:31] LABS: Blood Urea Nitrogen 87 mg/dL (9-23)
[2023-09-30] MEDS: IPRATROPIUM BROM 0.5 MG/2.5ML INH SOL NEB SCH ×3 (07:15→18:06)
[2023-09-30] MEDS: ALBUTEROL MEDNEB 2.5 mg/3ml NEB NEB SCH ×3 (07:15→18:06)
[2023-09-30] MEDS: METOPROLOL TARTRATE 50 MG TAB PO SCH ×2 (08:10→21:49)
[2023-09-30] MEDS: PANTOPRAZOLE 40 MG/10 ML VIAL INJ IV SCH (08:10)
[2023-09-30] MEDS: cefTRIAXone 1GM/50ML D5W 50 ML IV SCH (08:10)
[2023-09-30] MEDS: amLODIPine BESYLATE 5 MG TAB PO SCH (08:11)
[2023-09-30] MEDS: metOLazone 5 MG TAB PO SCH (09:15)
[2023-09-30] MEDS: hydrALAZINE HCL 20 MG/ML VL IV PRN (09:16)
[2023-09-30] MEDS: cloNIDine 0.3 mg/24hr 7DAY PATCH TD SCH (14:00)
[2023-09-30] MEDS ORDERED: Ensure HIGH Protein Chocolate 8oz Bottle PO SCH (18:00)
[2023-10-01] VITALS (12 sets, daily range): BP systolic 128–171; BP diastolic 54–80; PULSE 59–96; RESP 14–19; TEMP 98.3–98.6; O2SAT 80–99
[2023-10-01] MEDS: cloNIDine 0.3 mg/24hr 7DAY PATCH TD SCH (02:56)
[2023-10-01] MEDS: CALCIUM ACETATE 667 MG CAP NG SCH ×3 (05:52→21:32)
[2023-10-01] MEDS: hydrALAZINE HCL 25 MG TAB PO SCH ×3 (05:52→21:33)
[2023-10-01] MEDS: ACCU-CHEK COMFORT CURVE STRIP VI SCH ×3 (05:52→17:46)
[2023-10-01] MEDS: InsuLIN REG 1unit/0.01ml Soln (100units/ml) SC SCH ×3 (05:52→17:48)
[2023-10-01] MEDS: HEPARIN SODIUM (PORCINE) 5000 UNITS/ML 1ML VIAL SC SCH ×3 (05:53→21:41)
[2023-10-01] MEDS: ALBUTEROL MEDNEB 2.5 mg/3ml NEB NEB SCH ×3 (06:42→18:30)
[2023-10-01] MEDS: IPRATROPIUM BROM 0.5 MG/2.5ML INH SOL NEB SCH ×3 (06:42→18:30)
[2023-10-01 06:59] LABS: Basophils # (auto) 0 10 ^3/uL (0-0.2); Basophils % (auto) 0.3 % (0.0-2.0); Eosinophils # (auto) 0.2 10 ^3/uL (0-0.8); Eosinophils % (auto) 1.9 % (0.0-7.0); Hematocrit 26.9 % (36.0-46.0); Hemoglobin 8.8 g/dL (12.2-16.2); Lymphocytes % (auto) 9.5 % (10.0-50.0); Mean Corpuscular Hemoglobin 29.9 pg (28.0-32.0); Mean Corpuscular Hgb Conc. 32.7 g/dL (32.0-36.0); Mean Corpuscular Volume 91.4 fL (80.0-100.0); Monocytes # (auto) 0.9 10 ^3/uL (0-1.3); Monocytes % (auto) 8.3 % (0.0-12.0); Neutrophils # (auto) 8.4 10 ^3/uL (1.6-8.6); Nucleated Red Blood Cells % 0.2 %; Red Blood Cells 2.95 10^6/uL (4.0-5.20); White Blood Cell 10.5 10^3/uL (4.4-10.8)
[2023-10-01 07:16] LABS: Chloride 99 mmol/L (98-107); Potassium 3.3 mmol/L (3.5-5.1); Sodium 136 mmol/L (136-145)
[2023-10-01 07:17] LABS: Anion Gap 12 (5-15); Calcium 8.7 mg/dL (8.7-10.4); Carbon Dioxide 25 mmol/L (20-30)
[2023-10-01 07:22] LABS: Glucose 106 mg/dL (74-106)
[2023-10-01 07:28] LABS: Blood Urea Nitrogen 92 mg/dL (9-23)
[2023-10-01] MEDS: METOPROLOL TARTRATE 50 MG TAB PO SCH ×2 (08:20→21:33)
[2023-10-01] MEDS: amLODIPine BESYLATE 5 MG TAB PO SCH (08:23)
[2023-10-01] MEDS: Nepro With Carbsteady ButterPecan 8oz Carton PO SCH ×3 (08:29→18:42)
[2023-10-01] MEDS: PANTOPRAZOLE 40 MG/10 ML VIAL INJ IV SCH (08:30)
[2023-10-01] MEDS: cefTRIAXone 1GM/50ML D5W 50 ML IV SCH ×2 (08:30→11:19)
[2023-10-01] MEDS: metOLazone 5 MG TAB PO SCH (08:31)
[2023-10-02] VITALS (15 sets, daily range): BP systolic 123–165; BP diastolic 41–77; PULSE 42–73; RESP 16–20; TEMP 97.6–98.6; O2SAT 95–100
[2023-10-02] MEDS: ACCU-CHEK COMFORT CURVE STRIP VI SCH ×4 (00:11→18:09)
[2023-10-02] MEDS: CALCIUM ACETATE 667 MG CAP NG SCH ×3 (05:34→22:29)
[2023-10-02] MEDS: hydrALAZINE HCL 25 MG TAB PO SCH ×3 (05:34→22:30)
[2023-10-02] MEDS: InsuLIN REG 1unit/0.01ml Soln (100units/ml) SC SCH ×4 (05:34→18:13)
[2023-10-02] MEDS: HEPARIN SODIUM (PORCINE) 5000 UNITS/ML 1ML VIAL SC SCH ×3 (05:35→22:46)
[2023-10-02] MEDS: ALBUTEROL MEDNEB 2.5 mg/3ml NEB NEB SCH ×3 (06:06→18:01)
[2023-10-02] MEDS: IPRATROPIUM BROM 0.5 MG/2.5ML INH SOL NEB SCH ×3 (06:06→18:01)
[2023-10-02 06:14] LABS: Basophils # (auto) 0 10 ^3/uL (0-0.2); Basophils % (auto) 0.4 % (0.0-2.0); Eosinophils # (auto) 0.2 10 ^3/uL (0-0.8); Eosinophils % (auto) 1.5 % (0.0-7.0); Hematocrit 26.3 % (36.0-46.0); Hemoglobin 8.5 g/dL (12.2-16.2); Lymphocytes # (auto) 1.2 10 ^3/uL (0.4-5.4); Lymphocytes % (auto) 9.9 % (10.0-50.0); Mean Corpuscular Hemoglobin 29.3 pg (28.0-32.0); Mean Corpuscular Hgb Conc. 32.2 g/dL (32.0-36.0); Mean Corpuscular Volume 90.8 fL (80.0-100.0); Monocytes # (auto) 0.8 10 ^3/uL (0-1.3); Monocytes % (auto) 6.4 % (0.0-12.0); Neutrophils # (auto) 9.8 10 ^3/uL (1.6-8.6); Neutrophils % (auto) 81.8 % (37.0-80.0); Nucleated Red Blood Cells % 0.1 %; Red Cell Distribution Width 14.9 % (11.8-14.3)
[2023-10-02 06:39] LABS: Anion Gap 12 (5-15); Carbon Dioxide 25 mmol/L (20-30); Chloride 99 mmol/L (98-107); Potassium 3.3 mmol/L (3.5-5.1); Sodium 136 mmol/L (136-145)
[2023-10-02 06:40] LABS: Calcium 8.7 mg/dL (8.5-10.1)
[2023-10-02 06:44] LABS: Glucose 115 mg/dL (74-106)
[2023-10-02 06:45] LABS: BUN/Creatinine Ratio 16.4 (10.0-20.0)
[2023-10-02 06:48] LABS: Blood Urea Nitrogen 95 mg/dL (9-23)
[2023-10-02] MEDS: Nepro With Carbsteady ButterPecan 8oz Carton PO SCH ×3 (09:04→18:00)
[2023-10-02] MEDS: PANTOPRAZOLE 40 MG/10 ML VIAL INJ IV SCH (09:04)
[2023-10-02] MEDS: amLODIPine BESYLATE 5 MG TAB PO SCH (09:06)
[2023-10-02] MEDS: METOPROLOL TARTRATE 50 MG TAB PO SCH ×2 (09:06→22:30)
[2023-10-02] MEDS: metOLazone 5 MG TAB PO SCH (09:07)
[2023-10-02] MEDS: ONDANSETRON HCL 4 MG/2 ML VIAL IV PRN (10:33)
[2023-10-02] MEDS ORDERED: POTASSIUM CHL 20MEQ/100ML 100 ML IV ONE (10:45)
[2023-10-02] MEDS ORDERED: HEPARIN SODIUM (PORCINE) 5000 UNITS/ML 1ML VIAL ONE (22:05)
[2023-10-03] VITALS (10 sets, daily range): BP systolic 125–143; BP diastolic 50–72; PULSE 47–87; RESP 17–19; TEMP 97.9–98.7; O2SAT 94–99
[2023-10-03] MEDS: ACCU-CHEK COMFORT CURVE STRIP VI SCH ×5 (00:02→23:51)
[2023-10-03] MEDS: InsuLIN REG 1unit/0.01ml Soln (100units/ml) SC SCH ×5 (00:04→23:55)
[2023-10-03] MEDS: ALBUTEROL MEDNEB 2.5 mg/3ml NEB NEB SCH ×3 (06:00→18:00)
[2023-10-03] MEDS: CALCIUM ACETATE 667 MG CAP NG SCH ×3 (06:00→21:59)
[2023-10-03] MEDS: IPRATROPIUM BROM 0.5 MG/2.5ML INH SOL NEB SCH ×3 (06:00→18:00)
[2023-10-03] MEDS: hydrALAZINE HCL 25 MG TAB PO SCH ×3 (06:01→21:59)
[2023-10-03] MEDS: HEPARIN SODIUM (PORCINE) 5000 UNITS/ML 1ML VIAL SC SCH ×3 (06:09→22:12)
[2023-10-03 06:58] LABS: Basophils # (auto) 0 10 ^3/uL (0-0.2); Basophils % (auto) 0.2 % (0.0-2.0); Hemoglobin 8.3 g/dL (12.2-16.2); Lymphocytes # (auto) 0.8 10 ^3/uL (0.4-5.4); Monocytes # (auto) 0.7 10 ^3/uL (0-1.3); Neutrophils # (auto) 10.2 10 ^3/uL (1.6-8.6); White Blood Cell 11.9 10^3/uL (4.4-10.8)
[2023-10-03 07:01] LABS: Eosinophils # (auto) 0.1 10 ^3/uL (0-0.8); Eosinophils % (auto) 1.2 % (0.0-7.0); Hematocrit 25.4 % (36.0-46.0); Lymphocytes % (auto) 6.6 % (10.0-50.0); Mean Corpuscular Hemoglobin 29.6 pg (28.0-32.0); Mean Corpuscular Hgb Conc. 32.6 g/dL (32.0-36.0); Mean Corpuscular Volume 90.7 fL (80.0-100.0); Monocytes % (auto) 6.2 % (0.0-12.0); Neutrophils % (auto) 85.8 % (37.0-80.0); Red Cell Distribution Width 14.9 % (11.8-14.3)
[2023-10-03 07:42] LABS: Chloride 99 mmol/L (98-107); Potassium 3.9 mmol/L (3.5-5.1); Sodium 137 mmol/L (136-145)
[2023-10-03 07:43] LABS: Anion Gap 12 (5-15); Calcium 8.7 mg/dL (8.5-10.1); Carbon Dioxide 26 mmol/L (20-30)
[2023-10-03 07:48] LABS: Glucose 110 mg/dL (74-106)
[2023-10-03 07:49] LABS: BUN/Creatinine Ratio 16.8 (10.0-20.0)
[2023-10-03 07:53] LABS: Blood Urea Nitrogen 99 mg/dL (9-23)
[2023-10-03] MEDS: Nepro With Carbsteady ButterPecan 8oz Carton PO SCH ×3 (09:16→18:51)
[2023-10-03] MEDS: PANTOPRAZOLE 40 MG TAB PO SCH (09:17)
[2023-10-03] MEDS: metOLazone 5 MG TAB PO SCH (09:17)
[2023-10-03] MEDS: METOPROLOL TARTRATE 50 MG TAB PO SCH (09:17)
[2023-10-03] MEDS: amLODIPine BESYLATE 5 MG TAB PO SCH (09:18)
[2023-10-03] MEDS: METOPROLOL TARTRATE 25 MG TAB PO SCH (22:00)
[2023-10-04] VITALS (12 sets, daily range): BP systolic 119–147; BP diastolic 47–52; PULSE 41–76; RESP 16–19; TEMP 98.2–98.8; O2SAT 94–99
[2023-10-04] MEDS: ONDANSETRON HCL 4 MG/2 ML VIAL IV PRN (04:39)
[2023-10-04] MEDS: InsuLIN REG 1unit/0.01ml Soln (100units/ml) SC SCH ×4 (06:00→23:04)
[2023-10-04] MEDS: IPRATROPIUM BROM 0.5 MG/2.5ML INH SOL NEB SCH ×3 (06:00→18:16)
[2023-10-04] MEDS: ALBUTEROL MEDNEB 2.5 mg/3ml NEB NEB SCH ×3 (06:00→18:16)
[2023-10-04] MEDS: ACCU-CHEK COMFORT CURVE STRIP VI SCH ×4 (06:07→23:05)
[2023-10-04] MEDS: CALCIUM ACETATE 667 MG CAP NG SCH ×3 (06:07→22:04)
[2023-10-04] MEDS: hydrALAZINE HCL 25 MG TAB PO SCH ×3 (06:07→22:04)
[2023-10-04 06:09] LABS: Basophils # (auto) 0 10 ^3/uL (0-0.2); Eosinophils # (auto) 0.2 10 ^3/uL (0-0.8); Hemoglobin 7.8 g/dL (12.2-16.2); Monocytes # (auto) 0.7 10 ^3/uL (0-1.3); Monocytes % (auto) 5.8 % (0.0-12.0)
[2023-10-04 06:13] LABS: Basophils % (auto) 0.2 % (0.0-2.0); Eosinophils % (auto) 1.5 % (0.0-7.0); Hematocrit 23.4 % (36.0-46.0); Lymphocytes % (auto) 7.6 % (10.0-50.0); Mean Corpuscular Hemoglobin 30.1 pg (28.0-32.0); Mean Corpuscular Hgb Conc. 33.2 g/dL (32.0-36.0); Mean Corpuscular Volume 90.7 fL (80.0-100.0); Neutrophils # (auto) 10.7 10 ^3/uL (1.6-8.6); Neutrophils % (auto) 84.9 % (37.0-80.0); Red Blood Cells 2.57 10^6/uL (4.0-5.20); Red Cell Distribution Width 14.6 % (11.8-14.3); White Blood Cell 12.6 10^3/uL (4.4-10.8)
[2023-10-04] MEDS: HEPARIN SODIUM (PORCINE) 5000 UNITS/ML 1ML VIAL SC SCH ×3 (06:13→23:02)
[2023-10-04 06:38] LABS: Chloride 98 mmol/L (98-107); Sodium 134 mmol/L (136-145)
[2023-10-04 06:39] LABS: Anion Gap 10 (5-15); Calcium 8.6 mg/dL (8.7-10.4); Carbon Dioxide 26 mmol/L (20-30)
[2023-10-04 06:44] LABS: Glucose 103 mg/dL (74-106)
[2023-10-04 06:51] LABS: Blood Urea Nitrogen 99 mg/dL (9-23)
[2023-10-04] MEDS: Nepro With Carbsteady ButterPecan 8oz Carton PO SCH ×3 (08:00→18:00)
[2023-10-04] MEDS: metOLazone 5 MG TAB PO SCH (09:30)
[2023-10-04] MEDS: METOPROLOL TARTRATE 25 MG TAB PO SCH ×2 (09:30→22:04)
[2023-10-04] MEDS: PANTOPRAZOLE 40 MG TAB PO SCH (09:30)
[2023-10-04] MEDS: amLODIPine BESYLATE 5 MG TAB PO SCH (09:31)
[2023-10-04] MEDS: BUMETANIDE 1 MG TAB PO SCH (18:03)
[2023-10-04 19:36] LABS: Urine Bacteria FEW /hpf (None Seen); Urine Blood 2+ /uL (Negative); Urine Budding Yeast MANY /hpf (None Seen); Urine Clarity CLOUDY (Clear); Urine Color Yellow (Yellow); Urine Mucus FEW (None Seen); Urine Protein, UAD 2+ (Negative); Urine Specific Gravity 1.017 (1.001-1.035); Urine Urobilinogen Normal (Negative); Urine WBC 1961 /hpf (0 - 5); Urine WBC Clumps PRESENT /hpf (None Seen)
[2023-10-04] MEDS: cloNIDine HCL 0.1 MG TAB PO SCH (22:03)
[2023-10-05] VITALS (10 sets, daily range): BP systolic 121–143; BP diastolic 45–55; PULSE 51–82; RESP 16–19; TEMP 98.1–98.6; O2SAT 97–100
[2023-10-05] MEDS: CALCIUM ACETATE 667 MG CAP NG SCH ×2 (05:49→14:14)
[2023-10-05] MEDS: hydrALAZINE HCL 25 MG TAB PO SCH ×2 (05:50→14:00)
[2023-10-05] MEDS: BUMETANIDE 1 MG TAB PO SCH ×2 (05:50→18:10)
[2023-10-05] MEDS: HEPARIN SODIUM (PORCINE) 5000 UNITS/ML 1ML VIAL SC SCH ×2 (05:56→14:15)
[2023-10-05] MEDS: ACCU-CHEK COMFORT CURVE STRIP VI SCH ×3 (05:57→18:10)
[2023-10-05] MEDS: InsuLIN REG 1unit/0.01ml Soln (100units/ml) SC SCH ×3 (05:57→18:13)
[2023-10-05 06:12] LABS: Basophils # (auto) 0 10 ^3/uL (0-0.2); Basophils % (auto) 0.3 % (0.0-2.0); Eosinophils # (auto) 0.1 10 ^3/uL (0-0.8); Lymphocytes % (auto) 7.4 % (10.0-50.0); Monocytes # (auto) 0.8 10 ^3/uL (0-1.3)
[2023-10-05 06:15] LABS: Eosinophils % (auto) 1.1 % (0.0-7.0); Hematocrit 22.4 % (36.0-46.0); Hemoglobin 7.6 g/dL (12.2-16.2); Lymphocytes # (auto) 0.9 10 ^3/uL (0.4-5.4); Mean Corpuscular Hemoglobin 30.8 pg (28.0-32.0); Mean Corpuscular Hgb Conc. 34.1 g/dL (32.0-36.0); Mean Corpuscular Volume 90.3 fL (80.0-100.0); Monocytes % (auto) 6.6 % (0.0-12.0); Neutrophils # (auto) 10.9 10 ^3/uL (1.6-8.6); Neutrophils % (auto) 84.6 % (37.0-80.0); Red Blood Cells 2.48 10^6/uL (4.0-5.20); Red Cell Distribution Width 14.5 % (11.8-14.3); White Blood Cell 12.9 10^3/uL (4.4-10.8)
[2023-10-05 06:24] LABS: Chloride 97 mmol/L (98-107); Potassium 4.2 mmol/L (3.5-5.1); Sodium 133 mmol/L (136-145)
[2023-10-05 06:25] LABS: Anion Gap 9 (5-15); Calcium 8.6 mg/dL (8.5-10.1); Carbon Dioxide 27 mmol/L (20-30)
[2023-10-05 06:30] LABS: Glucose 123 mg/dL (74-106)
[2023-10-05] MEDS: IPRATROPIUM BROM 0.5 MG/2.5ML INH SOL NEB SCH ×3 (06:33→18:55)
[2023-10-05] MEDS: ALBUTEROL MEDNEB 2.5 mg/3ml NEB NEB SCH ×3 (06:34→18:55)
[2023-10-05 07:11] LABS: Blood Urea Nitrogen 110 mg/dL (9-23)
[2023-10-05] MEDS: Nepro With Carbsteady ButterPecan 8oz Carton PO SCH ×3 (08:17→18:00)
[2023-10-05] MEDS: PANTOPRAZOLE 40 MG TAB PO SCH (09:44)
[2023-10-05] MEDS: amLODIPine BESYLATE 5 MG TAB PO SCH (09:44)
[2023-10-05] MEDS: METOPROLOL TARTRATE 25 MG TAB PO SCH (09:45)
[2023-10-05] MEDS: cloNIDine HCL 0.1 MG TAB PO SCH (09:45)
[2023-10-05] MEDS: metOLazone 5 MG TAB PO SCH (09:46)
[2023-10-05] MEDS ORDERED: cefTRIAXone 1GM/50ML D5W 50 ML IV ONE (12:30)
[2023-10-05] MEDS: ONDANSETRON HCL 4 MG/2 ML VIAL IV PRN (13:56)
[2023-10-05 14:16] LABS: Urine Bacteria FEW /hpf (None Seen); Urine Blood 2+ /uL (Negative); Urine Budding Yeast LOADED /hpf (None Seen); Urine Clarity CLOUDY (Clear); Urine Hyaline Cast MOD /lpf (0 - 2); Urine Mucus FEW (None Seen); Urine Protein, UAD 2+ (Negative); Urine Specific Gravity 1.013 (1.001-1.035); Urine Urobilinogen Normal (Negative); Urine WBC 558 /hpf (0 - 5); Urine WBC Clumps PRESENT /hpf (None Seen); Urine pH 5.5 (5.0-8.0)
[2023-10-05 14:20] LABS: Urine Color STRAW (Yellow)
[2023-10-05] MEDS ORDERED: BUM1T PO (14:58)
[2023-10-05] MEDS ORDERED: CALC10TA PO (14:58)
[2023-10-05] MEDS ORDERED: CEFD300C2 PO (14:58)
[2023-10-05] MEDS ORDERED: METO5TAB5 PO (14:58)
[2023-10-06] MEDS ORDERED: cefTRIAXone 1GM/50ML D5W 50 ML IV SCH (09:00)
== END 2023-10-05 19:16 | disposition home health service (06) | DRG 207 ==
LOC: EDBD 03:37 → ER 03:37 → TELE 13:04 → ICU WEST 09-22 15:54 → ICU CENTRL 09-29 00:25 → TELE-EAST 09-30 08:51
PROVIDERS: ADMIT Internal Medicine; ATTEND Internal Medicine
PROC: 5A1955Z Respiratory Ventilation, Greater than 96 Consecutive Hours (ICD-10-PCS; principal; 2023-09-20)
PROC: 0BH17EZ Insertion of Endotracheal Airway into Trachea, Via Natural or Artificial Opening (ICD-10-PCS; 2023-09-20)
PROC: 02HV33Z Insertion of Infusion Device into Superior Vena Cava, Percutaneous Approach (ICD-10-PCS; 2023-09-20)
PROC: 30233N1 Transfusion of Nonautologous Red Blood Cells into Peripheral Vein, Percutaneous Approach (ICD-10-PCS; 2023-09-21)
PROC: 05HA33Z Insertion of Infusion Device into Left Brachial Vein, Percutaneous Approach (ICD-10-PCS; 2023-09-27)
PROC: B54NZZA Ultrasonography of Left Upper Extremity Veins, Guidance (ICD-10-PCS; 2023-09-27)
DX: J96.01 Acute respiratory failure with hypoxia (principal); I50.43 Acute on chronic combined systolic (congestive) and diastolic (congestive) heart failure; N17.0 Acute kidney failure with tubular necrosis; I21.A1 Myocardial infarction type 2; E87.29 Other acidosis; I16.1 Hypertensive emergency; N18.5 Chronic kidney disease, stage 5; I13.2 Hypertensive heart and chronic kidney disease with heart failure and with stage 5 chronic kidney disease, or end stage renal disease; N13.6 Pyonephrosis; E66.01 Morbid (severe) obesity due to excess calories; D63.1 Anemia in chronic kidney disease; E11.22 Type 2 diabetes mellitus with diabetic chronic kidney disease; E78.5 Hyperlipidemia, unspecified; E87.6 Hypokalemia; E03.9 Hypothyroidism, unspecified; E83.39 Other disorders of phosphorus metabolism; Z88.8 Allergy status to other drugs, medicaments and biological substances; Z68.25 Body mass index [BMI] 25.0-25.9, adult; Z82.49 Family history of ischemic heart disease and other diseases of the circulatory system; Z83.3 Family history of diabetes mellitus; Z80.9 Family history of malignant neoplasm, unspecified
CPT/HCPCS: 31500; 36415; 36556; 36600; 71045; 74176; 76775; 80048; 80053; 80061; 81001; 82270; 82306; 82570; 82805; 82962; 83036; 83605; 83690; 83735; 83880; 83970; 84100; 84156; 84300; 84443; 84484; 85007; 85014; 85018; 85025; 85027; 85379; 85610; 86803; 86850; 86900; 86901; 86920; 87040; 87070; 87081; 87086; 87088; 87205; 87340; 93005; 93306; 94002; 94003; 94640; 97110; 97116; 97163; 97530; 99291; C9113; G0378; J0330; J0696; J1815; J2250; J2405; J2543; J2704; J3480; J3490; J7060

== ENCOUNTER 2023-10-27 13:44 | Inpatient (IN) | payer MEDICARE, MEDICAID ==
[~2023-10-27] VITALS: Ht 170.2 cm; Wt 71.6 kg
[~2023-10-27 13:44] MED LIST changes: +BUM1T PO; +CALC10TA PO; +CEFD300C2 PO; +METO5TAB5 PO
[2023-10-27 15:40] VITALS: BP 175/58; PULSE 98; RESP 20; TEMP 98.1; O2SAT 92
[2023-10-27] MEDS ORDERED: PANC3600 PO (15:53)
[2023-10-27] MEDS ORDERED: VERI5TAB PO (15:53)
[2023-10-27] MEDS ORDERED: NIFE90TA75 PO (15:53)
[2023-10-27] MEDS ORDERED: OMEP-411 (15:53)
[2023-10-27 17:00] VITALS: BP 178/58; PULSE 98; RESP 20; TEMP 98.1; O2SAT 98
[2023-10-27] MEDS ORDERED: PANCREATIC ENZYMES 4200 UNIT CAP PO SCH (18:00)
[2023-10-27] MEDS: SODIUM CHLORIDE 0.9% 1,000 ML IV SCH (18:19)
[2023-10-27] MEDS: GLIMEPIRIDE 2 MG TAB PO SCH (18:25)
[2023-10-27] MEDS: cloNIDine HCL 0.1 MG TAB PO PRN (18:25)
[2023-10-27 20:00] VITALS: PULSE 63; RESP 16; O2SAT 99
[2023-10-27 20:45] LABS: Basophils # (auto) 0 10 ^3/uL (0-0.2); Basophils % (auto) 0.4 % (0.0-2.0); Eosinophils # (auto) 0 10 ^3/uL (0-0.8); Eosinophils % (auto) 0.6 % (0.0-7.0); Hematocrit 22.9 % (36.0-46.0); Hemoglobin 7.7 g/dL (12.2-16.2); Lymphocytes # (auto) 0.6 10 ^3/uL (0.4-5.4); Lymphocytes % (auto) 8.7 % (10.0-50.0); Mean Corpuscular Hemoglobin 30.2 pg (28.0-32.0); Mean Corpuscular Hgb Conc. 33.7 g/dL (32.0-36.0); Mean Corpuscular Volume 89.4 fL (80.0-100.0); Monocytes # (auto) 0.4 10 ^3/uL (0-1.3); Monocytes % (auto) 4.8 % (0.0-12.0); Neutrophils # (auto) 6.3 10 ^3/uL (1.6-8.6); Neutrophils % (auto) 85.5 % (37.0-80.0); Red Blood Cells 2.56 10^6/uL (4.0-5.20); Red Cell Distribution Width 15.4 % (11.8-14.3); White Blood Cell 7.3 10^3/uL (4.4-10.8)
[2023-10-27 20:46] LABS: Chloride 102 mmol/L (98-107); Sodium 133 mmol/L (136-145)
[2023-10-27 20:47] LABS: Anion Gap 10 (5-15); Calcium 8.2 mg/dL (8.7-10.4); Carbon Dioxide 21 mmol/L (20-30)
[2023-10-27 20:52] LABS: BUN/Creatinine Ratio 20.8 (10.0-20.0); Glucose 145 mg/dL (74-106)
[2023-10-27 20:56] LABS: INR 1.09 (0.9-1.15); Partial Thromboplastin Time 29.4 SEC (24.5-34.5); Prothrombin Time 11.4 sec (9.3-11.8)
[2023-10-27 21:03] LABS: Blood Urea Nitrogen 92 mg/dL (9-23)
[2023-10-27 22:00] VITALS: BP 120/61; PULSE 63; RESP 16; TEMP 98.3; O2SAT 99
[2023-10-28] VITALS (9 sets, daily range): BP systolic 117–168; BP diastolic 45–91; PULSE 59–80; RESP 14–20; TEMP 97.4–98.4; O2SAT 97–100
[2023-10-28] MEDS: LEVOTHYROXINE SODIUM 50 MCG TAB PO SCH (06:37)
[2023-10-28] MEDS: GLIMEPIRIDE 2 MG TAB PO SCH ×2 (06:42→18:00)
[2023-10-28] MEDS: CLOPIDOGREL BISULFATE 75 MG TAB PO SCH (10:42)
[2023-10-28] MEDS: PANTOPRAZOLE 40 MG/10 ML VIAL INJ IV SCH (10:43)
[2023-10-28] MEDS: NIFEdipine ER 30 MG TAB PO SCH (10:43)
[2023-10-28] MEDS: SODIUM CHLORIDE 0.9% 1,000 ML IV SCH (13:00)
[2023-10-28 14:09] LABS: % Iron Saturation 33.9 % (15-50)
[2023-10-28 14:52] LABS: Ferritin 577.8 ng/mL (10-291)
[2023-10-28 14:53] LABS: Folate (Folic Acid) 11.5 ng/mL (>5.38)
[2023-10-28] MEDS ORDERED: EPOETIN ALFA-EPBX 10,000 UNIT/1ML VIAL SC ONE (21:00)
[2023-10-29] VITALS (7 sets, daily range): BP systolic 147–171; BP diastolic 55–68; PULSE 63–83; RESP 16–18; TEMP 98.2–98.8; O2SAT 97–100
[2023-10-29] MEDS: LEVOTHYROXINE SODIUM 50 MCG TAB PO SCH (06:00)
[2023-10-29] MEDS: GLIMEPIRIDE 2 MG TAB PO SCH ×2 (06:00→18:00)
[2023-10-29] MEDS: SODIUM CHLORIDE 0.9% 1,000 ML IV SCH (09:29)
[2023-10-29] MEDS: CLOPIDOGREL BISULFATE 75 MG TAB PO SCH (09:46)
[2023-10-29] MEDS: PANTOPRAZOLE 40 MG/10 ML VIAL INJ IV SCH (09:46)
[2023-10-29] MEDS: NIFEdipine ER 30 MG TAB PO SCH (09:47)
[2023-10-29 12:30] LABS: Alanine Aminotransferase 11 U/L (7-40); Albumin 4.1 g/dL (3.2-4.8); Alkaline Phosphatase 46 U/L (46-116); Anion Gap 12 (5-15); Aspartate Aminotransferase 13 U/L (13-40); BUN/Creatinine Ratio 19.2 (10.0-20.0); Bilirubin, Total 0.4 mg/dL (0.2-1.0); Calcium 8.9 mg/dL (8.5-10.1); Carbon Dioxide 19 mmol/L (20-30); Chloride 107 mmol/L (98-107); Glucose 90 mg/dL (74-106); Potassium 4.1 mmol/L (3.5-5.1); Sodium 138 mmol/L (136-145); Total Protein 6.9 g/dL (5.7-8.2)
[2023-10-29 12:32] LABS: Blood Urea Nitrogen 75 mg/dL (9-23)
[2023-10-29 12:33] LABS: Basophils # (auto) 0 10 ^3/uL (0-0.2); Basophils % (auto) 0.6 % (0.0-2.0); Eosinophils # (auto) 0.1 10 ^3/uL (0-0.8); Hematocrit 32.8 % (36.0-46.0); Hemoglobin 10.9 g/dL (12.2-16.2); Lymphocytes # (auto) 0.6 10 ^3/uL (0.4-5.4); Lymphocytes % (auto) 7.8 % (10.0-50.0); Mean Corpuscular Hemoglobin 29.5 pg (28.0-32.0); Mean Corpuscular Hgb Conc. 33.1 g/dL (32.0-36.0); Monocytes # (auto) 0.4 10 ^3/uL (0-1.3); Monocytes % (auto) 5.9 % (0.0-12.0); Neutrophils # (auto) 6.1 10 ^3/uL (1.6-8.6); Neutrophils % (auto) 83.7 % (37.0-80.0); Nucleated Red Blood Cells % 0.1 %; Red Blood Cells 3.68 10^6/uL (4.0-5.20); Red Cell Distribution Width 16.5 % (11.8-14.3); White Blood Cell 7.3 10^3/uL (4.4-10.8)
[2023-10-30 05:00] VITALS: BP 155/68; PULSE 84; RESP 16; TEMP 99; O2SAT 99
[2023-10-30] MEDS: LEVOTHYROXINE SODIUM 50 MCG TAB PO SCH (06:42)
[2023-10-30] MEDS: SODIUM CHLORIDE 0.9% 1,000 ML IV SCH (06:43)
[2023-10-30] MEDS: GLIMEPIRIDE 2 MG TAB PO SCH ×2 (06:43→18:00)
[2023-10-30 09:00] VITALS: BP 154/58; PULSE 80; RESP 16; TEMP 98.5; O2SAT 100
[2023-10-30] MEDS: PANTOPRAZOLE 40 MG/10 ML VIAL INJ IV SCH (09:18)
[2023-10-30] MEDS: CLOPIDOGREL BISULFATE 75 MG TAB PO SCH (09:19)
[2023-10-30] MEDS: NIFEdipine ER 30 MG TAB PO SCH (09:19)
[2023-10-30] MEDS: cloNIDine HCL 0.1 MG TAB PO PRN (12:35)
[2023-10-30 13:00] VITALS: BP 168/68; PULSE 87; RESP 16; TEMP 98.8; O2SAT 99
[2023-10-30 17:00] VITALS: BP 154/61; PULSE 75; RESP 18; TEMP 97.9; O2SAT 91
[2023-10-30 20:00] VITALS: RESP 16; O2SAT 99
[2023-10-30 22:00] VITALS: BP 148/55; PULSE 69; RESP 18; TEMP 98.1; O2SAT 96
[2023-10-30] MEDS: LACTULOSE 20Gm/30ML SOLN PO PRN (22:03)
[2023-10-31] VITALS (7 sets, daily range): BP systolic 136–161; BP diastolic 48–65; PULSE 68–82; RESP 17–18; TEMP 97.7–98.4; O2SAT 93–100
[2023-10-31] MEDS: SODIUM CHLORIDE 0.9% 1,000 ML IV SCH ×2 (01:00→21:00)
[2023-10-31] MEDS: LEVOTHYROXINE SODIUM 50 MCG TAB PO SCH (06:20)
[2023-10-31] MEDS: GLIMEPIRIDE 2 MG TAB PO SCH ×2 (06:20→18:42)
[2023-10-31] MEDS: PANTOPRAZOLE 40 MG/10 ML VIAL INJ IV SCH (09:25)
[2023-10-31] MEDS: NIFEdipine ER 30 MG TAB PO SCH (09:26)
[2023-10-31] MEDS: CLOPIDOGREL BISULFATE 75 MG TAB PO SCH (09:26)
[2023-10-31 16:03] LABS: Basophils # (auto) 0 10 ^3/uL (0-0.2); Basophils % (auto) 0.5 % (0.0-2.0); Eosinophils # (auto) 0.1 10 ^3/uL (0-0.8); Eosinophils % (auto) 1.8 % (0.0-7.0); Hematocrit 28.9 % (36.0-46.0); Hemoglobin 9.5 g/dL (12.2-16.2); Lymphocytes # (auto) 0.8 10 ^3/uL (0.4-5.4); Lymphocytes % (auto) 10.6 % (10.0-50.0); Mean Corpuscular Hemoglobin 29.3 pg (28.0-32.0); Mean Corpuscular Hgb Conc. 32.9 g/dL (32.0-36.0); Mean Corpuscular Volume 89.1 fL (80.0-100.0); Monocytes # (auto) 0.5 10 ^3/uL (0-1.3); Monocytes % (auto) 7.2 % (0.0-12.0); Neutrophils # (auto) 5.8 10 ^3/uL (1.6-8.6); Neutrophils % (auto) 79.9 % (37.0-80.0); Red Blood Cells 3.25 10^6/uL (4.0-5.20); Red Cell Distribution Width 16.4 % (11.8-14.3); White Blood Cell 7.3 10^3/uL (4.4-10.8)
[2023-10-31 16:15] LABS: Alanine Aminotransferase 10 U/L (7-40); Albumin 3.7 g/dL (3.2-4.8); Alkaline Phosphatase 45 U/L (46-116); Anion Gap 9 (5-15); Aspartate Aminotransferase 9 U/L (13-40); Blood Urea Nitrogen 59 mg/dL (9-23); Calcium 8.1 mg/dL (8.7-10.4); Carbon Dioxide 19 mmol/L (20-30); Chloride 110 mmol/L (98-107); Glucose 134 mg/dL (74-106); Potassium 4.4 mmol/L (3.5-5.1); Sodium 138 mmol/L (136-145)
[2023-10-31 16:16] LABS: Bilirubin, Total 0.3 mg/dL (0.2-1.0); Total Protein 6.5 g/dL (5.7-8.2)
[2023-10-31] MEDS: PANCREATIC ENZYMES 4200 UNIT CAP PO SCH (18:00)
[2023-10-31] MEDS: cloNIDine HCL 0.1 MG TAB PO PRN (18:43)
[2023-11-01] VITALS (7 sets, daily range): BP systolic 120–149; BP diastolic 51–66; PULSE 57–78; RESP 16–18; TEMP 97.5–98.5; O2SAT 95–100
[2023-11-01] MEDS: LEVOTHYROXINE SODIUM 50 MCG TAB PO SCH (06:20)
[2023-11-01] MEDS: GLIMEPIRIDE 2 MG TAB PO SCH ×2 (08:26→18:00)
[2023-11-01] MEDS: PANCREATIC ENZYMES 4200 UNIT CAP PO SCH ×3 (08:27→18:00)
[2023-11-01] MEDS: CLOPIDOGREL BISULFATE 75 MG TAB PO SCH (08:28)
[2023-11-01] MEDS: NIFEdipine ER 30 MG TAB PO SCH (08:30)
[2023-11-01] MEDS: PANTOPRAZOLE 40 MG/10 ML VIAL INJ IV SCH (08:31)
[2023-11-01] MEDS: LACTULOSE 20Gm/30ML SOLN PO PRN (13:53)
[2023-11-01] MEDS: SODIUM CHLORIDE 0.9% 1,000 ML IV SCH (17:16)
[2023-11-01] MEDS: LINZESS 145 MCG PO SCH (18:00)
[2023-11-01 19:00] LABS: Basophils # (auto) 0 10 ^3/uL (0-0.2); Basophils % (auto) 0.5 % (0.0-2.0); Eosinophils # (auto) 0.1 10 ^3/uL (0-0.8); Eosinophils % (auto) 1.7 % (0.0-7.0); Hematocrit 30.8 % (36.0-46.0); Hemoglobin 9.9 g/dL (12.2-16.2); Lymphocytes # (auto) 0.7 10 ^3/uL (0.4-5.4); Lymphocytes % (auto) 8.8 % (10.0-50.0); Mean Corpuscular Hemoglobin 29.3 pg (28.0-32.0); Mean Corpuscular Hgb Conc. 32.2 g/dL (32.0-36.0); Monocytes # (auto) 0.5 10 ^3/uL (0-1.3); Monocytes % (auto) 6.6 % (0.0-12.0); Neutrophils # (auto) 6.8 10 ^3/uL (1.6-8.6); Neutrophils % (auto) 82.4 % (37.0-80.0); Red Blood Cells 3.39 10^6/uL (4.0-5.20); Red Cell Distribution Width 16.8 % (11.8-14.3); White Blood Cell 8.2 10^3/uL (4.4-10.8)
[2023-11-01 19:08] LABS: Chloride 110 mmol/L (98-107); Potassium 4.2 mmol/L (3.5-5.1); Sodium 138 mmol/L (136-145)
[2023-11-01 19:09] LABS: Anion Gap 8 (5-15); Calcium 8.5 mg/dL (8.7-10.4); Carbon Dioxide 20 mmol/L (20-30)
[2023-11-01 19:14] LABS: Blood Urea Nitrogen 57 mg/dL (9-23); Glucose 93 mg/dL (74-106)
[2023-11-02 01:23] LABS: Urine Bacteria MOD /hpf (None Seen); Urine Blood 1+ /uL (Negative); Urine Budding Yeast FEW /hpf (None Seen); Urine Clarity CLOUDY (Clear); Urine Color Yellow (Yellow); Urine Protein, UAD 3+ (Negative); Urine Specific Gravity 1.016 (1.001-1.035); Urine Urobilinogen Normal (Negative); Urine WBC 1377 /hpf (0 - 5); Urine WBC Clumps PRESENT /hpf (None Seen)
[2023-11-02 05:00] VITALS: BP 146/66; PULSE 79; RESP 18; TEMP 97.9; O2SAT 99
[2023-11-02] MEDS: LEVOTHYROXINE SODIUM 50 MCG TAB PO SCH (06:50)
[2023-11-02] MEDS: GLIMEPIRIDE 2 MG TAB PO SCH ×2 (08:00→17:52)
[2023-11-02 09:00] VITALS: BP 159/76; PULSE 82; RESP 18; TEMP 98.6; O2SAT 100
[2023-11-02] MEDS: PANCREATIC ENZYMES 4200 UNIT CAP PO SCH ×3 (09:03→17:53)
[2023-11-02] MEDS: CLOPIDOGREL BISULFATE 75 MG TAB PO SCH (09:03)
[2023-11-02] MEDS: PANTOPRAZOLE 40 MG/10 ML VIAL INJ IV SCH (09:04)
[2023-11-02] MEDS: NIFEdipine ER 30 MG TAB PO SCH (10:59)
[2023-11-02] MEDS: SODIUM CHLORIDE 0.9% 1,000 ML IV SCH (11:00)
[2023-11-02 13:00] VITALS: BP 165/85; PULSE 94; RESP 16; TEMP 98.2; O2SAT 100
[2023-11-02 17:00] VITALS: BP 141/70; PULSE 86; RESP 18; TEMP 98.2; O2SAT 100
[2023-11-02] MEDS: LINZESS 145 MCG PO SCH (17:52)
[2023-11-02 20:00] VITALS: PULSE 84; RESP 18
[2023-11-02 22:00] VITALS: BP 167/69; PULSE 84; RESP 18; TEMP 97.4; O2SAT 99
[2023-11-02] MEDS: cloNIDine HCL 0.1 MG TAB PO PRN (23:15)
[2023-11-03] VITALS (7 sets, daily range): BP systolic 142–177; BP diastolic 52–76; PULSE 58–83; RESP 16–18; TEMP 97.8–98.6; O2SAT 98–100
[2023-11-03] MEDS: LEVOTHYROXINE SODIUM 50 MCG TAB PO SCH (06:33)
[2023-11-03] MEDS: SODIUM CHLORIDE 0.9% 1,000 ML IV SCH (09:00)
[2023-11-03] MEDS: CLOPIDOGREL BISULFATE 75 MG TAB PO SCH (10:24)
[2023-11-03] MEDS: PANTOPRAZOLE 40 MG/10 ML VIAL INJ IV SCH (10:24)
[2023-11-03] MEDS: cloNIDine HCL 0.1 MG TAB PO PRN (10:25)
[2023-11-03] MEDS: NIFEdipine ER 30 MG TAB PO SCH (10:25)
[2023-11-03] MEDS: PANCREATIC ENZYMES 4200 UNIT CAP PO SCH ×3 (10:26→18:14)
[2023-11-03] MEDS: GLIMEPIRIDE 2 MG TAB PO SCH ×2 (10:34→18:14)
[2023-11-03 13:32] LABS: Basophils # (auto) 0 10 ^3/uL (0-0.2); Basophils % (auto) 0.5 % (0.0-2.0); Eosinophils # (auto) 0.1 10 ^3/uL (0-0.8); Eosinophils % (auto) 1.7 % (0.0-7.0); Hematocrit 30.4 % (36.0-46.0); Hemoglobin 9.9 g/dL (12.2-16.2); Lymphocytes # (auto) 0.6 10 ^3/uL (0.4-5.4); Lymphocytes % (auto) 8.6 % (10.0-50.0); Mean Corpuscular Hemoglobin 29.2 pg (28.0-32.0); Mean Corpuscular Hgb Conc. 32.5 g/dL (32.0-36.0); Mean Corpuscular Volume 89.9 fL (80.0-100.0); Monocytes # (auto) 0.4 10 ^3/uL (0-1.3); Monocytes % (auto) 5.4 % (0.0-12.0); Neutrophils # (auto) 6.3 10 ^3/uL (1.6-8.6); Neutrophils % (auto) 83.8 % (37.0-80.0); Red Blood Cells 3.38 10^6/uL (4.0-5.20); Red Cell Distribution Width 16.7 % (11.8-14.3); White Blood Cell 7.5 10^3/uL (4.4-10.8)
[2023-11-03 13:42] LABS: Chloride 112 mmol/L (98-107); Potassium 4.3 mmol/L (3.5-5.1); Sodium 139 mmol/L (136-145)
[2023-11-03 13:44] LABS: Anion Gap 9 (5-15); Calcium 8.4 mg/dL (8.7-10.4); Carbon Dioxide 18 mmol/L (20-30)
[2023-11-03 13:49] LABS: BUN/Creatinine Ratio 17.8 (10.0-20.0); Blood Urea Nitrogen 65 mg/dL (9-23); Glucose 183 mg/dL (74-106)
[2023-11-03] MEDS: LINZESS 145 MCG PO SCH (18:00)
[2023-11-04] MEDS: cloNIDine HCL 0.1 MG TAB PO PRN ×4 (00:05→18:21)
[2023-11-04 05:00] VITALS: BP 157/68; PULSE 65; RESP 16; TEMP 98.1; O2SAT 98
[2023-11-04] MEDS: SODIUM CHLORIDE 0.9% 1,000 ML IV SCH ×3 (05:00→21:45)
[2023-11-04] MEDS: LEVOTHYROXINE SODIUM 50 MCG TAB PO SCH (06:39)
[2023-11-04 08:00] VITALS: BP 172/71; PULSE 64; RESP 18; TEMP 98.2; O2SAT 100
[2023-11-04] MEDS: PANTOPRAZOLE 40 MG/10 ML VIAL INJ IV SCH (10:38)
[2023-11-04] MEDS: CLOPIDOGREL BISULFATE 75 MG TAB PO SCH (10:38)
[2023-11-04] MEDS: NIFEdipine ER 30 MG TAB PO SCH (10:38)
[2023-11-04] MEDS: PANCREATIC ENZYMES 4200 UNIT CAP PO SCH ×3 (10:39→18:16)
[2023-11-04] MEDS: LACTULOSE 20Gm/30ML SOLN PO PRN (10:42)
[2023-11-04] MEDS: GLIMEPIRIDE 2 MG TAB PO SCH ×2 (10:43→18:00)
[2023-11-04 12:00] VITALS: BP 171/68; PULSE 68; RESP 17; TEMP 97.4; O2SAT 100
[2023-11-04 16:00] VITALS: BP 168/77; PULSE 73; RESP 18; TEMP 98.2; O2SAT 98
[2023-11-04] MEDS: LINZESS 145 MCG PO SCH (18:00)
[2023-11-04 22:00] VITALS: BP 178/72; PULSE 75; RESP 16; TEMP 97.7; O2SAT 98
[2023-11-04] MEDS ORDERED: hydrALAZINE HCL 25 MG TAB ONE (22:25)
[2023-11-04] MEDS: hydrALAZINE HCL 25 MG TAB PO PRN (22:28)
[2023-11-05] MEDS: ONDANSETRON HCL 4 MG/2 ML VIAL IV PRN (01:38)
[2023-11-05] MEDS: cloNIDine HCL 0.1 MG TAB PO PRN (01:39)
[2023-11-05] MEDS: SODIUM CHLORIDE 0.9% 1,000 ML IV SCH ×4 (02:50→21:42)
[2023-11-05 05:00] VITALS: BP_SYST 104; BP_SYST 186; BP_DIAS 41; BP_DIAS 80; PULSE 73; PULSE 92; RESP 16; RESP 17; TEMP 98.1; TEMP 98.4; O2SAT 100; O2SAT 99
[2023-11-05 06:05] LABS: Anion Gap 11 (5-15); Carbon Dioxide 16 mmol/L (20-30); Chloride 112 mmol/L (98-107); Potassium 3.9 mmol/L (3.5-5.1); Sodium 139 mmol/L (136-145)
[2023-11-05 06:07] LABS: Calcium 8.2 mg/dL (8.7-10.4)
[2023-11-05 06:11] LABS: Glucose 131 mg/dL (74-106)
[2023-11-05 06:12] LABS: BUN/Creatinine Ratio 17.9 (10.0-20.0); Blood Urea Nitrogen 60 mg/dL (9-23)
[2023-11-05] MEDS ORDERED: hydrALAZINE HCL 25 MG TAB ONE (06:48)
[2023-11-05] MEDS: LACTULOSE 20Gm/30ML SOLN PO PRN (06:53)
[2023-11-05] MEDS: hydrALAZINE HCL 25 MG TAB PO PRN ×2 (06:53→18:38)
[2023-11-05] MEDS: LEVOTHYROXINE SODIUM 50 MCG TAB PO SCH (06:53)
[2023-11-05] MEDS: GLIMEPIRIDE 2 MG TAB PO SCH ×2 (08:00→18:00)
[2023-11-05 09:00] VITALS: BP 156/66; PULSE 79; RESP 18; TEMP 98; O2SAT 96
[2023-11-05] MEDS: PANTOPRAZOLE 40 MG/10 ML VIAL INJ IV SCH (10:11)
[2023-11-05] MEDS: CLOPIDOGREL BISULFATE 75 MG TAB PO SCH (10:11)
[2023-11-05] MEDS: NIFEdipine ER 30 MG TAB PO SCH (10:12)
[2023-11-05] MEDS: PANCREATIC ENZYMES 4200 UNIT CAP PO SCH ×3 (10:13→18:00)
[2023-11-05 13:00] VITALS: BP 138/56; PULSE 73; RESP 18; TEMP 98.3; O2SAT 96
[2023-11-05 17:00] VITALS: BP 160/66; PULSE 90; RESP 18; TEMP 97.5; O2SAT 99
[2023-11-05] MEDS: LINZESS 145 MCG PO SCH (17:12)
[2023-11-05] MEDS ORDERED: hydrALAZINE HCL 20 MG/ML VL ONE (18:31)
[2023-11-05 22:00] VITALS: BP 158/68; PULSE 90; RESP 17; TEMP 98.8; O2SAT 99
[2023-11-06] VITALS (7 sets, daily range): BP systolic 125–164; BP diastolic 60–76; PULSE 89–105; RESP 18–24; TEMP 98.3–99.5; O2SAT 93–99
[2023-11-06] MEDS: SODIUM CHLORIDE 0.9% 1,000 ML IV SCH ×3 (05:20→18:50)
[2023-11-06] MEDS: hydrALAZINE HCL 25 MG TAB PO PRN (05:32)
[2023-11-06] MEDS: LEVOTHYROXINE SODIUM 50 MCG TAB PO SCH (05:33)
[2023-11-06] MEDS: PANCREATIC ENZYMES 4200 UNIT CAP PO SCH ×3 (08:00→18:00)
[2023-11-06] MEDS: NIFEdipine ER 30 MG TAB PO SCH (11:19)
[2023-11-06] MEDS: CLOPIDOGREL BISULFATE 75 MG TAB PO SCH (11:19)
[2023-11-06] MEDS: PANTOPRAZOLE 40 MG/10 ML VIAL INJ IV SCH (11:20)
[2023-11-06] MEDS: GLIMEPIRIDE 2 MG TAB PO SCH ×2 (15:01→19:36)
[2023-11-06] MEDS: LINZESS 145 MCG PO SCH (18:00)
[2023-11-06] MEDS: ACETAMINOPHEN 325 MG TAB PO PRN (23:12)
[2023-11-07] VITALS (13 sets, daily range): BP systolic 144–186; BP diastolic 64–91; PULSE 66–119; RESP 16–20; TEMP 97.6–98.3; O2SAT 91–99
[2023-11-07] MEDS: SODIUM CHLORIDE 0.9% 1,000 ML IV SCH ×2 (01:48→08:10)
[2023-11-07] MEDS: cloNIDine HCL 0.1 MG TAB PO PRN ×2 (06:46→17:57)
[2023-11-07] MEDS: LEVOTHYROXINE SODIUM 50 MCG TAB PO SCH (06:46)
[2023-11-07] MEDS: GLIMEPIRIDE 2 MG TAB PO SCH ×2 (07:53→18:00)
[2023-11-07] MEDS: PANCREATIC ENZYMES 4200 UNIT CAP PO SCH ×3 (07:54→18:06)
[2023-11-07] MEDS ORDERED: cefTRIAXone 1GM/50ML D5W 50 ML IV SCH (09:00)
[2023-11-07] MEDS: hydrALAZINE HCL 25 MG TAB PO PRN ×2 (09:19→22:50)
[2023-11-07] MEDS: PANTOPRAZOLE 40 MG/10 ML VIAL INJ IV SCH (09:19)
[2023-11-07] MEDS: CLOPIDOGREL BISULFATE 75 MG TAB PO SCH (09:19)
[2023-11-07] MEDS: ALBUTEROL SULF 2.5 MG/0.5ML(0.5%) NEB SOLN NEB PRN ×2 (09:20→18:45)
[2023-11-07] MEDS: NIFEdipine ER 30 MG TAB PO SCH (10:38)
[2023-11-07] MEDS: ACETAMINOPHEN 325 MG TAB PO PRN ×2 (11:41→22:59)
[2023-11-07] MEDS: AZITHROMYCIN 500MG/ 250ML 250 ML IV SCH (15:29)
[2023-11-07] MEDS: LINZESS 145 MCG PO SCH (18:00)
[2023-11-07 18:18] LABS: Urine Bacteria NONE SEEN /hpf (None Seen); Urine Clarity CLEAR (Clear); Urine Color YELLOW (Yellow); Urine WBC 400 /hpf (0 - 5); Urine WBC Clumps PRESENT /hpf (None Seen)
[2023-11-07 18:19] LABS: Urine Blood Trace /uL (Negative); Urine Protein, UAD 3+ (Negative); Urine Urobilinogen Normal (Negative)
[2023-11-07 18:20] LABS: Urine Specific Gravity 1.015 (1.001-1.035); Urine pH 6 (5.0-8.0)
[2023-11-07 18:51] LABS: COVID19 ANTIGEN SOFIA FIA NEGATIVE (NEGATIVE)
[2023-11-08] VITALS (11 sets, daily range): BP systolic 111–163; BP diastolic 70–88; PULSE 85–107; RESP 14–22; TEMP 97–98.2; O2SAT 93–95
[2023-11-08] MEDS: cloNIDine HCL 0.1 MG TAB PO PRN (02:19)
[2023-11-08] MEDS: LEVOTHYROXINE SODIUM 50 MCG TAB PO SCH (06:49)
[2023-11-08] MEDS: PANCREATIC ENZYMES 4200 UNIT CAP PO SCH ×3 (08:33→17:32)
[2023-11-08] MEDS: PANTOPRAZOLE 40 MG/10 ML VIAL INJ IV SCH (09:04)
[2023-11-08] MEDS: GLIMEPIRIDE 2 MG TAB PO SCH ×2 (09:04→17:30)
[2023-11-08] MEDS: NIFEdipine ER 30 MG TAB PO SCH (09:05)
[2023-11-08] MEDS: AZITHROMYCIN 500MG/ 250ML 250 ML IV SCH (09:21)
[2023-11-08] MEDS: ONDANSETRON HCL 4 MG/2 ML VIAL IV PRN (09:24)
[2023-11-08] MEDS: ACETAMINOPHEN 325 MG TAB PO PRN (09:25)
[2023-11-08] MEDS: CLOPIDOGREL BISULFATE 75 MG TAB PO SCH (10:41)
[2023-11-08] MEDS: ALBUTEROL SULF 2.5 MG/0.5ML(0.5%) NEB SOLN NEB PRN (11:17)
[2023-11-08] MEDS ORDERED: FUROSEMIDE 40 MG/4 ML VIAL IV ONE (17:15)
[2023-11-08] MEDS: ALBUTEROL SULF 2.5 MG/0.5ML(0.5%) NEB SOLN NEB SCH (18:00)
[2023-11-09] VITALS (13 sets, daily range): BP systolic 121–144; BP diastolic 52–82; PULSE 77–116; RESP 16–24; TEMP 97.4–97.6; O2SAT 91–99
[2023-11-09] MEDS: ACETAMINOPHEN 325 MG TAB PO PRN ×2 (02:13→23:59)
[2023-11-09] MEDS: cloNIDine HCL 0.1 MG TAB PO PRN (02:13)
[2023-11-09] MEDS: ALBUTEROL SULF 2.5 MG/0.5ML(0.5%) NEB SOLN NEB SCH ×4 (03:00→20:01)
[2023-11-09] MEDS: LEVOTHYROXINE SODIUM 50 MCG TAB PO SCH (06:43)
[2023-11-09] MEDS: GLIMEPIRIDE 2 MG TAB PO SCH ×2 (08:03→18:18)
[2023-11-09] MEDS: PANCREATIC ENZYMES 4200 UNIT CAP PO SCH ×3 (08:04→18:18)
[2023-11-09] MEDS: NIFEdipine ER 30 MG TAB PO SCH (10:05)
[2023-11-09] MEDS: CLOPIDOGREL BISULFATE 75 MG TAB PO SCH (10:06)
[2023-11-09] MEDS: PANTOPRAZOLE 40 MG/10 ML VIAL INJ IV SCH (11:34)
[2023-11-09] MEDS: AZITHROMYCIN 500MG/ 250ML 250 ML IV SCH (11:34)
[2023-11-09] MEDS: ONDANSETRON HCL 4 MG/2 ML VIAL IV PRN (11:50)
[2023-11-09 12:25] LABS: Basophils # (auto) 0 10 ^3/uL (0-0.2); Basophils % (auto) 0.1 % (0.0-2.0); Eosinophils # (auto) 0 10 ^3/uL (0-0.8); Hematocrit 26.8 % (36.0-46.0); Hemoglobin 8.7 g/dL (12.2-16.2); Lymphocytes # (auto) 0.2 10 ^3/uL (0.4-5.4); Lymphocytes % (auto) 1.7 % (10.0-50.0); Mean Corpuscular Hemoglobin 29.2 pg (28.0-32.0); Mean Corpuscular Hgb Conc. 32.6 g/dL (32.0-36.0); Mean Corpuscular Volume 89.5 fL (80.0-100.0); Monocytes # (auto) 0.6 10 ^3/uL (0-1.3); Monocytes % (auto) 4.7 % (0.0-12.0); Neutrophils # (auto) 10.9 10 ^3/uL (1.6-8.6); Neutrophils % (auto) 93.5 % (37.0-80.0); Red Blood Cells 2.99 10^6/uL (4.0-5.20); Red Cell Distribution Width 17.4 % (11.8-14.3); White Blood Cell 11.7 10^3/uL (4.4-10.8)
[2023-11-09 12:41] LABS: Alanine Aminotransferase 33 U/L (7-40); Albumin 4.3 g/dL (3.2-4.8); Alkaline Phosphatase 66 U/L (46-116); Anion Gap 14 (5-15); Aspartate Aminotransferase 23 U/L (13-40); BUN/Creatinine Ratio 15.8 (10.0-20.0); Blood Urea Nitrogen 62 mg/dL (9-23); Calcium 8.7 mg/dL (8.5-10.1); Carbon Dioxide 14 mmol/L (20-30); Chloride 105 mmol/L (98-107); Glucose 189 mg/dL (74-106)
[2023-11-09 12:42] LABS: Bilirubin, Total 0.2 mg/dL (0.2-1.0); Total Protein 7.4 g/dL (5.7-8.2)
[2023-11-09 13:33] LABS: Sodium 133 mmol/L (136-145)
[2023-11-09 14:41] LABS: Base Excess -15.7 mmol/L (-2.0-2.0)
[2023-11-09] MEDS ORDERED: SODIUM BICARBONATE 8.4 % INJ 50ML VIAL IV ONE ×2 (16:15→17:00)
[2023-11-09] MEDS: D5W/SOD CHL 0.45% 1,000 ML IV SCH (17:14)
[2023-11-09] MEDS: MEROPENEM 500MG IVPB 50 ML IV SCH (23:02)
[2023-11-10] VITALS (16 sets, daily range): BP systolic 121–173; BP diastolic 41–78; PULSE 94–112; RESP 18–19; TEMP 97.5–97.6; O2SAT 88–100
[2023-11-10] MEDS: ALBUTEROL SULF 2.5 MG/0.5ML(0.5%) NEB SOLN NEB SCH ×4 (00:26→18:48)
[2023-11-10] MEDS ORDERED: ACETAMINOPHEN 325 MG TAB PO PRN (00:45)
[2023-11-10] MEDS ORDERED: FUROSEMIDE 20 MG/2 ML VIAL IV ONE (00:45)
[2023-11-10 05:05] LABS: Base Excess -12.2 mmol/L (-2.0-2.0)
[2023-11-10] MEDS: LEVOTHYROXINE SODIUM 50 MCG TAB PO SCH (07:00)
[2023-11-10] MEDS ORDERED: AZITHROMYCIN 500MG/ 250ML 250 ML IV SCH (08:00)
[2023-11-10] MEDS: GLIMEPIRIDE 2 MG TAB PO SCH ×2 (08:00→18:00)
[2023-11-10] MEDS ORDERED: FUROSEMIDE 40 MG/4 ML VIAL IV ONE (08:30)
[2023-11-10] MEDS: CLOPIDOGREL BISULFATE 75 MG TAB PO SCH (08:56)
[2023-11-10] MEDS: PANTOPRAZOLE 40 MG/10 ML VIAL INJ IV SCH (08:56)
[2023-11-10] MEDS: NIFEdipine ER 30 MG TAB PO SCH (08:57)
[2023-11-10] MEDS: PANCREATIC ENZYMES 4200 UNIT CAP PO SCH ×3 (08:57→18:00)
[2023-11-10] MEDS: D5W/SOD CHL 0.45% 1,000 ML IV SCH (12:15)
[2023-11-10] MEDS: MEROPENEM 500MG IVPB 50 ML IV SCH ×2 (12:25→23:58)
[2023-11-10] MEDS: hydrALAZINE HCL 25 MG TAB PO PRN (12:26)
[2023-11-10] MEDS: SODIUM BICARBONATE 50ML VIAL 50 ML in D5W/SOD CHL 0.45% 1,000 ML IV SCH (14:00)
[2023-11-10 15:50] LABS: Base Excess -10.5 mmol/L (-2.0-2.0)
[2023-11-10] MEDS: SODIUM CITR/CITRIC ACID ORAL SOLN 30 ML PO SCH (22:00)
[2023-11-11] VITALS (13 sets, daily range): BP systolic 127–151; BP diastolic 57–66; PULSE 89–113; RESP 17–24; TEMP 97.4–98.6; O2SAT 90–96
[2023-11-11] MEDS: hydrALAZINE HCL 25 MG TAB PO PRN
[2023-11-11 05:32] LABS: Basophils # (auto) 0 10 ^3/uL (0-0.2); Eosinophils # (auto) 0 10 ^3/uL (0-0.8); Lymphocytes # (auto) 0.2 10 ^3/uL (0.4-5.4)
[2023-11-11 05:34] LABS: Hematocrit 25.2 % (36.0-46.0); Hemoglobin 8.1 g/dL (12.2-16.2); Mean Corpuscular Hemoglobin 30.1 pg (28.0-32.0); Mean Corpuscular Hgb Conc. 32.3 g/dL (32.0-36.0); Mean Corpuscular Volume 93.3 fL (80.0-100.0); Monocytes # (auto) 0.5 10 ^3/uL (0-1.3); Monocytes % (auto) 4.7 % (0.0-12.0); Neutrophils % (auto) 93.3 % (37.0-80.0); White Blood Cell 10.7 10^3/uL (4.4-10.8)
[2023-11-11 05:37] LABS: Chloride 106 mmol/L (98-107); Potassium 3.6 mmol/L (3.5-5.1); Sodium 136 mmol/L (136-145)
[2023-11-11 05:38] LABS: Anion Gap 17 (5-15); Calcium 8.3 mg/dL (8.5-10.1); Carbon Dioxide 13 mmol/L (20-30)
[2023-11-11 05:43] LABS: BUN/Creatinine Ratio 14.6 (10.0-20.0); Blood Urea Nitrogen 62 mg/dL (9-23); Glucose 160 mg/dL (74-106)
[2023-11-11] MEDS: LEVOTHYROXINE SODIUM 50 MCG TAB PO SCH (06:28)
[2023-11-11] MEDS: ALBUTEROL SULF 2.5 MG/0.5ML(0.5%) NEB SOLN NEB SCH ×4 (06:55→20:04)
[2023-11-11] MEDS ORDERED: POTASSIUM EFFERVESENT TAB 25 MEQ PO ONE (07:15)
[2023-11-11] MEDS: GLIMEPIRIDE 2 MG TAB PO SCH ×2 (08:49→17:25)
[2023-11-11] MEDS: PANCREATIC ENZYMES 4200 UNIT CAP PO SCH ×3 (08:50→17:17)
[2023-11-11 09:04] LABS: Urine Bacteria NONE SEEN /hpf (None Seen); Urine Blood 2+ /uL (Negative); Urine Budding Yeast MODERATE /hpf (None Seen); Urine Clarity CLOUDY (Clear); Urine Color Yellow (Yellow); Urine Protein, UAD 3+ (Negative); Urine Specific Gravity 1.016 (1.001-1.035); Urine Urobilinogen Normal (Negative); Urine WBC 477 /hpf (0 - 5); Urine WBC Clumps PRESENT /hpf (None Seen)
[2023-11-11] MEDS: SODIUM CITR/CITRIC ACID ORAL SOLN 30 ML PO SCH ×3 (10:00→22:00)
[2023-11-11] MEDS: MEROPENEM 500MG IVPB 50 ML IV SCH ×2 (10:36→22:00)
[2023-11-11] MEDS: PANTOPRAZOLE 40 MG/10 ML VIAL INJ IV SCH (10:37)
[2023-11-11] MEDS: CLOPIDOGREL BISULFATE 75 MG TAB PO SCH (10:48)
[2023-11-11] MEDS: NIFEdipine ER 30 MG TAB PO SCH (10:49)
[2023-11-11] MEDS: SODIUM BICARBONATE 50ML VIAL 50 ML in D5W/SOD CHL 0.45% 1,000 ML IV SCH (12:28)
[2023-11-11 20:04] LABS: Base Excess -7.2 mmol/L (-2.0-2.0)
[2023-11-12] VITALS (16 sets, daily range): BP systolic 131–171; BP diastolic 59–84; PULSE 100–113; RESP 18–22; TEMP 36.3; O2SAT 92–97
[2023-11-12] MEDS: ALBUTEROL SULF 2.5 MG/0.5ML(0.5%) NEB SOLN NEB SCH ×4 (00:35→16:45)
[2023-11-12] MEDS: ONDANSETRON HCL 4 MG/2 ML VIAL IV PRN (00:37)
[2023-11-12] MEDS ORDERED: FUROSEMIDE 40 MG/4 ML VIAL IV ONE (02:30)
[2023-11-12] MEDS: LEVOTHYROXINE SODIUM 50 MCG TAB PO SCH (06:47)
[2023-11-12] MEDS: SODIUM BICARBONATE 50ML VIAL 50 ML in D5W/SOD CHL 0.45% 1,000 ML IV SCH (08:00)
[2023-11-12] MEDS: MEROPENEM 500MG IVPB 50 ML IV SCH (08:58)
[2023-11-12] MEDS: PANTOPRAZOLE 40 MG/10 ML VIAL INJ IV SCH (08:58)
[2023-11-12] MEDS: GLIMEPIRIDE 2 MG TAB PO SCH ×2 (08:59→18:45)
[2023-11-12] MEDS: NIFEdipine ER 30 MG TAB PO SCH (08:59)
[2023-11-12] MEDS: CLOPIDOGREL BISULFATE 75 MG TAB PO SCH (08:59)
[2023-11-12] MEDS: PANCREATIC ENZYMES 4200 UNIT CAP PO SCH ×3 (09:00→18:45)
[2023-11-12] MEDS: SODIUM CITR/CITRIC ACID ORAL SOLN 30 ML PO SCH (09:00)
== END 2023-11-12 18:58 | disposition hospice, home (50) | DRG 682 ==
LOC: WEST WING 15:25 → TELE-WESTW 11-10 01:06
PROVIDERS: ADMIT Internal Medicine Cardiovascular Disease; ATTEND Internal Medicine Cardiovascular Disease
PROC: 30233N1 Transfusion of Nonautologous Red Blood Cells into Peripheral Vein, Percutaneous Approach (ICD-10-PCS; principal; 2023-10-28)
DX: N17.9 Acute kidney failure, unspecified (principal); G93.41 Metabolic encephalopathy; J96.90 Respiratory failure, unspecified, unspecified whether with hypoxia or hypercapnia; E87.29 Other acidosis; I50.32 Chronic diastolic (congestive) heart failure; I11.0 Hypertensive heart disease with heart failure; K58.9 Irritable bowel syndrome, unspecified; Z20.822 Contact with and (suspected) exposure to COVID-19; D64.9 Anemia, unspecified; E03.9 Hypothyroidism, unspecified; Z82.49 Family history of ischemic heart disease and other diseases of the circulatory system
CPT/HCPCS: 36415; 36600; 71045; 74018; 80048; 80053; 81001; 82140; 82607; 82728; 82746; 82805; 82962; 83540; 83550; 83615; 83735; 83880; 84550; 85025; 85045; 85610; 85730; 86850; 86900; 86901; 86920; 87040; 87426; 93005; 94640; 97110; 97116; 97163; 97530; C9113; G0378; J2185; J2405